=== PATIENT | male | born 1965 | race Caucasian/White ===

== ENCOUNTER 2020-04-23 08:57 | Outpatient (REF) | payer OTHER, SELFPAY ==
[2020-04-23 11:14] LABS: MANUAL DIFF FLAG NO
[2020-04-23 11:27] LABS: Basophils Absolute Auto 0.1 X10*3/uL (0.0-0.2); Eosinophils Absolute Auto 0.3 X10*3/uL (0.0-0.4); Eosinophils Percent Auto 6.8 % (0-4); Hematocrit 49.6 % (42-52); Hemoglobin 16.4 g/dl (14.0-18.0); Imm Gran Abs Auto 0.02 X10*3/uL (0.00-0.03); Imm Gran Pct Auto 0.4 % (0.0-0.4); Lymphocytes Absolute Auto 1.7 X10*3/uL (1.2-4.9); Lymphocytes Percent Auto 33.4 % (20-40); Mean Corpuscular HGB Conc 33.1 g/dl (31.0-36.0); Mean Corpuscular Volume 90.8 fL (80-98); Mean Platelet Volume 10.2 fL (9.4-12.4); Monocytes Absolute Auto 0.5 X10*3/uL (0.1-1.2); Monocytes Percent Auto 10.1 % (2-11); Neutrophils Absolute Auto 2.4 X10*3/uL (2.0-8.3); Neutrophils Percent Auto 48.3 % (45-73); Platelet Count 277 X10*3/uL (160-400); Red Blood Count 5.46 X10*6/uL (4.60-5.80); Red Cell Distribution Width 13.5 % (11.0-16.0)
[2020-04-23 12:04] LABS: Alanine Aminotransferase 74 U/L (0-40); Albumin Level 4.3 g/dL (3.5-5.0); Alkaline Phosphatase 105 U/L (39-117); Anion Gap 16 (12-20); Aspartate Amino Transferase 54 U/L (5-37); Bilirubin Total 0.7 mg/dL (0.0-1.0); Blood Urea Nitrogen 17 mg/dL (9-16); Carbon Dioxide 22 mmol/L (22-29); Chloride 105 mmol/L (96-108); Cholesterol 241 mg/dL; Estimated Glomerular Filt Rate > 60; Glucose Fasting 102 mg/dL (60-99); HDL Cholesterol 58 mg/dL; LDL Cholesterol Calculated 154 mg/dl; Potassium 4.9 mmol/l (3.3-5.1); Sodium 138 mmol/L (135-145); Total Protein 7.8 g/dL (6.5-8.0); Triglycerides 148 mg/dL
== END 2020-04-23 08:58 | disposition home or self-care (01) ==
LOC: HO.HMGCLDS 08:57
PROVIDERS: PCP Internal Medicine; Visit Provider Internal Medicine
DX: Z00.01 Encounter for general adult medical examination with abnormal findings (principal); K21.9 Gastro-esophageal reflux disease without esophagitis; E78.5 Hyperlipidemia, unspecified
CPT/HCPCS: 36415; 80053; 80061; 85025

== ENCOUNTER 2021-04-14 08:09 | Outpatient (REF) | payer OTHER, SELFPAY ==
[2021-04-14 12:35] LABS: Alanine Aminotransferase 78 U/L (0-40); Aspartate Amino Transferase 42 U/L (5-37); Cholesterol 212 mg/dL; Glucose Fasting 103 mg/dL (60-99); HDL Cholesterol 47 mg/dL; LDL Cholesterol Calculated 125 mg/dl; Triglycerides 201 mg/dL
== END 2021-04-14 08:10 | disposition home or self-care (01) ==
LOC: HO.HMGCLDS 08:09
PROVIDERS: PCP Internal Medicine; Visit Provider Internal Medicine
DX: E78.5 Hyperlipidemia, unspecified (principal); R73.01 Impaired fasting glucose
CPT/HCPCS: 36415; 80061; 82947; 84450; 84460

== ENCOUNTER 2021-06-04 09:45 | Outpatient (REF) | payer OTHER, SELFPAY ==
--- NOTE | ~2021-06-04 | XR_ITS ---
EXAMINATION: XR CHEST CLINICAL INFORMATION: Covid 19 COMPARISON: CT chest 06/12/2019. Chest x-ray 04/14/2016. TECHNIQUE: 2 views of the chest were obtained. FINDINGS: The lungs are expanded with patchy opacity seen in both lung bases and left midlung. Heart size and perivascular is normal. No gross bony abnormality seen. XR/XR chest 2V IMPRESSION: In patchy opacities in both lower lobes and left midlung suggestive of infiltrates or scarring. There is no recent chest x-ray available for comparison.
[2021-06-04 11:06] LABS: MANUAL DIFF FLAG NO
[2021-06-04 11:23] LABS: Basophils Absolute Auto 0.1 X10*3/uL (0.0-0.2); Basophils Percent Auto 1.2 % (0-2); Eosinophils Absolute Auto 0.5 X10*3/uL (0.0-0.4); Eosinophils Percent Auto 9.5 % (0-4); Hematocrit 46.5 % (42.0-52.0); Hemoglobin 15.1 g/dl (14.0-18.0); Lymphocytes Absolute Auto 1.7 X10*3/uL (1.2-4.9); Mean Corpuscular HGB Conc 32.5 g/dl (31.0-36.0); Mean Corpuscular Hemoglobin 29.5 pg (27.0-33.0); Mean Corpuscular Volume 90.8 fL (80.0-98.0); Mean Platelet Volume 9.3 fL (9.4-12.4); Monocytes Absolute Auto 0.5 X10*3/uL (0.1-1.2); Monocytes Percent Auto 10.5 % (2-11); Neutrophils Absolute Auto 2.1 x10*3/uL (2.0-8.3); Neutrophils Percent Auto 42.8 % (45-73); Platelet Count 600 X10*3/uL (160-400); Red Blood Count 5.12 X10*6/uL (4.60-5.80); Red Cell Distribution Width 12.8 % (11.0-16.0)
== END 2021-06-04 09:46 | disposition home or self-care (01) ==
LOC: HO.HMGCX 09:45
PROVIDERS: PCP Internal Medicine; Visit Provider Internal Medicine
DX: U07.1 COVID-19 (principal)
CPT/HCPCS: 36415; 71046; 85025

== ENCOUNTER 2021-06-13 10:25 | Outpatient (REF) | payer OTHER, SELFPAY ==
--- NOTE | ~2021-06-13 | XR_ITS ---
EXAMINATION: XR CHEST CLINICAL INFORMATION: Covid 19 COMPARISON: Chest x-ray on 06/04/2021 TECHNIQUE: 2 views of the chest were obtained. FINDINGS: Bilateral diffuse minimal lung zone predominant hazy opacities. No pleural effusions. No pneumothoraces. The cardiomediastinal silhouette is normal. XR/XR chest 2V IMPRESSION: Findings consistent with Covid pneumonia.
== END 2021-06-13 10:26 | disposition home or self-care (01) ==
LOC: HO.HMGCX 10:25
PROVIDERS: Visit Provider Physician Assistant Medical
DX: U07.1 COVID-19 (principal)
CPT/HCPCS: 71046

== ENCOUNTER 2021-06-13 15:21 | Emergency (ER) | payer OTHER, SELFPAY ==
--- NOTE | ~2021-06-13 | CT_ITS ---
EXAMINATION: CT ANGIOGRAM OF THE CHEST WITH AND WITHOUT CONTRAST (CT PULMONARY ANGIOGRAM FOR PE) CLINICAL INFORMATION: Reason for Exam sob s/p covid COMPARISON: None TECHNIQUE: Prior to contrast administration, noncontrast localization images were obtained. Subsequently, multidetector volumetric imaging was performed from the thoracic inlet to below the diaphragms following the administration of 80 mL Omnipaque 350 intravenous contrast. No contrast reaction reported Sagittal, coronal, and MIP oblique sagittal reformatted images were obtained on the CT workstation, uploaded to PACS, and reviewed. This CT examination was performed using dose optimization techniques as appropriate, variously including the following: *Automated exposure control *Adjustment of mA and/or kV according to patient size (this includes techniques or standardized protocols for targeted exams where dose is matched to indication/reason for exam; i.e. extremities or head) *Use of iterative reconstruction technique Total exam dose-length product 350 mGy-cm FINDINGS: QUALITY OF STUDY/CONTRAST BOLUS: Somewhat unsatisfactory bolus. There is nearly as much contrast in the aorta as the pulmonary arteries. PULMONARY ARTERIES: No convincing evidence for filling defect to suggest PE. Motion also limits this exam. THORACIC AORTA: No aneurysm or dissection. LUNG: Scattered areas of infiltrate in the lungs. These are predominantly peripheral. Bilateral lower lobes and left upper lobe greater than right upper lobe. PLEURA: No pleural effusion or pneumothorax. MEDIASTINUM: Some central adenopathy may be reactive. Attention to follow-up No evidence of septal bowing or right heart strain. CHEST WALL/AXILLA: No axillary or internal mammary lymphadenopathy. OSSEOUS STRUCTURES: No acute or suspicious osseous abnormality. UPPER ABDOMEN: Unremarkable. No reflux of contrast into the hepatic veins to suggest elevated right heart pressures. CT/CT angio chest PE protocol IMPRESSION: There is some limitation here due to late bolus and motion but no convincing evidence for filling defect to suggest a pulmonary embolism though it would be difficult to exclude a very peripheral embolism. Areas of infiltrate are noted with some central adenopathy which may be reactive. Attention to follow-up. VTE: negative
[2021-06-13 15:29] VITALS: BP 116/82; PULSE 87; RESP 18; TEMP 36.4; O2SAT 96; BMI 26.3
--- NOTE | 2021-06-13 19:54 | ECG_ITS ---
Test Reason : ?BLOOD CLOT Blood Pressure : / mmHG Vent. Rate : 079 BPM Atrial Rate : 079 BPM P-R Int : 148 ms QRS Dur : 086 ms QT Int : 370 ms P-R-T Axes : 060 020 020 degrees QTc Int : 424 ms Artifact in tracing Normal sinus rhythm Normal ECG When compared with ECG of 19-OCT-2017 04:19, No significant change was found Referred By: Generic ED Physician Electronically Signed By:KYRIE DELGADO
[2021-06-13 20:53] LABS: MANUAL DIFF FLAG NO
[2021-06-13 20:55] LABS: Basophils Absolute Auto 0.1 X10*3/uL (0.0-0.2); Basophils Percent Auto 1.1 % (0-2); Eosinophils Absolute Auto 0.5 X10*3/uL (0.0-0.4); Eosinophils Percent Auto 7.3 % (0-4); Hematocrit 45.7 % (42.0-52.0); Hemoglobin 15.2 g/dl (14.0-18.0); Imm Gran Abs Auto 0.01 X10*3/uL (0.00-0.03); Imm Gran Pct Auto 0.2 % (0.0-0.4); Lymphocytes Absolute Auto 2.3 X10*3/uL (1.2-4.9); Lymphocytes Percent Auto 35.1 % (20-40); Mean Corpuscular HGB Conc 33.3 g/dl (31.0-36.0); Mean Corpuscular Hemoglobin 30.1 pg (27.0-33.0); Mean Corpuscular Volume 90.5 fL (80.0-98.0); Mean Platelet Volume 9.3 fL (9.4-12.4); Monocytes Absolute Auto 0.7 X10*3/uL (0.1-1.2); Monocytes Percent Auto 10.4 % (2-11); Neutrophils Percent Auto 45.9 % (45-73); Platelet Count 329 X10*3/uL (160-400); Red Blood Count 5.05 X10*6/uL (4.60-5.80); Red Cell Distribution Width 13.5 % (11.0-16.0); White Blood Count 6.4 X10*3/uL (4.8-10.8)
[2021-06-13 21:02] LABS: D Dimer High Sensitivity 400 NG/ML
[2021-06-13 21:08] LABS: Anion Gap 12 (12-20); Blood Urea Nitrogen 8 mg/dL (9-16); Carbon Dioxide 25 mmol/L (22-29); Chloride 105 mmol/L (96-108); Creatinine Clr Calc Pharmacy 118.8; Estimated Glomerular Filt Rate > 60; Glucose Random 96 mg/dL (60-115); Potassium 4.2 mmol/L (3.3-5.1); Sodium 138 mmol/L (135-145)
[2021-06-13 21:12] LABS: COVID-19 Test Negative (Negative)
[2021-06-13 21:16] LABS: Troponin-I High Sensitivity < 3.5 ng/L (<3.5-35.0)
--- NOTE | 2021-06-13 22:08 | ED.GENADULT ---
HPI - General Adult General Chief complaint: General Medical Stated complaint: CT scan to rule out blood clot PCP referral Time Seen by Provider: 06/13/21 22:08 Source: patient Mode of arrival: ambulatory Limitations: no limitations History of Present Illness HPI narrative: Patient's history of COVID on 05/21 received prednisone 2 courses of antibiotics unable to get the monoclonal antibodies already received 2 doses of COVID vaccine in the past still on prednisone sent by PCP for increased shortness of breath which is not getting better saturating 96% at room air feels tight in his lungs no chest pain Related Data Home Medications Medication Instructions Recorded Confirmed flu vac [id number] 36mos up(PF) ml IM 04/23/20 04/27/21 lansoprazole 15 mg capsule,delayed 15 mg PO DAILY 12/09/20 04/27/21 release (Prevacid) Previous Rx's Medication Instructions Recorded lovastatin 20 mg tablet 20 mg PO DAILY #30 tab 12/09/20 valacyclovir 1 gram tablet 2,000 mg PO Q12H #4 tab 12/09/20 albuterol sulfate 90 mcg/actuation 2 puff INHALATION Q4-6H PRN #8.5 g 06/09/21 aerosol inhaler levofloxacin 750 mg tablet 750 mg PO DAILY 5 Days #5 tab 06/13/21 prednisone 20 mg tablet 40 mg PO DAILY 5 Days #10 tab 06/13/21 Allergies Allergy/AdvReac Type Severity Reaction Status Date / Time hydromorphone [Dilaudid] Allergy Mild throat Verified 06/13/21 15:29 closed/swelling Review of Systems Review of Systems: Yes all other systems are reviewed and are negative PMFSH Past Medical History Medical History Annual visit for general adult medical examination with abnormal findings COVID-19 virus infection Dyslipidemia (high LDL; low HDL) GERD (gastroesophageal reflux disease) Impaired fasting glucose Persistent cough Recurrent cold sores Surgical History Hx of colonoscopy No pertinent past surgical history Family History Family History Father HTN (hypertension) CVD (cardiovascular disease) Myocardial infarction Mother Diabetes mellitus Lung cancer Stroke Daughter No problems noted. Sister No problems noted. Sister No problems noted. Sister No problems noted. Social History Social History Housing: House Alcohol intake: never Patient Tobacco Use Status: Never used Tobacco e-Cigarette/Vaping Use: Never Used Second Hand Smoke Exposure: No Advance Directives: No Advance Directives Information Provided: Yes service: No Current occupational status: employed Physical Exam Vital Signs: Vital Signs: Last Vital Signs Temp 97.6 F 06/13/21 15:29 Pulse 87 06/13/21 15:29 Resp 18 06/13/21 15:29 BP 116/82 06/13/21 15:29 Pulse Ox 96 06/13/21 15:29 BMI result Body Mass Index 26.3 Appearance: Alert. Oriented X3. No acute distress. ENT: Pharynx normal. Oral Mucosa moist Neck: Normal inspection. Neck supple. CVS: Normal heart rate and rhythm. Pulses normal. Respiratory: No respiratory distress. Equal air entry bilateral, no wheezing/rales/rhonchi Abdomen: Soft and nontender. Bowel sounds are present, no mass palpable, Skin: Skin warm and dry. Normal skin color. Normal skin turgor. Extremities: No lower extremity edema. No calf tenderness Neuro: Oriented X 3. No motor deficit. Medical Decision Making MDM Narrative Medical decision making narrative: Patient is status post COVID order been weakened against COVID CTA chest showed for blood changes in bilateral lungs. No PE. Patient advised to continue prednisone and follow up with behavioral health specialist and do the incentive spirometry Lab Data Lab results reviewed: Yes I reviewed the patient's lab results. Result diagrams: 06/13/21 20:47 06/13/21 20:47 Labs: Lab Results 06/13/21 06/13/21 06/13/21 Range/Units 20:37 20:47 20:47 WBC 6.4 (4.8-10.8) X10*3/uL RBC 5.05 (4.60-5.80) X10*6/uL Hgb 15.2 (14.0-18.0) g/dl Hct 45.7 (42.0-52.0) % MCV 90.5 (80.0-98.0) fL MCH 30.1 (27.0-33.0) pg MCHC 33.3 (31.0-36.0) g/dl RDW 13.5 (11.0-16.0) % Plt Count 329 D (160-400) X10*3/uL MPV 9.3 L (9.4-12.4) fL Immature Gran % (Auto) 0.2 (0.0-0.4) % Neut % (Auto) 45.9 (45-73) % Lymph % (Auto) 35.1 (20-40) % [place] % (Auto) 10.4 (2-11) % Eos % (Auto) 7.3 H (0-4) % Baso % (Auto) 1.1 (0-2) % Lymph # (Auto) 2.3 (1.2-4.9) X10*3/uL [place] # (Auto) 0.7 (0.1-1.2) X10*3/uL Eos # (Auto) 0.5 H (0.0-0.4) X10*3/uL Baso # (Auto) 0.1 (0.0-0.2) X10*3/uL Abs Immat Gran (auto) 0.01 (0.00-0.03) X10*3/uL Absolute Neuts (auto) 3.0 (2.0-8.3) x10*3/uL Absolute Nucleated RBC 0.000 (0.0-0.012) X10*3/uL Nucleated RBC % (auto) 0.0 (0.0-0.2) /100WBC D-Dimer High Sensitivty NG/ML Sodium 138 (135-145) mmol/L Potassium 4.2 (3.3-5.1) mmol/L Chloride 105 (96-108) mmol/L Carbon Dioxide 25 (22-29) mmol/L Anion Gap 12 (12-20) BUN 8 L (9-16) mg/dL Creatinine 0.78 (0.5-1.4) mg/dL Estim Creat Clear Calc 118.8 Estimated GFR > 60 Random Glucose 96 (60-115) mg/dL Calcium 9.0 (8.4-10.2) mg/dL Troponin I High Sens (<3.5-35.0) ng/L COVID-19 ([facility]) Negative (Negative) COVID-19 Clin Com See Note 06/13/21 06/13/21 Range/Units 20:47 20:48 WBC (4.8-10.8) X10*3/uL RBC (4.60-5.80) X10*6/uL Hgb (14.0-18.0) g/dl Hct (42.0-52.0) % MCV (80.0-98.0) fL MCH (27.0-33.0) pg MCHC (31.0-36.0) g/dl RDW (11.0-16.0) % Plt Count (160-400) X10*3/uL MPV (9.4-12.4) fL Immature Gran % (Auto) (0.0-0.4) % Neut % (Auto) (45-73) % Lymph % (Auto) (20-40) % [place] % (Auto) (2-11) % Eos % (Auto) (0-4) % Baso % (Auto) (0-2) % Lymph # (Auto) (1.2-4.9) X10*3/uL [place] # (Auto) (0.1-1.2) X10*3/uL Eos # (Auto) (0.0-0.4) X10*3/uL Baso # (Auto) (0.0-0.2) X10*3/uL Abs Immat Gran (auto) (0.00-0.03) X10*3/uL Absolute Neuts (auto) (2.0-8.3) x10*3/uL Absolute Nucleated RBC (0.0-0.012) X10*3/uL Nucleated RBC % (auto) (0.0-0.2) /100WBC D-Dimer High Sensitivty 400 NG/ML Sodium (135-145) mmol/L Potassium (3.3-5.1) mmol/L Chloride (96-108) mmol/L Carbon Dioxide (22-29) mmol/L Anion Gap (12-20) BUN (9-16) mg/dL Creatinine (0.5-1.4) mg/dL Estim Creat Clear Calc Estimated GFR Random Glucose (60-115) mg/dL Calcium (8.4-10.2) mg/dL Troponin I High Sens < 3.5 (<3.5-35.0) ng/L COVID-19 ([facility]) (Negative) COVID-19 Clin Com Discharge Plan Discharge Clinical Impression: Post-COVID chronic dyspnea Patient Disposition: Home, Self-Care Instructions: COVID-19 (Coronavirus Disease 2019) (ED) Additional Instructions: Do incentive spirometry as advised Follow with PCP if any concerns Continue to use inhaler every 4-6 hours as needed continue prednisone Follow with pulmonology Prescriptions: No Action albuterol sulfate 90 mcg/actuation HFA aerosol inhaler 2 puff inhalation Q4-6H PRN (Reason: shortness of breath or wheezing) Qty: 8.5 RF: 0 Afluria Qd 2019-(3yr up)(PF) 60 mcg (15 mcg x 4)/0.5 mL syringe IM RF: 0 lansoprazole [Prevacid] 15 mg capsule,delayed release(DR/EC) 15 mg PO DAILY RF: 0 valacyclovir 1 gram tablet 2,000 mg PO Q12H Qty: 4 RF: 5 lovastatin 20 mg tablet 20 mg PO DAILY Qty: 30 RF: 5 levofloxacin 750 mg tablet 750 mg PO DAILY 5 Days Qty: 5 RF: 0 prednisone 20 mg tablet 40 mg PO DAILY 5 Days Qty: 10 RF: 0 Interventions: ED Discharge Assessment Last Done: 06/14/21 00:40 Discharge Date/Time: 06/14/21 00:42
[2021-06-13] MEDS: iohexoL 350 MG/ML 100 ML INFUS..BTL 65 ML IV (23:30)
--- NOTE | 2021-06-14 01:25 | ED.GENADULT ---
HPI - General Adult General Chief complaint: General Medical Stated complaint: CT scan to rule out blood clot PCP referral Time Seen by Provider: 06/13/21 22:08 Source: patient Mode of arrival: ambulatory Limitations: no limitations Related Data Home Medications Medication Instructions Recorded Confirmed flu vac [id number] 36mos up(PF) ml IM 04/23/20 04/27/21 lansoprazole 15 mg capsule,delayed 15 mg PO DAILY 12/09/20 04/27/21 release (Prevacid) Previous Rx's Medication Instructions Recorded lovastatin 20 mg tablet 20 mg PO DAILY #30 tab 12/09/20 valacyclovir 1 gram tablet 2,000 mg PO Q12H #4 tab 12/09/20 albuterol sulfate 90 mcg/actuation 2 puff INHALATION Q4-6H PRN #8.5 g 06/09/21 aerosol inhaler levofloxacin 750 mg tablet 750 mg PO DAILY 5 Days #5 tab 06/13/21 prednisone 20 mg tablet 40 mg PO DAILY 5 Days #10 tab 06/13/21 Allergies Allergy/AdvReac Type Severity Reaction Status Date / Time hydromorphone [Dilaudid] Allergy Mild throat Verified 06/13/21 15:29 closed/swelling PMFSH Past Medical History Medical History Annual visit for general adult medical examination with abnormal findings COVID-19 virus infection Dyslipidemia (high LDL; low HDL) GERD (gastroesophageal reflux disease) Impaired fasting glucose Persistent cough Recurrent cold sores Surgical History Hx of colonoscopy No pertinent past surgical history Family History Family History Father HTN (hypertension) CVD (cardiovascular disease) Myocardial infarction Mother Diabetes mellitus Lung cancer Stroke Daughter No problems noted. Sister No problems noted. Sister No problems noted. Sister No problems noted. Social History Social History Housing: House Alcohol intake: never Patient Tobacco Use Status: Never used Tobacco e-Cigarette/Vaping Use: Never Used Second Hand Smoke Exposure: No Advance Directives: No Advance Directives Information Provided: Yes service: No Current occupational status: employed Physical Exam Vital Signs: Vital Signs: Last Vital Signs Temp 97.6 F 06/13/21 15:29 Pulse 87 06/13/21 15:29 Resp 18 06/13/21 15:29 BP 116/82 06/13/21 15:29 Pulse Ox 96 06/13/21 15:29 BMI result Body Mass Index 26.3 Medical Decision Making Lab Data Result diagrams: 06/13/21 20:47 06/13/21 20:47 Labs: Lab Results 06/13/21 06/13/21 06/13/21 Range/Units 20:37 20:47 20:47 WBC 6.4 (4.8-10.8) X10*3/uL RBC 5.05 (4.60-5.80) X10*6/uL Hgb 15.2 (14.0-18.0) g/dl Hct 45.7 (42.0-52.0) % MCV 90.5 (80.0-98.0) fL MCH 30.1 (27.0-33.0) pg MCHC 33.3 (31.0-36.0) g/dl RDW 13.5 (11.0-16.0) % Plt Count 329 D (160-400) X10*3/uL MPV 9.3 L (9.4-12.4) fL Immature Gran % (Auto) 0.2 (0.0-0.4) % Neut % (Auto) 45.9 (45-73) % Lymph % (Auto) 35.1 (20-40) % [place] % (Auto) 10.4 (2-11) % Eos % (Auto) 7.3 H (0-4) % Baso % (Auto) 1.1 (0-2) % Lymph # (Auto) 2.3 (1.2-4.9) X10*3/uL [place] # (Auto) 0.7 (0.1-1.2) X10*3/uL Eos # (Auto) 0.5 H (0.0-0.4) X10*3/uL Baso # (Auto) 0.1 (0.0-0.2) X10*3/uL Abs Immat Gran (auto) 0.01 (0.00-0.03) X10*3/uL Absolute Neuts (auto) 3.0 (2.0-8.3) x10*3/uL Absolute Nucleated RBC 0.000 (0.0-0.012) X10*3/uL Nucleated RBC % (auto) 0.0 (0.0-0.2) /100WBC D-Dimer High Sensitivty NG/ML Sodium 138 (135-145) mmol/L Potassium 4.2 (3.3-5.1) mmol/L Chloride 105 (96-108) mmol/L Carbon Dioxide 25 (22-29) mmol/L Anion Gap 12 (12-20) BUN 8 L (9-16) mg/dL Creatinine 0.78 (0.5-1.4) mg/dL Estim Creat Clear Calc 118.8 Estimated GFR > 60 Random Glucose 96 (60-115) mg/dL Calcium 9.0 (8.4-10.2) mg/dL Troponin I High Sens (<3.5-35.0) ng/L COVID-19 ([facility]) Negative (Negative) COVID-19 Clin Com See Note 06/13/21 06/13/21 Range/Units 20:47 20:48 WBC (4.8-10.8) X10*3/uL RBC (4.60-5.80) X10*6/uL Hgb (14.0-18.0) g/dl Hct (42.0-52.0) % MCV (80.0-98.0) fL MCH (27.0-33.0) pg MCHC (31.0-36.0) g/dl RDW (11.0-16.0) % Plt Count (160-400) X10*3/uL MPV (9.4-12.4) fL Immature Gran % (Auto) (0.0-0.4) % Neut % (Auto) (45-73) % Lymph % (Auto) (20-40) % [place] % (Auto) (2-11) % Eos % (Auto) (0-4) % Baso % (Auto) (0-2) % Lymph # (Auto) (1.2-4.9) X10*3/uL [place] # (Auto) (0.1-1.2) X10*3/uL Eos # (Auto) (0.0-0.4) X10*3/uL Baso # (Auto) (0.0-0.2) X10*3/uL Abs Immat Gran (auto) (0.00-0.03) X10*3/uL Absolute Neuts (auto) (2.0-8.3) x10*3/uL Absolute Nucleated RBC (0.0-0.012) X10*3/uL Nucleated RBC % (auto) (0.0-0.2) /100WBC D-Dimer High Sensitivty 400 NG/ML Sodium (135-145) mmol/L Potassium (3.3-5.1) mmol/L Chloride (96-108) mmol/L Carbon Dioxide (22-29) mmol/L Anion Gap (12-20) BUN (9-16) mg/dL Creatinine (0.5-1.4) mg/dL Estim Creat Clear Calc Estimated GFR Random Glucose (60-115) mg/dL Calcium (8.4-10.2) mg/dL Troponin I High Sens < 3.5 (<3.5-35.0) ng/L COVID-19 ([facility]) (Negative) COVID-19 Clin Com Discharge Plan Discharge Clinical Impression: Post-COVID chronic dyspnea Patient Disposition: Home, Self-Care Instructions: COVID-19 (Coronavirus Disease 2019) (ED) Additional Instructions: Do incentive spirometry as advised Follow with PCP if any concerns Continue to use inhaler every 4-6 hours as needed continue prednisone Follow with pulmonology Prescriptions: No Action albuterol sulfate 90 mcg/actuation HFA aerosol inhaler 2 puff inhalation Q4-6H PRN (Reason: shortness of breath or wheezing) Qty: 8.5 RF: 0 Afluria Qd 2019-(3yr up)(PF) 60 mcg (15 mcg x 4)/0.5 mL syringe IM RF: 0 lansoprazole [Prevacid] 15 mg capsule,delayed release(DR/EC) 15 mg PO DAILY RF: 0 valacyclovir 1 gram tablet 2,000 mg PO Q12H Qty: 4 RF: 5 lovastatin 20 mg tablet 20 mg PO DAILY Qty: 30 RF: 5 levofloxacin 750 mg tablet 750 mg PO DAILY 5 Days Qty: 5 RF: 0 prednisone 20 mg tablet 40 mg PO DAILY 5 Days Qty: 10 RF: 0 Interventions: ED Discharge Assessment Last Done: 06/14/21 00:40 Discharge Date/Time: 06/14/21 00:42
== END 2021-06-14 00:42 | disposition home or self-care (01) ==
PROVIDERS: Emergency Provider Internal Medicine; PCP Internal Medicine
DX: R06.00 Dyspnea, unspecified (principal); U09.9 Post COVID-19 condition, unspecified; Z20.822 Contact with and (suspected) exposure to COVID-19
CPT/HCPCS: 36415; 71275; 80048; 84484; 85025; 85379; 87635; 93005; 99284; Q9967

== ENCOUNTER → 2021-06-25 09:43 | Outpatient (BNVA) | payer OTHER, SELFPAY | PROVIDERS: PCP Internal Medicine; Visit Provider Internal Medicine Pulmonary Disease ==

== ENCOUNTER 2021-07-23 08:53 | Outpatient (REF) | payer OTHER, SELFPAY ==
--- NOTE | 2021-07-23 11:00 | PFT_ITS ---
INDICATION: Dyspnea. SPIROMETRY: The FEV1 to FVC is 83% with an FEV1 of 3.72 L, which is 92% predicted and FVC of 4.46 L, which is 84% predicted. No significant response to bronchodilators noted. Maximum voluntary ventilation 98% predicted. LUNG VOLUMES: Total lung capacity 94% predicted. DIFFUSION CAPACITY: DLCO 80% predicted. COMPARISONS: None. INTERPRETATION: No obstructive nor restrictive ventilatory defects identified. No significant response to bronchodilators noted. Normal maximum voluntary ventilation. Lung volumes are within normal limits except for decrease in the expiratory reserve volume likely secondary to slightly elevated BMI. Diffusion capacity is mildly decreased. Clinical correlation warranted. Jay Swift MD MR/MODL / [id number]
== END 2021-07-23 08:54 | disposition home or self-care (01) ==
LOC: HO.RESP 08:53
PROVIDERS: PCP Internal Medicine; Visit Provider Internal Medicine Pulmonary Disease
DX: R06.00 Dyspnea, unspecified (principal); U09.9 Post COVID-19 condition, unspecified
CPT/HCPCS: 94060; 94727; 94729

== ENCOUNTER 2021-07-31 08:32 | Outpatient (REF) | payer OTHER, SELFPAY ==
--- NOTE | ~2021-07-31 | CT_ITS ---
EXAMINATION: CT CHEST WITHOUT CONTRAST CLINICAL INFORMATION: Follow-up infiltrates. History of COVID infection. COMPARISON: Previous chest CTA chest x-ray May 2021. TECHNIQUE: Multidetector volumetric CT imaging of the chest was done. Axial MIP volume rendering provided. Sagittal and coronal reformatted images were obtained. This CT examination was performed using dose optimization techniques as appropriate, variously including the following: *Automated exposure control *Adjustment of mA and/or kV according to patient size (this includes techniques or standardized protocols for targeted exams where dose is matched to indication/reason for exam; i.e. extremities or head) *Use of iterative reconstruction technique DLP: 177 mGy-cm FINDINGS: LUNGS: There is interval improvement in the peripheral infiltrates compared to May 2021 exam. There is residual faint ground-glass attenuation seen in these areas, greatest in the bilateral lower lobes. There is residual linear scarring or subsegmental atelectasis seen at the lung bases as well, left greater than right. No new area of involvement is seen. No evidence of emphysema or bronchiectasis is seen. No endobronchial or endotracheal lesion is seen. MEDIASTINUM: There are small mediastinal lymph nodes that are stable. No enlarged lymph nodes are seen. The heart does not appear enlarged. There is no pericardial effusion. The thoracic aorta is normal in caliber. PLEURA: There is no pleural effusion. No pleural mass or thickening. AXILLA: No lymphadenopathy. UPPER ABDOMEN: Unremarkable. OSSEOUS STRUCTURES: Unremarkable. CT/CT chest wo con IMPRESSION: Improved peripheral infiltrates from May 2021. Residual ground-glass attenuation seen in these areas and linear scarring or subsegmental atelectasis at the lung bases. Fleischner guidelines were followed.
== END 2021-07-31 08:33 | disposition home or self-care (01) ==
LOC: HO.CT 08:32
PROVIDERS: Visit Provider Internal Medicine Pulmonary Disease
DX: R93.89 Abnormal findings on diagnostic imaging of other specified body structures (principal)
CPT/HCPCS: 71250

== ENCOUNTER → 2021-08-04 09:32 | Outpatient (BNVA) | payer OTHER, SELFPAY | PROVIDERS: PCP Internal Medicine; Visit Provider Internal Medicine Pulmonary Disease ==

== ENCOUNTER 2021-10-24 08:19 | Outpatient (REF) | payer OTHER, SELFPAY ==
[2021-10-24 11:23] LABS: Estimated Average Glucose 114 mg/dL; Hemoglobin A1c % 5.6 %
[2021-10-24 11:41] LABS: Alanine Aminotransferase 26 U/L (0-40); Albumin Level 4.2 g/dL (3.5-5.0); Alkaline Phosphatase 94 U/L (39-117); Anion Gap 13 (12-20); Aspartate Amino Transferase 28 U/L (5-37); Bilirubin Total 0.9 mg/dL (0.0-1.0); Blood Urea Nitrogen 11 mg/dL (9-16); Calcium 9.2 mg/dL (8.4-10.2); Carbon Dioxide 24 mmol/L (22-29); Chloride 106 mmol/L (96-108); Cholesterol 188 mg/dL; Estimated Glomerular Filt Rate > 60; Glucose Fasting 110 mg/dL (60-99); HDL Cholesterol 52 mg/dL; LDL Cholesterol Calculated 124 mg/dl; Potassium 4.2 mmol/L (3.3-5.1); Sodium 139 mmol/L (135-145); Triglycerides 64 mg/dL
== END 2021-10-24 08:20 | disposition home or self-care (01) ==
LOC: HO.HMGCLDS 08:19
PROVIDERS: PCP Internal Medicine; Visit Provider Internal Medicine
DX: E78.5 Hyperlipidemia, unspecified (principal); K21.9 Gastro-esophageal reflux disease without esophagitis; R73.01 Impaired fasting glucose
CPT/HCPCS: 36415; 80053; 80061; 83036

== ENCOUNTER 2022-09-15 09:07 | Outpatient (REF) | payer OTHER, SELFPAY ==
[2022-09-15 11:47] LABS: Estimated Average Glucose 111 mg/dL; Hemoglobin A1c % 5.5 %
[2022-09-15 12:06] LABS: Alanine Aminotransferase 26 U/L (0-40); Anion Gap 10 (12-20); Aspartate Amino Transferase 25 U/L (5-37); Blood Urea Nitrogen 13 mg/dL (9-16); Carbon Dioxide 26 mmol/L (22-29); Chloride 106 mmol/L (96-108); Cholesterol 219 mg/dL; Estimated Glomerular Filt Rate > 60; Glucose Fasting 100 mg/dL (60-99); HDL Cholesterol 47 mg/dL; LDL Cholesterol Calculated 146 mg/dl; Potassium 4.7 mmol/L (3.3-5.1); Sodium 137 mmol/L (135-145); Triglycerides 133 mg/dL
[2022-09-15 12:23] LABS: Vitamin D 25-OH Total 25.5 ng/mL (>30)
== END 2022-09-15 09:08 | disposition home or self-care (01) ==
LOC: HO.HMGCLDS 09:07
PROVIDERS: PCP Internal Medicine; Visit Provider Internal Medicine
DX: Z00.01 Encounter for general adult medical examination with abnormal findings (principal); K21.9 Gastro-esophageal reflux disease without esophagitis; R73.01 Impaired fasting glucose; E78.5 Hyperlipidemia, unspecified
CPT/HCPCS: 36415; 80048; 80061; 82306; 83036; 84450; 84460

== ENCOUNTER 2022-10-18 17:07 | Outpatient (REF) | payer OTHER, SELFPAY ==
[2022-10-18 18:02] LABS: Influenza A PCR NEGATIVE (Negative); Influenza B PCR NEGATIVE (Negative); Resp Syncy Virus RNA Qual PCR NEGATIVE (Negative); SARS COV2 PCR INHOUSE NEGATIVE (Negative)
== END 2022-10-18 17:08 | disposition home or self-care (01) ==
LOC: HO.LNP 17:07
PROVIDERS: Visit Provider Nurse Practitioner Family
DX: Z20.822 Contact with and (suspected) exposure to COVID-19 (principal); R09.89 Other specified symptoms and signs involving the circulatory and respiratory systems
CPT/HCPCS: 0241U

== ENCOUNTER 2023-04-19 09:30 | Outpatient (REF) | payer OTHER, SELFPAY ==
[2023-04-19 11:59] LABS: Cholesterol 168 mg/dL (<200); HDL Cholesterol 51 mg/dL (>40); LDL Cholesterol Calculated 103 mg/dL (<100); Triglycerides 74 mg/dL (<150); Vitamin D 25-OH Total 34.8 ng/mL (>30)
== END 2023-04-19 09:31 | disposition home or self-care (01) ==
LOC: HO.HMGCLDS 09:30
PROVIDERS: PCP Internal Medicine; Visit Provider Internal Medicine
DX: E78.5 Hyperlipidemia, unspecified (principal); E55.9 Vitamin D deficiency, unspecified
CPT/HCPCS: 36415; 80061; 82306

== ENCOUNTER 2023-05-11 11:48 | Outpatient (AMB) | payer OTHER, SELFPAY ==
[2023-05-11 12:01] VITALS: BP 120/78; PULSE 77; O2SAT 97
--- NOTE | 2023-05-11 12:01 | MHC.PC.OV ---
Vital Signs 05/11/23 12:01 Height 6 ft Weight 221 lb 8 oz BMI 30.0 BP 120/78 Blood Pressure Location Rt brachial Position Sitting Pulse 77 Pulse Source Pulse Oximeter Pulse Oximetry (%) 97 Oxygen Delivery Method Room Air Intake Visit Reasons: annual PE Intake Note: Pt is here for his Annual PE Allergies hydromorphone [Dilaudid] Allergy (Mild, Verified 05/11/23 12:48) throat closed/swelling Medication List - Last Reconciled 05/11/23 by Hanh Rodríguez MD lansoprazole 15 mg PO DAILY lovastatin 40 mg PO DAILY valacyclovir 2,000 mg (2 x 1 gram) PO Q12H Tobacco use date assessed: 05/11/23 Dental Screening Dental Screen Date: 05/11/23 Did you have a dental visit in the last 12 months?: Yes Did you have a dental problem in the last 6 months where you did not have access to dental care?: No Was dental information given to patient?: Patient has dentist HPI annual PE HPI Details 57-year-old male, here today for his physical exam. Has dyslipidemia currently stable controlled on lovastatin 40 mg taken daily. He also takes lansoprazole as needed for heartburn symptoms. Up-to-date with his screening colonoscopy [place] [address] Mulligan with removal of hyperplastic polyp, procedure to be recheck again in 2027. He has had his flu shot, given today, but has not yet had his COVID booster, up-to-date with his Tdap . He has been feeling well with no complaints at present time. [facility] Medical History (Updated 05/11/23 @ 12:50 by Hanh Rodríguez MD) Vitamin D deficiency History of COVID-19 COVID-19 virus infection Impaired fasting glucose Annual visit for general adult medical examination with abnormal findings GERD (gastroesophageal reflux disease) Dyslipidemia (high LDL; low HDL) Recurrent cold sores Surgical History Hx of colonoscopy No pertinent past surgical history Family History Father HTN (hypertension) CVD (cardiovascular disease) Myocardial infarction Mother Diabetes mellitus Lung cancer Stroke Daughter No problems noted. Sister No problems noted. Sister No problems noted. Sister No problems noted. Social History Housing: House Alcohol intake: never Patient Tobacco Use Status: Never used Tobacco e-Cigarette/Vaping Use: Never Used Second Hand Smoke Exposure: No service: No Current occupational status: employed Cognitive needs: No Hearing needs: No Vision needs: Yes Questionnaire PHQ-9 Over the last 2 weeks, how often have you been bothered by any of the following problems? 1. Little interest or pleasure in doing things: not at all 2. Feeling down, depressed, or hopeless: not at all 3. Trouble falling or staying asleep, or sleeping too much: not at all 4. Feeling tired or having little energy: not at all 5. Poor appetite or overeating: not at all 6. Feeling bad about yourself - or that you are a failure or have let yourself or your family down: not at all 7. Trouble concentrating on things, such as reading the newspaper or watching television: not at all 8. Moving or speaking so slowly that other people could have noticed. Or the opposite - being so fidgety or restless that you have been moving around a lot more than usual: not at all 9. Thoughts that you would be better off or of hurting yourself in some way: not at all Total score: 0 Depression Screening Interpretation: Negative Depression Screening Done: Yes 95185 - PHQ-9 Billing: Yes Source: Developed by Drs. Jamshid Sue, Zhanna Ferrer, James Toledo and colleagues, with an educational agapito from [employer]. Thrive Questionnaire Date Thrive assessed: 05/11/23 I am a: Patient What is your living situation today?: I have a steady place to live Within the past 12 months, did the food you bought not last and you didn't have the money to get more?: Never true Within the past 12 months, did you worry whether your food would run out before you got money to buy more?: Never true Do you have trouble paying for medicines?: No Do you have trouble getting transportation to medical appointments?: No Do you have trouble paying your heating and electricity bill?: No Do you have trouble taking care of your child, family member or friend?: No Do you have trouble with day-to-day activities such as bathing, preparing meals, shopping, managing finances, etc.?: No Are you currently unemployed and looking for a job?: No Are you interested in more education?: No AUDIT C Alcohol Use Questionnaire (AUDIT-C) 1. How often do you have a drink containing alcohol?: Monthly or less 2. How many drinks containing alcohol do you have on a typical day when you are drinking?: 1 or 2 3. How often do you have six or more drinks on one occasion?: Never Total Score: 1 ROBEL-7 AMB Questionnaire ROBEL-7 Date ROBEL - 7 assessed: 06/02/22 Feeling nervous, anxious, or on edge: 1 = Several days Not being able to stop or control worryin = Not at all Worrying too much about different things: 1 = Several days Trouble relaxin = Several days Being so restless that it is hard to sit still: 0 = Not at all Becoming easily annoyed or irritable: 0 = Not at all Feeling afraid as if something awful might happen: 0 = Not at all Total ROBEL-7 score (0-4 normal; 5-9 mild; 10-14 moderate; 15-21 severe): 3 Source: Developed by Drs. Jamshid Sue, Zhanna Ferrer, James Toledo and colleagues, with an educational agapito from [employer]. ROBEL-7 Assessment Billing ROBEL-7 Assessment Tool: ROBEL-7 Assessment 52976 Review of Systems Const Denies body aches, Denies fatigue, Denies fever(s), Denies headache(s) and Denies weakness Eyes Denies change in vision ENT Denies dizziness, Denies headache(s), Denies nasal congestion, Denies nasal discharge and Denies sore throat Card Denies chest pain, Denies lightheadedness, Denies palpitations and Denies dyspnea Resp Denies chest congestion, Denies cough, Denies dyspnea and Denies wheezing GI Denies abdominal pain, Denies change in bowel habits and Denies heartburn Denies hematuria, Denies difficulty urinating, Denies dysuria, Denies urinary frequency and Denies urinary urgency Musc Reports no additional complaints Skin/Breast Denies breast pain, Denies breast mass, Denies lesions and Denies rash Neuro Denies dizziness, Denies headache(s) and Denies weakness Endo Denies fatigue, Denies polydipsia, Denies polyuria and Denies palpitations Richie/Lymph Denies easy bruising Aller/Immun Denies seasonal rhinorrhea and Denies wheezing Physical exam (Primary Care) Vital Signs: Last Vital Signs Pulse 77 05/11/23 12:01 BP 120/78 05/11/23 12:01 Pulse Ox 97 05/11/23 12:01 Oxygen Delivery Method Room Air 05/11/23 12:01 BMI result Body Mass Index 30.0 Tobacco/Smoking Status: Tobacco use Status Tobacco use date assessed 05/11/23 05/11/23 12:08 Patient Tobacco Use Status Never used Tobacco 05/11/23 12:01 e-Cigarette/Vaping Use Never Used 05/11/23 12:01 PHQ-9: PHQ-9 Score PHQ-9: Total score 0 05/11/23 12:56 Depression Screening Interpretation: Negative Thrive Assessment: Date of Thrive Assessment Date Thrive assessed 05/11/23 05/11/23 12:56 Const General: comfortable, no acute distress and alert Orientation/consciousness: patient oriented x3 Limitations: no limitations HENMT Mouth: moist mucous membranes Eyes General: appearance normal, both eyes and all related structures Neck Neck: Yes full ROM, Yes no lymphadenopathy and Yes supple Resp Effort & Inspection: normal respiratory effort and able to speak in complete sentences Auscultation: clear to auscultation bilaterally Cardio Rate: regular rate Rhythm: regular rhythm Heart sounds: S1 normal heart sound present and S2 normal heart sound present GI Palpation (GI): Soft to palpation, nontender, no guarding and no masses Auscultation: normal bowel sounds General: Yes no CVA tenderness Male General Exam: Yes normal external exam Back/Spine/Pelvis Back: no CVA tenderness Skin General skin exam: no rashes or lesions noted Neuro General: patient oriented x3, gait normal, tone normal, moves all extremities, Normal light touch and pain sensation and no focal motor deficits Extrem General: Yes full ROM, Yes no joint enlargement, Yes no clubbing, cyanosis or edema and Yes no calf tenderness Psych Appearance: grossly normal and well kempt Mental Status: mental status grossly normal Speech and movement: Normal speech and movement present Affect: normal affect Attitude: cooperative Thought process: Normal thought process present Office Procedures Flu Questionnaire Does the patient have a severe egg allergy?: No Does the patient have severe life threatening allergies?: No Does the patient have a fever or illness today?: No Has the patient ever had Guillain-Lansing Syndrome?: No Has the patient ever had any past reaction to a flu shot?: No Immunizations flu vacc [id number] 6mos up(PF) 60 mcg(15 mcgx4)/0.5 mL IM syringe Performing Provider: Hanh Rodríguez MD Performing Location: [facility] Administered by: Regina Morrissey CMA on 05/11/23 12:52 Dose Route Admin Location Dispensed Lot Number Expiration Date NDC Tool Procurement Coordinator 0.5 mL IM Left Deltoid 0.5 mL [id number] 11/27/23 [id number] [employer] VIS Given Date VIS Provided VIS Publication Date 05/11/23 Single Vaccine 21 Eligibility Eligibility Date Funding Source Not VFC Eligible 05/11/23 Private Results Reviewed Results Reviewed: ENTERED: 04/19/[address]: ORDERED: Lipid Panel, Vitamin D 25-OH Test Result Flag Reference Site Triglyceride 74 <150 mg/dL Desirable Triglyceride: less than 150 mg/dL Borderline High Triglyceride 150-199 mg/dL High Triglyceride: 200-499 mg/dL Very High Triglyceride: greater than or equal to 5OO mg/dL Cholesterol 168 <200 mg/dL Desirable Cholesterol: less than 200 mg/dL Borderline High Cholesterol: 200-239 mg/dL High Cholesterol: greater than 239 mg/dL LDL Calculated 103 H <100 mg/dL Desirable LDL: less than 100 mg/dL Near Optimal/Above Optimal LDL: 110-129 mg/dL Borderline High LDL: 130-159 mg/dL High LDL: 160-189 mg/dL Very High LDL: greater than or equal to 190 mg/dL HDL 51 >40 mg/dL Desirable HDL: greater than 40 mg/dL Note: This HDL assay may give artificially low results in patients with liver disease. Vit D 25-OH Tot 34.8 >30 ng/mL Health Based Reference Values* < 20 ng/mL Deficient 20-30 ng/mL Insufficient > 30 ng/mL Sufficient Name: Marlon Meek Age/Sex: 57/M : 1965 Unit#: [id number] Attend Dr: Hanh Rodríguez MD Re09/15/22 Status: DEP REF Location: [facility] Disch: SPEC : [id number] MICHAEL: 09/15/22 STATUS: COMP REQ : [id number] RECD: 09/15/22-[address]: Hanh Rodríguez MD COMP: 09/15/22-3 ENTERED: 09/15/22 [facility] DR: ORDERED: Met Prof Fast, AST, ALT, Lipid Panel, Vitamin D 25-OH Test Result Flag Reference Site Sodium 137 135-145 mmol/L Potassium 4.7 3.3-5.1 mmol/L CL 106 96-108 mmol/L CO2 26 22-29 mmol/L Gap 10 L 12-20 BUN 13 9-16 mg/dL Creat 0.99 0.5-1.4 mg/dL EGFR > 60 NOTE: For -[place] individuals, multiply the result by 1.210. Chronic Kidney Disease: Estimated GFR < 60 mL/min/1.73m2 Severe Kidney Disease: Estimated GFR < 15 mL/min/1.73m2 FBS 100 H 60-99 mg/dL A fasting glucose from 100-125 mg/dl is considered impaired (pre-diabetes). CA 9.0 8.4-10.2 mg/dL AST (GOT) 25 5-37 U/L ALT (GPT) 26 0-40 U/L Triglyceride 133 mg/dL Desirable Triglyceride: less than 150 mg/dL Borderline High Triglyceride 150-199 mg/dL High Triglyceride: 200-499 mg/dL Very High Triglyceride: greater than or equal to 5OO mg/dL Chol 219 mg/dL Desirable Cholesterol: less than 200 mg/dL Borderline High Cholesterol: 200-239 mg/dL High Cholesterol: greater than 239 mg/dL LDL Calculated 146 mg/dl Desirable LDL: less than 100 mg/dL Near Optimal/Above Optimal LDL: 110-129 mg/dL Borderline High LDL: 130-159 mg/dL High LDL: 160-189 mg/dL Very High LDL: greater than or equal to 190 mg/dL HDL 47 mg/dL Desirable HDL: greater than 40 mg/dL Note: This HDL assay may give artificially low results in patients with liver disease. Vit D 25-OH Tot 25.5 >30 ng/mL Health Based Reference Values* < 20 ng/mL Deficient 20-30 ng/mL Insufficient > 30 ng/mL Sufficient Assessment and Plan Assessment & Plan (1) Annual visit for general adult medical examination with abnormal findings: Code(s): Z00.01 - Encounter for general adult medical examination with abnormal findings Plan: Recent fasting labs reviewed with patient. Recommended dental visit every 6 months and regular eye exams, at least every 2 years. Take adequate calcium in diet and vitamin-D 3 at 2000 IU per cap once a day, in addition to weight-bearing exercises to help maintain good muscle tone and weight control. Instructed to do self-testicular exam check for any mass. Flu vaccine given today, did not want to get COVID vaccination, up-to-date with his Tdap. He is also up-to-date with screening colonoscopy due again in 2027 (2) Dyslipidemia (high LDL; low HDL): Code(s): E78.5 - Hyperlipidemia, unspecified Plan: Reviewed recent fasting lipid profile with patient with levels within normal limits . Continue with lovastatin 40 mg daily , in addition to adherence to low-cholesterol diet and regular exercise, at least 30 minutes 3 to 4 times a week. Advised patient to make healthy food choices, eat more fruits, vegetables, whole grains, wild caught fish and low-fat dairy. Limit amount of meat and fried or fatty food products, as well as processed foods and fast foods. Follow-up scheduled with repeat fasting lipid panel in 5 months. (3) Recurrent cold sores: Code(s): B00.1 - Herpesviral vesicular dermatitis Plan: Takes valacyclovir as needed at initial sign of cold sore (4) Impaired fasting glucose: Code(s): R73.01 - Impaired fasting glucose Plan: Your fasting blood sugars were elevated above 100 mg/dL. Impaired glucose metabolism O2 at risk for developing diabetes mellitus type 2, as well as heart attack and stroke later on. Lifestyle changes at just weight loss, healthy eating habits, and regular exercise are important, and can prevent the progression to diabetes (5) Needs flu shot: Code(s): Z23 - Encounter for immunization Plan: Flu vaccine given today Orders: Orders Influenza [id number] Immunization 05/11/23 Z23 - Encounter for immunization Coding Level of Care Code Est Pt Prev Care 40-64y(06773) Diagnoses Annual visit for general adult medical examination with abnormal findings Z00. Dyslipidemia (high LDL; low HDL) E78.5 Recurrent cold sores B00.1 Impaired fasting glucose R73.01 Needs flu shot Z23 Additional Codes RBOEL-7 Assessment Billing - ROBEL-7 Assessment Tool: ROBEL-7 Assessment [id number] ([id number])
== END 2023-05-11 13:30 | disposition home or self-care (01) ==
LOC: HO.HMGC 11:49
PROVIDERS: PCP Internal Medicine; Visit Provider Internal Medicine
DX: Z00.00 Encounter for general adult medical examination without abnormal findings (principal); E78.5 Hyperlipidemia, unspecified; B00.1 Herpesviral vesicular dermatitis; Z23 Encounter for immunization; R73.01 Impaired fasting glucose
CPT/HCPCS: 90471; 90686; 99396

== ENCOUNTER 2023-06-28 12:24 | Outpatient (AMB) | payer OTHER, SELFPAY ==
--- NOTE | 2023-06-28 12:38 | A.OFFPC_ITS ---
Vital Signs 06/28/23 12:40 Height 6 ft Weight 201 lb BMI 27.3 BP 108/80 Blood Pressure Location Rt brachial Position Sitting Pulse 76 Pulse Source Pulse Oximeter Pulse Oximetry (%) 97 Oxygen Delivery Method Room Air Intake Visit Reasons: Lower right Side Back Pain Intake Note: Pt is here today c/o Rt lower back pain into Rt groin and discomfort testicular area Allergies hydromorphone [Dilaudid] Allergy (Mild, Verified 06/28/23 13:24) throat closed/swelling Medication List - Last Reconciled 06/28/23 by Hanh Rodríguez MD lansoprazole 15 mg PO DAILY lovastatin 40 mg PO DAILY valacyclovir 2,000 mg (2 x 1 gram) PO Q12H Tobacco use date assessed: 06/28/23 Dental Screening Dental Screen Date: 06/28/23 Did you have a dental visit in the last 12 months?: Yes Did you have a dental problem in the last 6 months where you did not have access to dental care?: Yes Was dental information given to patient?: Patient has dentist HPI Lower right Side Back Pain HPI Details 57-year-old male here today complaining acute aching pain on right upper quadrant and epigastric area sometimes radiating to the right mid back and right groin. This has been present now for the last several days, with no history of any trauma. Denies any bloating, no nausea, vomiting, alteration in bowel habits, or urinary symptoms. He takes lansoprazole at night for heartburn symptoms. Has strong family history for gallstones. [facility] Medical History Vitamin D deficiency History of COVID-19 COVID-19 virus infection Impaired fasting glucose Annual visit for general adult medical examination with abnormal findings GERD (gastroesophageal reflux disease) Dyslipidemia (high LDL; low HDL) Recurrent cold sores Surgical History Hx of colonoscopy No pertinent past surgical history Family History Father HTN (hypertension) CVD (cardiovascular disease) Myocardial infarction Mother Diabetes mellitus Lung cancer Stroke Daughter No problems noted. Sister No problems noted. Sister No problems noted. Sister No problems noted. Social History Housing: House Alcohol intake: never Patient Tobacco Use Status: Never used Tobacco e-Cigarette/Vaping Use: Never Used Second Hand Smoke Exposure: No service: No Current occupational status: employed Cognitive needs: No Hearing needs: No Vision needs: Yes Questionnaire PHQ-9 Over the last 2 weeks, how often have you been bothered by any of the following problems? Depression Screening Interpretation: Negative Depression Screening Done: Yes Source: Developed by Drs. Jamshid Sue, James Zuluaga and colleagues, with an educational agapito from [employer]. Thrive Questionnaire Date Thrive assessed: 05/11/23 ROBEL-7 AMB Questionnaire ROBEL-7 Date ROBEL - 7 assessed: 06/02/22 Source: Developed by Drs. Jamshid Sue, Zhanna Ferrer, James Toledo and colleagues, with an educational agapito from [employer]. Review of Systems Const All systems reviewed & are unremarkable except as noted in HPI and below Physical exam (Primary Care) Vital Signs: Last Vital Signs Pulse 76 06/28/23 12:40 BP 108/80 06/28/23 12:40 Pulse Ox 97 06/28/23 12:40 Oxygen Delivery Method Room Air 06/28/23 12:40 BMI result Body Mass Index 27.3 Tobacco/Smoking Status: Tobacco use Status Tobacco use date assessed 06/28/23 06/28/23 12:40 Patient Tobacco Use Status Never used Tobacco 06/28/23 12:40 e-Cigarette/Vaping Use Never Used 06/28/23 12:40 Depression Screening Interpretation: Negative Thrive Assessment: Date of Thrive Assessment Date Thrive assessed 05/11/23 06/28/23 12:40 Const General: comfortable, no acute distress and alert Orientation/consciousness: patient oriented x3 HENMT Mouth: moist mucous membranes Neck Neck: Yes full ROM, Yes no lymphadenopathy and Yes supple Resp Effort & Inspection: normal respiratory effort and able to speak in complete sentences Auscultation: clear to auscultation bilaterally Cardio Rate: regular rate Rhythm: regular rhythm Heart sounds: S1 normal heart sound present and S2 normal heart sound present GI Palpation (GI): Soft to palpation, nontender, no guarding and no masses Auscultation: normal bowel sounds General: Yes no CVA tenderness Male General Exam: Yes normal external exam Back/Spine/Pelvis Back: no CVA tenderness Skin General skin exam: no rashes or lesions noted Neuro General: patient oriented x3, gait normal, tone normal, moves all extremities, Normal light touch and pain sensation and no focal motor deficits Extrem General: Yes full ROM, Yes no joint enlargement, Yes no clubbing, cyanosis or edema and Yes no calf tenderness Results AMB Urinalysis, Automated UA Leukoctes 0 Chandni/uL Last Edit by Nadeen Malagon CMA on 06/28/23 13:11 UA Nitrite Negative Last Edit by Nadeen Malagon CMA on 06/28/23 13:11 UA Urobilinogen 0.2 mg/dL Last Edit by Nadeen Malagon CMA on 06/28/23 13:11 UA Protein 0 mg/dL Last Edit by Nadeen Malagon CMA on 06/28/23 13:11 UA pH 6.0 Last Edit by Nadeen Malagon CMA on 06/28/23 13:11 UA Blood 0 Fercho/uL Last Edit by Nadeen Malagon CMA on 06/28/23 13:11 UA Specific [place] 1.025 Last Edit by Nadeen Malagon CMA on 06/28/23 13:11 UA Ketone Positive Last Edit by Nadeen Malagon CMA on 06/28/23 13:11 UA Bilirubin 0 mg/dL Last Edit by Nadeen Malagon CMA on 06/28/23 13:11 UA Glucose 0 mg/dL Last Edit by Nadeen Malagon CMA on 06/28/23 13:11 Results Reviewed Results Reviewed: Laboratory Last Values Urine pH (Auto) 6.0 06/28/23 13:08 Specific [place] (Auto) 1.025 06/28/23 13:08 Urine Protein (Auto) 0 mg/dL 06/28/23 13:08 Glucose (UA)(Auto) 0 mg/dL 06/28/23 13:08 Urine Ketones (Auto) Positive 06/28/23 13:08 Urine Blood (Auto) 0 Fercho/uL 06/28/23 13:08 Urine Nitrite (Auto) Negative 06/28/23 13:08 Urine Bilirubin (Auto) 0 mg/dL 06/28/23 13:08 Urine Urobilinogen (Auto) 0.2 mg/dL 06/28/23 13:08 Leukocyte Esterase (Auto) 0 Chandni/uL 06/28/23 13:08 Assessment and Plan Assessment & Plan (1) Right upper quadrant pain: Code(s): R10.11 - Right upper quadrant pain Plan: UA negative for infection, Ultrasound of abdomen ordered to rule out gallstone (2) GERD (gastroesophageal reflux disease): Code(s): K21.9 - Gastro-esophageal reflux disease without esophagitis Plan: Switch lansoprazole to a.m. dosing, an hour before eating. Advised to eat 3 meals a day do not skip me, discussed with patient avoidance of triggers for heartburn Orders: Orders US abdomen complete 06/28/23 R10.11 - Right upper quadrant pain AMB Urinalysis Automated 06/28/23 Z13.9 - Encounter for screening, unspecified Coding Level of Care Code Est Pt Level 3 (72911) Diagnoses Right upper quadrant pain R10.11 GERD (gastroesophageal reflux disease) K21.9
[2023-06-28 12:40] VITALS: BP 108/80; PULSE 76; O2SAT 97; BMI 27.3
== END 2023-06-28 16:23 | disposition home or self-care (01) ==
PROVIDERS: PCP Internal Medicine; Visit Provider Internal Medicine
DX: R10.11 Right upper quadrant pain (principal)
CPT/HCPCS: 81003; 99213

== ENCOUNTER 2023-07-07 09:46 | Outpatient (REF) | payer OTHER, SELFPAY ==
--- NOTE | ~2023-07-07 | US_ITS ---
EXAMINATION: US ABDOMEN COMPLETE CLINICAL INFORMATION: Right upper quadrant pain. COMPARISON: Ultrasound abdomen 07/03/2018. CT abdomen and pelvis 10/19/2017. TECHNIQUE: Real-time imaging of the abdominal viscera. FINDINGS: PANCREAS: Normal. ABDOMINAL AORTA: The proximal, mid, and distal segments are normal in caliber. INFERIOR VENA CAVA: Visualized portions are normal. LIVER: The liver is normal in size. The liver contour is normal. Echotexture is slightly increased. No focal hepatic lesion. There is no intrahepatic biliary duct dilatation seen. GALLBLADDER: The gallbladder is physiologically distended without evidence of stones, sludge, polyps, wall thickening or pericholecystic fluid. COMMON BILE DUCT: Normal in caliber measuring 0.3 cm in diameter. RIGHT KIDNEY: Normal. No hydronephrosis. No renal calculi or focal parenchymal lesions. The kidney measures 12.3 cm in maximum dimension. LEFT KIDNEY: Normal. No hydronephrosis. No renal calculi or focal parenchymal lesions. The kidney measures 11.4 cm in maximum dimension. SPLEEN: Normal. The spleen measures 11.3 cm in maximum dimension. FREE FLUID: None. US/US abdomen complete IMPRESSION: Slightly echogenic liver. Differential would include fatty infiltration and hepatocellular disease.
== END 2023-07-07 09:47 | disposition home or self-care (01) ==
LOC: HO.HMGCX 09:46
PROVIDERS: PCP Internal Medicine; Visit Provider Internal Medicine
DX: R10.11 Right upper quadrant pain (principal)
CPT/HCPCS: 76700

== ENCOUNTER 2023-09-30 07:52 | Outpatient (REF) | payer OTHER, SELFPAY ==
[2023-09-30 10:56] LABS: Alanine Aminotransferase 42 U/L (0-40); Aspartate Amino Transferase 35 U/L (5-37); Cholesterol 181 mg/dL (<200); Glucose Fasting 110 mg/dL (60-99); HDL Cholesterol 49 mg/dL (>40); LDL Cholesterol Calculated 113 mg/dL (<100); Triglycerides 96 mg/dL (<150)
== END 2023-09-30 07:53 | disposition home or self-care (01) ==
LOC: HO.HMGCLDS 07:52
PROVIDERS: PCP Internal Medicine; Visit Provider Internal Medicine
DX: R73.01 Impaired fasting glucose (principal); E78.5 Hyperlipidemia, unspecified
CPT/HCPCS: 36415; 80061; 82947; 84450; 84460

== ENCOUNTER 2023-11-02 11:31 | Outpatient (AMB) | payer OTHER, SELFPAY ==
--- NOTE | 2023-11-02 11:35 | A.OFFPC_ITS ---
Vital Signs 11/02/23 11:37 Height 6 ft Weight 200 lb BMI 27.1 BP 110/62 Blood Pressure Location Rt brachial Position Sitting Pulse 64 Pulse Source Pulse Oximeter Pulse Oximetry (%) 94 Oxygen Delivery Method Room Air Intake Visit Reasons: Rescheduled from 10/03/23 Intake Note: Pt is here today to f/u labs results Allergies hydromorphone [Dilaudid] Allergy (Mild, Verified 11/02/23 11:51) throat closed/swelling Medication List - Last Reconciled 11/02/23 by Hanh Rodríguez MD lansoprazole 15 mg PO DAILY lovastatin 40 mg PO DAILY valacyclovir 2,000 mg (2 x 1 gram) PO Q12H Tobacco use date assessed: 11/02/23 Dental Screening Dental Screen Date: 11/02/23 Did you have a dental visit in the last 12 months?: Yes Did you have a dental problem in the last 6 months where you did not have access to dental care?: No Was dental information given to patient?: Patient has dentist HPI Rescheduled from 10/03/23 HPI Details 58-year-old male with hyperlipidemia, cu rrently on lovastatin 40 mg daily, here today for his follow-up. He has been compliant with taking his medications, admits to not getting much exercise lately. He has been feeling well with no complaints at present time. [facility] Medical History Vitamin D deficiency History of COVID-19 COVID-19 virus infection Impaired fasting glucose Annual visit for general adult medical examination with abnormal findings GERD (gastroesophageal reflux disease) Dyslipidemia (high LDL; low HDL) Recurrent cold sores Surgical History Hx of colonoscopy No pertinent past surgical history Family History Father HTN (hypertension) CVD (cardiovascular disease) Myocardial infarction Mother Diabetes mellitus Lung cancer Stroke Daughter No problems noted. Sister No problems noted. Sister No problems noted. Sister No problems noted. Social History Housing: House Alcohol intake: never Patient Tobacco Use Status: Never used Tobacco e-Cigarette/Vaping Use: Never Used Second Hand Smoke Exposure: No service: No Current occupational status: employed Cognitive needs: No Hearing needs: No Vision needs: Yes Questionnaire PHQ-9 Over the last 2 weeks, how often have you been bothered by any of the following problems? 1. Little interest or pleasure in doing things: not at all 2. Feeling down, depressed, or hopeless: not at all 3. Trouble falling or staying asleep, or sleeping too much: not at all 4. Feeling tired or having little energy: not at all 5. Poor appetite or overeating: not at all 6. Feeling bad about yourself - or that you are a failure or have let yourself or your family down: not at all 7. Trouble concentrating on things, such as reading the newspaper or watching television: not at all 8. Moving or speaking so slowly that other people could have noticed. Or the opposite - being so fidgety or restless that you have been moving around a lot more than usual: not at all 9. Thoughts that you would be better off or of hurting yourself in some wa y: not at all Total score: 0 Depression Screening Interpretation: Negative Depression Screening Done: Yes 82332 - PHQ-9 Billing: Yes Source: Developed by Drs. Jamshid Sue, Zhanna Ferrer, James Toledo and colleagues, with an educational agapito from [employer]. Thrive Questionnaire Date Thrive assessed: 11/02/23 I am a: Patient What is your living situation today?: I have a steady place to live Within the past 12 months, did the food you bought not last and you didn't have the money to get more?: Never true Within the past 12 months, did you worry whether your food would run out before you got money to buy more?: Never true Do you have trouble paying for medicines?: No Do you have trouble getting transportation to medical appointments?: No Do you have trouble paying your heating and electricity bill?: No Do you have trouble taking care of your child, family member or friend?: No Do you have trouble with day-to-day activities such as bathing, preparing meals, shopping, managing finances, etc.?: No Are you currently unemployed and looking for a job?: No Are you interested in more education?: No THRIVE Score: 0 AUDIT C Alcohol Use Questionnaire (AUDIT-C) 1. How often do you have a drink containing alcohol?: Never Total Score: 0 ROBEL-7 AMB Questionnaire ROBEL-7 Date ROBEL - 7 assessed: 11/02/23 Feeling nervous, anxious, or on edge: 0 = Not at all Not being able to stop or control worryin = Not at all Worrying too much about different things: 0 = Not at all Trouble relaxin = Not at all Being so restless that it is hard to sit still: 0 = Not at all Becoming easily annoyed or irritable: 0 = Not at all Feeling afraid as if something awful might happen: 0 = Not at all Total ROBEL-7 score (0-4 normal; 5-9 mild; 10-14 moderate; 15-21 severe): 0 Source: Developed by Drs. Jamshid Sue, Zhanna Ferrer, James Toledo and colleagues, with an educational agapito from [employer]. ROBEL-7 Assessment Billing ROBEL-7 Assessment Tool: ROBEL-7 Assessment 04370 Review of Systems Const Denies body aches, Denies fatigue, Denies headache(s) and Denies weakness Eyes Denies change in vision ENT Denies dizziness, Denies headache(s) and Denies nasal congestion Card Denies chest pain, Denies lightheadedness, Denies palpitations and Denies dyspnea Resp Denies chest congestion, Denies cough, Denies dyspnea and Denies wheezing GI Denies abdominal pain, Denies change in bowel habits and Denies heartburn Denies hematuria, Denies difficulty urinating, Denies dysuria, Denies urinary frequency and Denies urinary urgency Musc Reports no additional complaints Neuro Denies dizziness, Denies headache(s) and Denies weakness Endo Denies fatigue, Denies polydipsia, Denies polyuria and Denies palpitations Aller/Immun Denies seasonal rhinorrhea and Denies wheezing Physical exam (Primary Care) Vital Signs: Last Vital Signs Pulse 64 11/02/23 11:37 BP 110/62 11/02/23 11:37 Pulse Ox 94 11/02/23 11:37 Oxygen Delivery Method Room Air 11/02/23 11:37 BMI result Body Mass Index 27.1 Tobacco/Smoking Status: Tobacco use Status Tobacco use date assessed 11/02/23 11/02/23 11:42 Patient Tobacco Use Status Never used Tobacco 11/02/23 11:36 e-Cigarette/Vaping Use Never Used 11/02/23 11:36 PHQ-9: PHQ-9 Score PHQ-9: Total score 0 11/02/23 12:05 Depression Screening Interpretation: Negative Thrive Assessment: Date of Thrive Assessment Date Thrive assessed 11/02/23 11/02/23 11:48 Const General: comfortable, no acute distress and alert Orientation/consciousness: patient oriented x3 HENMT Mouth: moist mucous membranes Neck Neck: Yes full ROM, Yes no lymphadenopathy and Yes supple Resp Effort & Inspection: normal respiratory effort and able to speak in complete sentences Auscultation: clear to auscultation bilaterally Cardio Rate: regular rate Rhythm: regular rhythm Heart sounds: S1 normal heart sound present and S2 normal heart sound present GI Palpation (GI): Soft to palpation, nontender, no guarding and no masses Auscultation: normal bowel sounds Male General Exam: Yes normal external exam Neuro General: patient oriented x3, gait normal, tone normal, moves all extremities, Normal light touch and pain sensation and no focal motor deficits Extrem General: Yes full ROM, Yes no joint enlargement, Yes no clubbing, cyanosis or edema and Yes no calf tenderness Results AMB Hemoglobin A1c AMB Hemoglobin A1c 5.6 % Last Edit by Nadeen Malagon CMA on 11/02/23 11:55 Results Reviewed Results Reviewed: Laboratory Last Values Hgb A1c (Clinic) 5.6 % (4.0-6.0) 11/02/23 11:48 Laboratory Tests 09/15/22 09/30/23 09:13 08:06 Fasting Glucose 110 H Hemoglobin A1c % 5.5 AST 35 ALT 42 H Triglycerides 96 Cholesterol 181 LDL Cholesterol, Calc 113 H HDL Cholesterol 49 Assessment and Plan Assessment & Plan (1) Impaired fasting glucose: Code(s): R73.01 - Impaired fasting glucose Plan: Previous fasting glucose levels in the past were elevated above 100 mg/dL, in the prediabetic range. Hemoglobin A1c however is normal at 5.6%. . Impaired glucose metabolism increases the risk for developing diabetes mellitus type 2, as well as heart attack and stroke later on. Lifestyle changes at just weight loss, healthy eating habits, and regular exercise are important, and can prevent the progression to diabetes (2) Dyslipidemia (high LDL; low HDL): Code(s): E78.5 - Hyperlipidemia, unspecified Plan: Reviewed recent fasting lipid profile with patient with levels within normal limit . Continue lovastatin 40 mg once a day at bedtime , in addition to adherence to low-cholesterol diet and regular exercise, at least 30 minutes 3 to 4 times a week. Advised patient to make healthy food choices, eat more fruits, vegetables, whole grains, wild caught fish and low-fat dairy. Limit amount of meat and fried or fatty food products, as well as processed foods and fast foods. Follow-up scheduled with repeat fasting lipid panel in 6 months. Orders: Orders AMB Hemoglobin A1c 11/02/23 R73.01 - Impaired fasting glucose Coding Level of Care Code Est Pt Level 4 (44377) Complex EM visit Add On G2211 Diagnoses Impaired fasting glucose R73.01 Dyslipidemia (high LDL; low HDL) E78.5 Additional Codes ROBEL-7 Assessment Billing - ROBEL-7 Assessment Tool: ROBEL-7 Assessment 89194 ([id number])
[2023-11-02 11:37] VITALS: BP 110/62; PULSE 64; O2SAT 94; BMI 27.1
== END 2023-11-02 12:51 | disposition home or self-care (01) ==
PROVIDERS: PCP Internal Medicine; Visit Provider Internal Medicine
DX: R73.01 Impaired fasting glucose (principal)
CPT/HCPCS: 83036; 99214; G2211

== ENCOUNTER 2024-06-20 10:59 | Outpatient (AMB) | payer OTHER, SELFPAY ==
[2024-06-20 11:03] VITALS: BP 112/70; PULSE 66; O2SAT 97; BMI 27.1
--- NOTE | 2024-06-20 11:03 | A.OFFPC_ITS ---
Vital Signs 06/20/24 11:03 Height 6 ft Weight 200 lb BMI 27.1 BP 112/70 Blood Pressure Location Lt brachial Position Sitting Pulse 66 Pulse Source Pulse Oximeter Pulse Oximetry (%) 97 Oxygen Delivery Method Room Air Intake Visit Reasons: Annual PE Intake Note: pt is here for PE Clinical Account Manager Required: No Allergies hydromorphone [Dilaudid] Allergy (Mild, Verified 06/20/24 12:25) throat closed/swelling Medication List - Last Reconciled 06/20/24 by Hanh Rodríguez MD lansoprazole 15 mg PO DAILY lovastatin 40 mg PO DAILY valacyclovir 2,000 mg (2 x 1 gram) PO Q12H Tobacco use date assessed: 06/20/24 Dental Screening Dental Screen Date: 06/20/24 Did you have a dental visit in the last 12 months?: Yes Did you have a dental problem in the last 6 months where you did not have access to dental care?: No Was dental information given to patient?: Patient has dentist HPI Annual PE HPI Details 58-year-old Male, here today for physica l exam. He has hyperlipidemia currently stable controlled lovastatin 40 mg daily. Has heartburn, takes lansoprazole as needed which has been helping. He is up-to-date with his screening colonoscopy done in 2017, with normal results, due again in 2027. Complains of decreased hearing in both ears [facility] Medical History Impacted cerumen of both ears Vitamin D deficiency History of COVID-19 COVID-19 virus infection Impaired fasting glucose Annual visit for general adult medical examination with abnormal findings GERD (gastroesophageal reflux disease) Dyslipidemia (high LDL; low HDL) Recurrent cold sores Surgical History Hx of colonoscopy No pertinent past surgical history Family History Father HTN (hypertension) CVD (cardiovascular disease) Myocardial infarction Mother Diabetes mellitus Lung cancer Stroke Daughter No problems noted. Sister No problems noted. Sister No problems noted. Sister No problems noted. Social History Housing: House Alcohol intake: never Patient Tobacco Use Status: Never used Tobacco e-Cigarette/Vaping Use: Never Used Second Hand Smoke Exposure: No service: No Current occupational status: employed Cognitive needs: No Hearing needs: No Vision needs: Yes Questionnaire PHQ-9 Over the last 2 weeks, how often have you been bothered by any of the following problems? 1. Little interest or pleasure in doing things: not at all 2. Feeling down, depressed, or hopeless: not at all 3. Trouble falling or staying asleep, or sleeping too much: not at all 4. Feeling tired or having little energy: not at all 5. Poor appetite or overeating: not at all 6. Feeling bad about yourself - or that you are a failure or have let yourself or your family down: not at all 7. Trouble concentrating on things, such as reading the newspaper or watching television: not at all 8. Moving or speaking so slowly that other people could have noticed. Or the opposite - being so fidgety or restless that you have been moving around a lot more than usual: not at all 9. Thoughts that you would be better off or of hurting yourself in some way: not at all Total score: 0 Depression Screening Interpretation: Negative Depression Screening Done: Yes 67580 - PHQ-9 Billing: Yes Source: Developed by Drs. Jamshid Sue, Zhanna Ferrer, James Toledo and colleagues, with an educational agapito from [employer]. Thrive Questionnaire Date Thrive assessed: 06/20/24 I am a: Patient What is your living situation today?: I have a steady place to live Within the past 12 months, did the food you bought not last and you didn't have the money to get more?: I choose not to answer this question Within the past 12 months, did you worry whether your food would run out before you got money to buy more?: I choose not to answer this question Do you have trouble paying for medicines?: I choose not to answer this question Do you have trouble getting transportation to medical appointments?: No Do you have trouble paying your heating and electricity bill?: I choose not to answer this question Do you have trouble taking care of your child, family member or friend?: No Do you have trouble with day-to-day activities such as bathing, preparing meals, shopping, managing finances, etc.?: No Are you currently unemployed and looking for a job?: No Are you interested in more education?: No Please select the resources that you would like help with: None Currently or been in a relationship where the following occur: No concerns reported THRIVE Score: 0 AUDIT C Alcohol Use Questionnaire (AUDIT-C) 1. How often do you have a drink containing alcohol?: Monthly or less 2. How many drinks containing alcohol do you have on a typical day when you are drinking?: 1 or 2 3. How often do you have six or more drinks on one occasion?: Never Total Score: 1 Score Reviewed/Action Taken: Yes ROBEL-7 AMB Questionnaire ROBEL-7 Date ROBEL - 7 assessed: 06/20/24 Feeling nervous, anxious, or on edge: 0 = Not at all Not being able to stop or control worryin = Not at all Worrying too much about different things: 0 = Not at all Trouble relaxin = Not at all Being so restless that it is hard to sit still: 0 = Not at all Becoming easily annoyed or irritable: 0 = Not at all Feeling afraid as if something awful might happen: 0 = Not at all Total ROBEL-7 score (0-4 normal; 5-9 mild; 10-14 moderate; 15-21 severe): 0 Source: Developed by Drs. Jamshid Sue, Zhanna Ferrer, James Toledo and colleagues, with an educational agapito from [employer]. ROBEL-7 Assessment Billing ROBEL-7 Assessment Tool: ROBEL-7 Assessment 59304 Review of Systems Const Denies body aches, Denies fatigue, Denies headache(s) and Denies weakness Eyes Details: sees Dr Richards Reports requires corrective lenses ENT Reports as per HPI, Denies dizziness and Denies headache(s) Card Denies chest pain, Denies lightheadedness, Denies palpitations and Denies dyspnea Resp Denies chest congestion, Denies cough, Denies dyspnea and Denies wheezing GI Denies abdominal pain, Denies change in bowel habits and Denies heartburn Denies hematuria, Denies difficulty urinating, Denies dysuria, Denies urinary frequency and Denies urinary urgency Musc Reports no additional complaints Skin/Breast Denies breast pain, Denies lesions and Denies rash Neuro Denies dizziness, Denies headache(s) and Denies weakness Psych Reports no additional complaints Endo Denies fatigue, Denies polydipsia, Denies polyuria and Denies palpitations Richie/Lymph Reports no additional complaints Aller/Immun Denies seasonal rhinorrhea and Denies wheezing Physical exam (Primary Care) Vital Signs: Last Vital Signs Pulse 66 06/20/24 11:03 BP 112/70 06/20/24 11:03 Pulse Ox 97 06/20/24 11:03 Oxygen Delivery Method Room Air 06/20/24 11:03 BMI result Body Mass Index 27.1 Tobacco/Smoking Status: Tobacco use Status Tobacco use date assessed 06/20/24 06/20/24 11:07 Patient Tobacco Use Status Never used Tobacco 06/20/24 11:07 e-Cigarette/Vaping Use Never Used 06/20/24 11:07 PHQ-9: PHQ-9 Score PHQ-9: Total score 0 06/20/24 11:53 Depression Screening Interpretation: Negative Thrive Assessment: Date of Thrive Assessment Date Thrive assessed 06/20/24 06/20/24 11:07 Currently or been in a relationship where the following occur: No concerns reported Const General: comfortable, no acute distress and alert Orientation/consciousness: patient oriented x3 HENMT Other: Impacted dry cerumen noted bilaterally once cerumen removed, noticed a translucent foreign body in right ear canal Ears: external ears normal, TM's normal bilaterally and no periauricular adenopathy Mouth: moist mucous membranes Eyes General: appearance normal, both eyes and all related structures Neck Neck: Yes full ROM, Yes no lymphadenopathy and Yes supple Chest Chest palpation & inspection: normal inspection of the chest Resp Effort & Inspection: normal respiratory effort and able to speak in complete sentences Auscultation: clear to auscultation bilaterally Cardio Rate: regular rate Rhythm: regular rhythm Heart sounds: S1 normal heart sound present and S2 normal heart sound present GI Palpation (GI): Soft to palpation, nontender, no guarding and no masses Auscultation: normal bowel sounds General: Yes no CVA tenderness Male General Exam: Yes normal external exam Back/Spine/Pelvis Back: no CVA tenderness and No back tenderness Skin General skin exam: no rashes or lesions noted Neuro General: patient oriented x3, gait normal, tone normal, moves all extremities, Normal light touch and pain sensation and no focal motor deficits Extrem General: Yes full ROM, Yes no joint enlargement, Yes no clubbing, cyanosis or edema and Yes no calf tenderness Psych Appearance: grossly normal and well kempt Mental Status: mental status grossly normal Speech and movement: Normal speech and movement present Affect: normal affect Coding Level of Care Code Est Pt Prev Care 40-64y(71349) Diagnoses Annual visit for general adult medical examination with abnormal findings Z00.01 Dyslipidemia (high LDL; low HDL) E78.5 Foreign body in ear T16.9XXA Impaired fasting glucose R73.01 GERD (gastroesophageal reflux disease) K21.9 Impacted cerumen of both ears H61.23 Additional Codes ROBEL-7 Assessment Billing - ROBEL-7 Assessment Tool: ROBEL-7 Assessment 52339 ([id number]) PHQ-9 - 72917 - PHQ-9 Billing: Yes ([id number]) Assessment & Plan Assessment & Plan (1) Annual visit for general adult medical examination with abnormal findings: Code(s): Z00.01 - Encounter for general adult medical examination with abnormal findings Category: Medical Plan: Fasting labs ordered. Up-to-date with his eye exam and dental prophylaxis up-to-date with his vaccinations, flu vaccine given today reminded to get his shingles vaccination , but does not want to get further COVID vaccines. Up-to-date with his colon cancer screening, due again in 2027 (2) Dyslipidemia (high LDL; low HDL): Code(s): E78.5 - Hyperlipidemia, unspecified Category: Medical Plan: Continue with lovastatin 40 mg daily, fasting labs ordered to check lipids and liver enzymes reinforced importance of following a low-cholesterol diet and continue regular exercise (3) Foreign body in ear: Comment: right ear canal Code(s): T16.9XXA - Foreign body in ear, unspecified ear, initial encounter Category: Medical Plan: Noted translucent foreign body in right ear canal, referred to ENT for further management (4) Impaired fasting glucose: Code(s): R73.01 - Impaired fasting glucose Category: Medical Plan: Your previous fasting blood sugars were elevated above 100 mg/dL. Fasting glucose levels ordered today. Impaired glucose metabolism increases the risk for developing diabetes mellitus type 2, as well as heart attack and stroke later on. Lifestyle changes that promotes weight loss, healthy eating habits, and regular exercise are important, and can prevent the progression to diabetes (5) GERD (gastroesophageal reflux disease): Code(s): K21.9 - Gastro-esophageal reflux disease without esophagitis Category: Medical Plan: Takes lansoprazole only as needed (6) Impacted cerumen of both ears: Code(s): H61.23 - Impacted cerumen, bilateral Category: Medical Plan: Cerumen removed through use of lighted ear curette and ear irrigation patient tolerated procedure well Orders: Orders Alanine Aminotransferase Today E78.5 - Hyperlipidemia, unspecified, K21.9 - Gastro-esophageal reflux disease without esophagitis, R73.01 - Impaired fasting glucose, Z00.01 - Encounter for general adult medical examination with abnormal findings Lipid Panel Today E78.5 - Hyperlipidemia, unspecified, K21.9 - Gastro- esophageal reflux disease without esophagitis, R73.01 - Impaired fasting glucose, Z00.01 - Encounter for general adult medical examination with abnormal findings Influenza [id number] Immunization Today Z23 - Encounter for immunization Basic Metabolic Panel Fasting Today E78.5 - Hyperlipidemia, unspecified, K21.9 - Gastro-esophageal reflux disease without esophagitis, R73.01 - Impaired fasting glucose, Z00.01 - Encounter for general adult medical examination with abnormal findings Aspartate Amino Transferase Today E78.5 - Hyperlipidemia, unspecified, K21.9 - Gastro-esophageal reflux disease without esophagitis, R73.01 - Impaired fasting glucose, Z00.01 - Encounter for general adult medical examination with abnormal findings Referrals Ear/Nose/Throat Referral T16.9XXA - Foreign body in ear, unspecified ear, initial encounter Medications: New Fluarix Triv [id number] (PF) (flu vacc [id number] 6mos up(PF)) 0.5 mL IM ONCE 0.5 mL 0RF NS Z23 - Encounter for immunization
== END 2024-06-20 12:41 | disposition home or self-care (01) ==
PROVIDERS: PCP Internal Medicine; Visit Provider Internal Medicine
DX: Z00.01 Encounter for general adult medical examination with abnormal findings (principal); E78.5 Hyperlipidemia, unspecified; T16.9XXA Foreign body in ear, unspecified ear, initial encounter; R73.01 Impaired fasting glucose; K21.9 Gastro-esophageal reflux disease without esophagitis; H61.23 Impacted cerumen, bilateral

== ENCOUNTER → 2024-06-20 10:59 | Outpatient (BNVA) | payer OTHER, SELFPAY | PROVIDERS: PCP Internal Medicine; Visit Provider Internal Medicine | DX: Z00.01 Encounter for general adult medical examination with abnormal findings (principal); H61.23 Impacted cerumen, bilateral; E78.5 Hyperlipidemia, unspecified; T16.1XXA Foreign body in right ear, initial encounter; R73.01 Impaired fasting glucose; K21.9 Gastro-esophageal reflux disease without esophagitis; W44.9XXA Unspecified foreign body entering into or through a natural orifice, initial encounter; Y93.9 Activity, unspecified; Y92.9 Unspecified place or not applicable; Y99.9 Unspecified external cause status | CPT/HCPCS: 69210; 96127 ==

== ENCOUNTER 2024-07-17 09:34 | Outpatient (AMB) | payer OTHER, SELFPAY ==
[2024-07-17 10:14] VITALS: BP 110/80; PULSE 74; TEMP 36.7; O2SAT 98
--- NOTE | 2024-07-17 10:14 | AM.OFFWIN_ITS ---
Intake Vital Signs 3 07/17/24 10:14 Weight 208 lb BP 110/80 Blood Pressure Location Rt brachial Position Sitting Pulse 74 Pulse Source Pulse Oximeter Temp 98.0 F Temp Source Oral Pulse Oximetry (%) 98 Oxygen Delivery Method Room Air Intake Visit Reasons: EP Pain in rt lower abdomen Intake Note: Patient here for right lower abdominal pain that has been present for a couple of days. 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 - Right lower quadrant pressure noted, p ersistent for 3-4 days, associated with certain postures like sitting or lying on the right side. - Occasional past diagnostic imaging bernardino wed fatty liver and distended gallbladder, both deemed non-pathological at the time. - Noteworthy is the history of winter-re lated weight gain, which may have some association with current symptoms. - Increased urination frequency is noted more at night, not previously experienced. - Occupationally specific factors (gun s ight usage) possibly contributing to the muscular strain were considered. Plan Right lower abdominal discomfort and increased urinary frequency were considered. Instructions were provided to obtain a urine analysis to rule out infection or abnormalities. Suspected musculoskeletal strain due to occupational physical demands, since abdominal exam is benign. symptomatic management shall include the use of acetaminophen. Continuous monitoring of symptom progression was advised. No indications for immediate intervention were evident. Coordination with the primary care provider was discussed for ongoing management and evaluation, ensuring comprehensive care. Patient Instructions - Obtain the urine test as directed. - Monitor any changes or worsening in ab dominal discomfort. - Use acetaminophen for pain relief as n eeded. - Maintain awareness of body positioning during daily activities to reduce discomfort. - Follow up with your primary care docto r as previously scheduled or if symptoms significantly worsen. Review of Systems - Gastrointestinal: Reports right lower abdominal discomfort, denies nausea or vomiting. - Genitourinary: Reports increased frequ ency of urination, especially nocturnally, denies dysuria. - Musculoskeletal: Denies back pain curr ently; reports symptoms consistent with possible musculoskeletal strain affecting abdominal area. Constitutional: No fever no chills Respiratory: no Cough, no shortness a breath Cardiovascular: no palpitations, no chest pains [facility] Medical History Impacted cerumen of both ears Vitamin D deficiency History of COVID-19 COVID-19 virus infection Impaired fasting glucose Annual visit for general adult medical examination with abnormal findings GERD (gastroesophageal reflux disease) Dyslipidemia (high LDL; low HDL) Recurrent cold sores Surgical History Hx of colonoscopy No pertinent past surgical history Family History Father HTN (hypertension) CVD (cardiovascular disease) Myocardial infarction Mother Diabetes mellitus Lung cancer Stroke Daughter No problems noted. Sister No problems noted. Sister No problems noted. Sister No problems noted. Social History Housing: House Alcohol intake: never Patient Tobacco Use Status: Never used Tobacco e-Cigarette/Vaping Use: Never Used Second Hand Smoke Exposure: No service: No Current occupational status: employed Cognitive needs: No Hearing needs: No Vision needs: Yes Physical Exam Vital Signs: Last Vital Signs Temp 98.0 F 07/17/24 10:14 Pulse 74 07/17/24 10:14 BP 110/80 07/17/24 10:14 Pulse Ox 98 07/17/24 10:14 Oxygen Delivery Method Room Air 07/17/24 10:14 Const General: no acute distress Orientation/consciousness: patient oriented x3 Eyes General: appearance normal, both eyes and all related structures Resp Effort & Inspection: normal respiratory effort and able to speak in complete sentences GI Other: Abdominal exam is benign Abdomen image: 2 1. 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 - Right lower quadrant pressure noted, persistent for 3-4 days, associated with certain postures like sitting or lying on the right side. - Occasional past diagnostic imaging showed fatty liver and distended gallbladder, both deemed non-pathological at the time. - Noteworthy is the history of winter-related weight gain, which may have some association with current symptoms. - Increased urination frequency is noted more at night, not previously experienced. - Occupationally specific factors (gun sight usage) possibly contributing to the muscular strain were considered. Plan Right lower abdominal discomfort and increased urinary frequency were considered. Instructions were provided to obtain a urine analysis to rule out infection or abnormalities. Suspected musculoskeletal strain due to occupational physical demands, since abdominal exam is benign. symptomatic management shall include the use of acetaminophen. Continuous monitoring of symptom progression was advised. No indications for immediate intervention were evident. Coordination with the primary care provider was discussed for ongoing management and evaluation, ensuring comprehensive care. Patient Instructions - Obtain the urine test as directed. - Monitor any changes or worsening in abdominal discomfort. - Use acetaminophen for pain relief as needed. - Maintain awareness of body positioning during daily activities to reduce discomfort. - Follow up with your primary care doctor as previously scheduled or if symptoms significantly worsen. Orders: Orders 2 UA CC w/rflx Micro + Cult Today R35.0 - Frequency of micturition Coding Level of Care Code Est Pt Level 4 (86124) Diagnoses Frequency of micturition R35.0 Abdominal discomfort in right flank R10.9
== END 2024-07-17 10:41 | disposition home or self-care (01) ==
PROVIDERS: PCP Internal Medicine; Visit Provider Internal Medicine
DX: R35.0 Frequency of micturition (principal); R10.9 Unspecified abdominal pain

== ENCOUNTER 2024-07-17 09:34 | Outpatient (REF) | payer OTHER, SELFPAY ==
[2024-07-17 13:07] LABS: Appearance Urine Clear; Color Urine Yellow; Glucose Urine UA Negative (Negative); Leukocyte Esterase Urine Negative (Negative); Nitrite Urine Negative (Negative); PH 5.5 (5.0-9.0); Urine Blood Negative (Negative); Urine Ketones Negative (Negative); Urine Protein Negative (Neg-Trace)
== END 2024-07-17 09:35 | disposition home or self-care (01) ==
LOC: HO.HMGCLDS 09:34
PROVIDERS: PCP Internal Medicine; Visit Provider Internal Medicine
DX: R10.31 Right lower quadrant pain (principal); R35.0 Frequency of micturition
CPT/HCPCS: 81003

== ENCOUNTER 2024-10-23 09:08 | Outpatient (REF) | payer OTHER, SELFPAY ==
[2024-10-23 10:46] LABS: Alanine Aminotransferase 45 U/L (0-40); Anion Gap 13 (12-20); Aspartate Amino Transferase 39 U/L (5-37); Blood Urea Nitrogen 13 mg/dL (9-16); Calcium 8.8 mg/dL (8.4-10.2); Carbon Dioxide 24 mmol/L (22-29); Chloride 105 mmol/L (96-108); Cholesterol 166 mg/dL (<200); Estimated Glomerular Filt Rate > 60; Glucose Fasting 111 mg/dL (60-99); HDL Cholesterol 50 mg/dL (>40); LDL Cholesterol Calculated 96 mg/dL (<100); Potassium 4.1 mmol/L (3.3-5.1); Sodium 138 mmol/L (135-145); Triglycerides 100 mg/dL (<150)
== END 2024-10-23 09:09 | disposition home or self-care (01) ==
LOC: HO.HMGCLDS 09:08
PROVIDERS: PCP Internal Medicine; Visit Provider Internal Medicine
DX: Z00.01 Encounter for general adult medical examination with abnormal findings (principal); R73.01 Impaired fasting glucose; K21.9 Gastro-esophageal reflux disease without esophagitis; E78.5 Hyperlipidemia, unspecified
CPT/HCPCS: 36415; 80048; 80061; 84450; 84460

== ENCOUNTER 2024-10-29 09:08 | Outpatient (AMB) | payer OTHER, SELFPAY ==
--- NOTE | 2024-10-29 09:32 | A.OFFPC_ITS ---
Vital Signs 10/29/24 09:34 Height 6 ft Weight 206 lb 2 oz BMI 28.0 BP 98/78 Blood Pressure Location Lt brachial Position Sitting Respiration 16 Pulse 79 Pulse Source Pulse Oximeter Temp 98.3 F Temp Source Oral Pulse Oximetry (%) 96 Oxygen Delivery Method Room Air Intake Visit Reasons: pain R side Intake Note: Marlon is here today to f/u pain on his right side flank Allergies hydromorphone [Dilaudid] Allergy (Mild, Verified 10/29/24 09:50) throat closed/swelling Medication List - Last Reconciled 10/29/24 by Hanh Rodríguez MD lansoprazole 15 mg PO DAILY lorazepam 0.5 mg PO DAILY PRN lovastatin 40 mg PO DAILY valacyclovir 2,000 mg (2 x 1 gram) PO Q12H Tobacco use date assessed: 10/29/24 Dental Screening Dental Screen Date: 10/29/24 Did you have a dental visit in the last 12 months?: Yes Did you have a dental problem in the last 6 months where you did not have access to dental care?: No Was dental information given to patient?: Patient has dentist HPI pain R side HPI Details - The patient is a 59-year-old male pres enting today to discuss presence of an incidental finding of a nodule in right middle lobe of the lung, seen on a CT of the abdomen and pelvis 2 months ago of the ER, where he was diagnosed with possible colitis which improved with antibiotics. -patient states that he was previously b eing seen by Dr. Pattie Negron for constant monitoring of lung nodule, patient could not remember which side it wa s. He denies any cough for chest pain, no shortness of breath, lightheadedness - Hepatitis B immunity status is being r eevaluated following recent exposure, necessitating potential booster vaccination copy of lab report requested. [facility] Medical History (Updated 10/29/24 @ 10:03 by Hanh Rodríguez MD) Pulmonary nodule less than 1 cm in diameter with moderate to high risk for malignant neoplasm Impacted cerumen of both ears Vitamin D deficiency History of COVID-19 COVID-19 virus infection Impaired fasting glucose Annual visit for general adult medical examination with abnormal findings GERD (gastroesophageal reflux disease) Dyslipidemia (high LDL; low HDL) Recurrent cold sores Surgical History Hx of colonoscopy No pertinent past surgical history Family History Father HTN (hypertension) CVD (cardiovascular disease) Myocardial infarction Mother Diabetes mellitus Lung cancer Stroke Daughter No problems noted. Sister No problems noted. Sister No problems noted. Sister No problems noted. Social History Housing: House Alcohol intake: never Patient Tobacco Use Status: Never used Tobacco e-Cigarette/Vaping Use: Never Used Second Hand Smoke Exposure: No service: No Current occupational status: employed Cognitive needs: No Hearing needs: No Vision needs: Yes Questionnaire Thrive Questionnaire Date Thrive assessed: 06/14/24 I am a: Patient What is your living situation today?: I have a steady place to live Within the past 12 months, did the food you bought not last and you didn't have the money to get more?: I choose not to answer this question Within the past 12 months, did you worry whether your food would run out before you got money to buy more?: I choose not to answer this question Do you have trouble paying for medicines?: I choose not to answer this question Do you have trouble getting transportation to medical appointments?: No Do you have trouble paying your heating and electricity bill?: I choose not to answer this question Do you have trouble taking care of your child, family member or friend?: No Do you have trouble with day-to-day activities such as bathing, preparing meals, shopping, managing finances, etc.?: No Are you currently unemployed and looking for a job?: No Are you interested in more education?: No Please select the resources that you would like help with: None Currently or been in a relationship where the following occur: No concerns reported THRIVE Score: 0 ROBEL-7 AMB Questionnaire ROBEL-7 Date ROBEL - 7 assessed: 06/20/24 Source: Developed by Drs. Jamshid Sue, Zhanna Ferrer, James Toledo and colleagues, with an educational agapito from [employer] Review of Systems Const All systems reviewed & are unremarkable except as noted in HPI and below Physical exam (Primary Care) Vital Signs: Last Vital Signs Temp 98.3 F 10/29/24 09:34 Pulse 79 10/29/24 09:34 Resp 16 10/29/24 09:34 BP 98/78 10/29/24 09:34 Pulse Ox 96 10/29/24 09:34 Oxygen Delivery Method Room Air 10/29/24 09:34 BMI result Body Mass Index 28.0 Tobacco/Smoking Status: Tobacco use Status Tobacco use date assessed 10/29/24 10/29/24 09:40 Patient Tobacco Use Status Never used Tobacco 10/29/24 09:40 e-Cigarette/Vaping Use Never Used 10/29/24 09:40 Thrive Assessment: Date of Thrive Assessment Date Thrive assessed 06/14/24 10/29/24 09:40 Currently or been in a relationship where the following occur: No concerns reported Const General: no acute distress and alert Orientation/consciousness: patient oriented x3 HENMT Ears: external ears normal, TM's normal bilaterally and no periauricular adenopathy Mouth: moist mucous membranes Eyes General: appearance normal, both eyes and all related structures Neck Neck: Yes full ROM, Yes no lymphadenopathy and Yes supple Chest Chest palpation & inspection: normal inspection of the chest Resp Effort & Inspection: normal respiratory effort and able to speak in complete sentences Auscultation: clear to auscultation bilaterally Cardio Rate: regular rate Rhythm: regular rhythm Heart sounds: S1 normal heart sound present and S2 normal heart sound present GI Palpation (GI): Soft to palpation, nontender, no guarding and no masses Auscultation: normal bowel sounds Back/Spine/Pelvis Back: No back tenderness Neuro General: patient oriented x3, gait normal, tone normal, moves all extremities, Normal light touch and pain sensation and no focal motor deficits Extrem General: Yes full ROM, Yes no joint enlargement, Yes no clubbing, cyanosis or edema and Yes no calf tenderness Coding Level of Care Code Est Pt Level 3 (54311) Diagnoses Pulmonary nodule less than 1 cm in diameter with moderate to high risk for malignant neoplasm R91.1; Z91.89 Assessment & Plan Assessment & Plan (1) Pulmonary nodule less than 1 cm in diameter with moderate to high risk for malignant neoplasm: Code(s): R91.1 - Solitary pulmonary nodule; Z91.89 - Other specified personal risk factors, not elsewhere classified Category: Medical Plan: Reviewed recent CAT scan of abdomen pelvis done well he was seen at the ER 2 months ago. Patient currently without any respiratory complaints. Unable to find old CT scan of the chest which showed the nodule that patient mentioned. Patient requested a referral back to see Dr. Herbert for further evaluation management Orders: Referrals Thoracic/General Surgery Referral R91.1 - Solitary pulmonary nodule, Z91.89 - Other specified personal risk factors, not elsewhere classified
[2024-10-29 09:34] VITALS: BP 98/78; PULSE 79; RESP 16; TEMP 36.8; O2SAT 96; BMI 28.0
--- OUTSIDE RECORDS SUMMARY | 2024-10-29 09:41 | XMS_ITS | Patient Health Record ---
[facility] Organization [facility] Address [address] [place] [address] Care Team Providers Care Control Operator Name Role Phone Anne WHALEY, Hanh Lee Primary Care Provider Un available Azra, Jeremy Unavailable [phone] Allergies Allergen (clinical drug ingredient) Drug/Non Drug Allergy documented on EMR Reaction Allergy Type Onset Date Status hydromorphone Dilaudid Unknown Drug Allergy Act dion Reason For Referral No Information Medications Medication SIG (Take, Route, Frequency, Duration) Notes Start Date End Date Status Omeprazole 20 MG Orally Not -Taking Ciclopirox Olamine 0.77 % 1 application to affected area Externally to feet Twice a day for 30 days Not-Taking Lovastatin 20 MG Orally Act dion Social History Tobacco Use: Social History Observation Description Date Details (start date - stop date) Never Smoker NA - NA Tobacco Use/Smoking Question Answer Notes Are you a: nonsmoker Additional Findings: Tobacco Non-User Current no n-smoker Alcohol Screen Question Answer Notes Did you have a drink contain ing alcohol in the past year? Yes How often did you have a dri nk containing alcohol in the past year? Monthly or less (1 point) Points 1 Interpretation Negative Tobacco use other than smoking: Question Answer Notes Are you an other tobacco user? No Plan Of Treatment No Information Insurance Providers Payer Name Payer Address Payer Phone Subscriber Number Group Number Insured Name Patient Relationship to Insured Coverage Start Date Coverage End Date [facility] [address] [facility] [address] [phone] [id number] Gaviota Marlon Self - patient is the insured Medical (General) History Medical History History ICD Code CAD (Cholesterol) Reflux ( GERD) Warts Surgical History Surgery Date(Month/Year) hernia 1976
== END 2024-10-29 10:49 | disposition home or self-care (01) ==
LOC: HO.HMCC 09:08
PROVIDERS: PCP Internal Medicine; Visit Provider Internal Medicine
DX: R91.1 Solitary pulmonary nodule (principal); Z91.89 Other specified personal risk factors, not elsewhere classified

== ENCOUNTER → 2024-10-29 09:08 | Outpatient (BNVA) | payer OTHER, SELFPAY | PROVIDERS: PCP Internal Medicine; Visit Provider Internal Medicine ==

== ENCOUNTER 2025-01-03 08:47 | Outpatient (REF) | payer OTHER, SELFPAY ==
--- OUTSIDE RECORDS SUMMARY | 2025-01-03 09:07 | XMS_ITS | Clinical Summary ---
Author Organization [facility] [address] [facility] Address [address] [place] [address] Phone Care Team Providers Care Purchasing Officer Name Role Phone Hanh Rodríguez MD Primary Care Provider Allergies Active Allergy Reactions Criticality Noted Date Comments Hydromorphone 12/06/2024 Medications lovastatin (MEVACOR) 40 mg tablet Take 1 tablet (40 mg total) by mouth 1 (one) time each day. 10/09/2024 Active omeprazole (PRILOSEC) 20 mg tablet,delayed release (DR/EC) Take 1 tablet (20 mg total) by mouth daily. Active LORazepam (Ativan) 0.5 mg tablet Take 1 tablet (0.5 mg total) by mouth 1 (one) time for 1 dose. Max Daily Amount: 0.5 mg 1 tablet 12/06/2024 Active Active Problems Problem Noted Date Diagnosed Date Pulmonary nodule 12/06/2024 Encounters Date Type Department Care Team Description 12/06/2024 2:30 PM EDT Consult Thoracic Surgery - [address] [place] [address] Pattie Herbert MD Pulmonary nodule (Primary Dx) from Last 3 Months Surgical History Surgery Date Site/Laterality Comments OTHER SURGICAL HISTORY Hernia repair Medical History Medical History Date Comments Hyperlipidemia Family History Medical History Relation Name Comments Cancer Father Hypertension Father Cancer Mother Diabetes type I Mother Relation Name Status Comments Father Mother Social History Tobacco Use Types Packs/Day Years Used Date Smoking Tobacco: Never Assessed Passive Smoke Exposure: Never Smokeless Tobacco: Never Tobacco Cessation:Counseling Given: Not Answered Sex and Gender Information Value Date Recorded Sex Assigned at Not on file Legal Sex Male 11:12 AM EDT Gender Identity Not on file Sexual Orientation Not on file Obstetrics History Last Filed Vital Signs Vital Sign Reading Time Taken Comments Blood Pressure 124/80 12/06/2024 2:58 PM EDT Pulse 74 12/06/2024 2:58 PM EDT Temperature 36.7 C (98.1 F) 12/06/2024 2:58 PM EDT Respiratory Rate 18 12/06/2024 2:58 PM EDT Oxygen Saturation 97% 12/06/2024 2:58 PM EDT Inhaled Oxygen Concentration - - Weight 92 kg (202 lb 14.4 oz) 12/06/2024 2:58 PM EDT Height 182.9 cm (6') 12/06/2024 2:58 PM EDT Body Mass Index 27.52 12/06/2024 2:58 PM EDT Plan of Treatment Upcoming Encounters Date Type Department Care Team (Late st Contact Info) Description 01/11/2025 11:00 AM EDT Appointment [facility] CT Scan [address] [place] [id number] 01/18/2025 11:45 AM EDT Office Visit Thoracic Surgery - [place] [address] [facility] [address] [place] [phone] Pattie Herbert MD [address] [address] Health Maintenance Due Date Last Done Comments Hepatitis B Vaccines (1 of 3 - 19+ 3-dose series) 1985 Pneumococcal Vaccine: 50+ Ye ars (1 of 1 - PCV) 2016 Zoster Vaccines (1 of 2) 2016 COVID-19 Vaccine (1 - 2023-2 5 season) 2024 Depression Screening 05/30/2024 Cholesterol Screening (Lipid Panel) 11/21/2024 Colorectal Cancer Screening: Colonoscopy 11/21/2024 HIV Screening 11/21/2024 Hepatitis C Screening 11/21/2024 Social Influencers of Health Screening 11/21/2024 Influenza Vaccine (#1) 2025 DTaP,Tdap,and Td Vaccines (2 - Td or Tdap) 04/02/2030 04/02/2020 HIB Vaccines Aged Out No longer eligi ble based on patient's age to complete this topic HPV Vaccines Aged Out No longer eligi ble based on patient's age to complete this topic Hepatitis A Vaccines Aged Out No long er eligible based on patient's age to complete this topic IPV Vaccines Aged Out No longer eligi ble based on patient's age to complete this topic MMR Vaccines Aged Out No longer eligi ble based on patient's age to complete this topic Meningococcal ACWY Vaccine Aged Out N o longer eligible based on patient's age to complete this topic Meningococcal B Vaccine Aged Out No l onger eligible based on patient's age to complete this topic RSV Immunization Patients Un triston 20 months Aged Out No longer eligible b ased on patient's age to complete this topic Varicella Vaccines Aged Out No longer eligible based on patient's age to complete this topic [place] [address] [facility] [place] [employer] Care Teams Purchasing Officer Relationship Specialty Start Date End Date Hanh Rodríguez MD [address] [place] [address] PCP - General Internal Medicine 11/20/24
--- OUTSIDE RECORDS SUMMARY | 2025-01-03 09:07 | XMS_ITS | Patient Health Record ---
Author Organization [facility] Address [address] [facility] [place] [address] Care Team Providers Care Glove Turner Name Role Phone Anne WHALEY, Hanh Lee Primary Care Provider Un available Azra, Jeremy Unavailable [phone] Allergies Allergen (clinical drug ingredient) Drug/Non Drug Allergy documented on EMR Reaction Allergy Type Onset Date Status hydromorphone Dilaudid Unknown Drug Allergy Act dion Reason For Referral No Information Medications Medication SIG (Take, Route, Frequency, Duration) Notes Start Date End Date Status Omeprazole 20 MG Orally Not -Taking Ciclopirox Olamine 0.77 % 1 application to affected area Externally to feet Twice a day; Duration: 30 days Not-Taking Lovastatin 20 MG Orally [...] Insured Coverage Start Date Coverage End Date [facility] [address] [place] [address] [phone] [id number] Marlon Meek Self - patient is the insured Medical (General) History Medical History History ICD Code CAD (Cholesterol) Reflux ( GERD) Warts Surgical History Surgery Date(Month/Year) hernia 1976
--- OUTSIDE RECORDS SUMMARY | 2025-01-03 09:07 | XMS_ITS | Clinical Summary ---
Author Organization [facility] Address [address] [place] [phone] Phone Care Team Providers Care Model Dresser Name Role Phone Hanh Rodríguez MD Primary Care Provider Allergies Active Allergy Reactions Criticality Noted Date Comments Hydromorphone Shortness Of Breath High 04/10/2020 Medications omeprazole (PRILOSEC) 20 mg TbEC Take 20 mg by mouth daily before breakfast. Active lovastatin (MEVACOR) 20 MG tablet Take 20 mg by mouth nightly at bedtime. Active amoxicillin-cla vulanate (AUGMENTIN) 250-125 mg per tablet Take 1 tablet by mouth 3 (three) times a day. Active triamcinolone acetonide 0.1 % ointment Apply topically 2 (two) times a day. Active Social History Tobacco Use Types Packs/Day Years Used Date Smoking Tobacco: Never Smokeless Tobacco: Never Alcohol Use Standard Drinks/Week Comments Yes 1 (1 standard drink = 0.6 oz pure alcohol) a couple of half glasses with food Education Answer Date Recorded Are you interested in more education? Not on kimberly e 09/24/2022 Are you concerned about learning? Not on file 09/24/2022 No 09/24/2022 No 09/24/2022 Digital Access Answer Date Recorded No 10/23/2022 No 10/23/2022 Reliable internet access at home? Not on file 10/23/2022 Device with a working camera? Not on file Intimate Partner Violence Answer Date R ecorded Are you denied basic needs s uch as food, clothing, or medical care? No 08/09/2024 In the past 12 months have y ou been in a relationship with a person who hurts, threatens, or tries to control you? No 08/09/2024 Are you denied basic needs s uch as food, clothing, or medical care? No 08/09/2024 In the past 12 months have y ou been in a relationship with a person who hurts, threatens, or tries to control you? No 08/09/2024 Sex and Gender Information Value Date Recorded Sex Assigned at Male 08/09/2024 5:23 PM EDT Legal Sex Male 1:39 PM EST Gender Identity Male 08/09/2024 5:23 PM EDT Sexual Orientation Not on file Last Filed Vital Signs Vital Sign Reading Time Taken Comments Blood Pressure 121/77 08/09/2024 11:26 PM EDT Pulse 68 08/09/2024 11:26 PM EDT Temperature 36.3 C (97.3 F) 08/09/2024 11:26 PM EDT Respiratory Rate 16 08/09/2024 11:26 PM EDT Oxygen Saturation 97% 08/09/2024 11:26 PM EDT Inhaled Oxygen Concentration - - Weight 94.9 kg (209 lb 4.8 oz) 08/09/2024 5:21 P M EDT Height 182.9 cm (6') 08/09/2024 5:21 PM EDT Body Mass Index 28.39 08/09/2024 5:21 PM EDT Plan of Treatment Health Maintenance Due Date Last Done Comments LIPID PANEL 1966 DEPRESSION SCREENING 1978 HEPATITIS C SCREENING 1984 HIV ONE-TIME SCREENING (18-6 5 YEARS) 1984 COLOGUARD 08/25/2011 COLONOSCOPY 08/25/2011 COLORECTAL CANCER SCREENING 08/25/2011 FIT TEST 08/25/2011 FOBT 08/25/2011 SIGMOIDOSCOPY 08/25/2011 VIRTUAL COLONOSCOPY 08/25/2011 PNEUMOCOCCAL VACCINES (50+ years) (1 of 1 - PCV) 2016 ZOSTER VACCINES (1 of 2) 2016 COVID-19 VACCINE (2023-2 5 season) 2024 07/07/2020, 06/10/2020 SCREENING FOR DIABETES 08/10/2027 08/09/2024 Adult Td,Tdap Booster 04/02/2030 04/02/2020 , 11/08/2016, 10/26/2012 SMOKING STATUS SCREENING (On ce After 26 Yrs) Completed 04/29/2020 HEPATITIS A VACCINES Aged Out No long er eligible based on patient's age to complete this topic HIB VACCINES Aged Out No longer eligi ble based on patient's age to complete this topic MENINGOCOCCAL VACCINES (ACWY) Aged Out No longer eligible based on patient's age to complete this topic MENINGOCOCCAL VACCINES (B) Aged Out N o longer eligible based on patient's age to complete this topic Medical Devices Not on file Insurance [facility] Member Subscriber Plan / Payer (Ef fective 2018-Present) Name:Marlon Meek Relation to Subscriber:Self Name:Marlon Meek Payer ID:Not on file Type:HMO Address: [place] [id number] [facility] [place] [address] [facility] Care Teams Model Dresser Relationship Specialty Start Date End Date Hanh Rodríguez MD [address] [place] [address] PCP - General Internal Medicine 04/10/20 Additional Source Comments The information contained in this document represents components of the legal health record. It is not the complete legal health record.[facility]
--- OUTSIDE RECORDS SUMMARY | 2025-01-03 09:08 | XMS_ITS | Patient Health Record ---
Author Organization [facility] Address [address] [place] [address] Care Team Providers Care Patient Care Nursing Assistant Name Role Phone Anne WHALEY, Hanh Primary Care Provider Jamshid Yan [phone] Allergies Allergen (clinical drug ingredient) Drug/Non Drug Allergy documented on EMR Reaction Allergy Type Onset Date Status hydromorphone Dilaudid Unknown Drug Allergy Act dion Reason For Referral No Information Medications Medication SIG (Take, Route, Frequency, Duration) Notes Start Date End Date Status Omeprazole 20 MG 1 capsule Orally Onc e a day for 30 day(s) Started 04/2018 Active Lovastatin 20 MG 1 tablet with a meal Orally Once a day Active Problems Problem Type SNOMED Code ICD Code Onset Dates Problem Status W/U Status Risk Notes Problem 03341522 Epigastric abdom inal pain (R10.13) Active confirmed Problem 627981983 Encounter for screening for malignant neoplasm of colon (Z12.11) Active confirmed Problem 093655575 Nausea (R11.0) Active confirmed Problem [id number] Gastroesophageal reflux disease, esophagitis presence not specified (K21.9) Active confirmed Plan Of Treatment Future Test Test Name Order Date COLONOSCOPY 08/18/2017 Insurance Providers Payer Name Payer Address Payer Phone Subscriber Number Group Number Insured Name Patient Relationship to Insured Coverage Start Date Coverage End Date [facility] [address] [facility] [phone] [id number] ERIKA JOYCE Self - patient is the insured Medical (General) History Medical History History ICD Code Denies VA,DM,CVA,Lung disease,renal dise ase Herniated discs in neck and lower back Hyperlipidemia GERD Screening colonoscopy in 09/2017--hyperpl astic polyp only Surgical History Surgery Date(Month/Year) Hernia repair-right inguinal 1978
[2025-01-03 10:29] LABS: Hemoglobin A1C 155.2490 umol/L; Total Hemoglobin (HGBA1C) 4019.0999 umol/L
[2025-01-03 10:48] LABS: Alanine Aminotransferase 35 U/L (0-40); Aspartate Amino Transferase 45 U/L (5-37); Cholesterol 165 mg/dL (<200); HDL Cholesterol 43 mg/dL (>40); Triglycerides 92 mg/dL (<150)
== END 2025-01-03 08:48 | disposition home or self-care (01) ==
LOC: HO.HMGCLDS 08:47
PROVIDERS: PCP Internal Medicine; Visit Provider Internal Medicine
DX: R73.01 Impaired fasting glucose (principal); E78.5 Hyperlipidemia, unspecified
CPT/HCPCS: 36415; 80061; 83036; 84450; 84460

== ENCOUNTER 2025-01-07 13:02 | Outpatient (AMB) | payer OTHER, SELFPAY ==
--- OUTSIDE RECORDS SUMMARY | 2025-01-07 13:11 | XMS_ITS | Patient Health Record ---
Author Organization [facility] Address [address] [facility] [place] [address] Care Team Providers Care Band Head Saw Operator Name Role Phone Anne WHALEY, Hanh Lee Primary Care Provider Un available Azra, Jeremy Unavailable [phone] Allergies Allergen (clinical drug ingredient) Drug/Non Drug [...] Insured Coverage Start Date Coverage End Date [facility] [address] [place] [address] [phone] [id number] Marlon Meek Self - patient is the insured Medical (General) History Medical History History ICD Code CAD (Cholesterol) Reflux ( GERD) Warts Surgical History Surgery Date(Month/Year) hernia 1976
--- OUTSIDE RECORDS SUMMARY | 2025-01-07 13:11 | XMS_ITS | Clinical Summary ---
Author Organization [facility] [address] [facility] Address [address] [place] [address] Phone Care Team Providers Care Pharmaceutical Detailer Name Role Phone Hanh Rodríguez MD Primary Care Provider [phone] Allergies Active Allergy Reactions Criticality Noted Date [...] 2:30 PM EDT Consult Thoracic Surgery - [address] [place] [address] Pattie Herbert MD Pulmonary nodule [...] Value Date Recorded Sex Assigned at Male 01/04/2025 10:35 PM EDT Legal Sex Male 11:12 AM EDT Gender [...] Info) Description 01/11/2025 11:[address] Scan [address] [place] [id number] 01/18/2025 11:45 AM EDT Office Visit Thoracic Surgery - [place] [address] [facility] [address] [place] [phone] Pattie Herbert MD [address] [address] Health Maintenance Due Date Last Done Comments Hepatitis B Vaccines (1 of 3 - 19+ 3-dose series) 1985 Pneumococcal Vaccine: 50+ Ye ars (1 of 1 - PCV) 2016 Zoster Vaccines (1 of 2) 2016 COVID-19 Vaccine ( - 2023-2 5 season) 2024 Depression Screening [...] patient's age to complete this topic Insurance [facility] [employer] Care Teams Pharmaceutical Detailer Relationship Specialty Start Date End Date Hanh Rodríguez MD [address] [place] [address] PCP - General Internal Medicine 11/20/24
--- OUTSIDE RECORDS SUMMARY | 2025-01-07 13:11 | XMS_ITS | Clinical Summary ---
Author Organization [facility] Address [address] [place] [address] Phone Care Team Providers Care Electric Motor Mechanic Name Role Phone Hanh Rodríguez MD Primary [...] you interested in more education? Not on kimebrly e 09/24/2022 Are you concerned about learning? [...] topic Medical Devices Not on file [facility] Member Subscriber Plan / Payer (Ef fective 2018-Present) Name:Marlon Meek Relation to Subscriber:Self Name:Marlon Meek Payer ID:Not on file Type:HMO Address: [place] [id number] [facility] [place] [id number] [facility] Care Teams Electric Motor Mechanic Relationship Specialty Start Date End Date Hanh Rodríguez MD [address] [place] [address] PCP - General Internal Medicine 04/10/20 Additional Source Comments The information contained in this document represents components of the legal health record. It is not the complete legal health record.[facility]
[2025-01-07 13:13] VITALS: BP 120/84; PULSE 71; RESP 16; TEMP 36.5; O2SAT 97; BMI 27.4
--- NOTE | 2025-01-07 13:13 | MHC.PC.OV ---
Vital Signs 01/07/25 13:13 Height 6 ft Weight 202 lb BMI 27.4 BP 120/84 Blood Pressure Location Rt brachial Position Sitting Respiration 16 Pulse 71 Pulse Source Pulse Oximeter Temp 97.7 F Temp Source Oral Pulse Oximetry (%) 97 Oxygen Delivery Method Room Air Intake Visit Reasons: 6mo. f/u Intake Note: Pt is here today for his 6mo. f/u Allergies hydromorphone (Dilaudid) Allergy (Mild, Verified 01/07/25 13:32) throat closed/swelling Medication List - Last Reconciled 01/07/25 by Hanh Rodríguez MD lansoprazole 15 mg PO DAILY lorazepam 0.5 mg PO DAILY PRN lovastatin 40 mg PO DAILY valacyclovir 2,000 mg (2 x 1 gram) PO Q12H Tobacco use date assessed: 01/07/25 Dental Screening Dental Screen Date: 01/07/25 Did you have a dental visit in the last 12 months?: Yes Did you have a dental problem in the last 6 months where you did not have access to dental care?: Yes Was dental information given to patient?: Patient has dentist HPI 6mo. f/u HPI Details - The patient is a 59-year-old male presenting where his six-month follow-up -he has a nodule identified in 2021, which is being monitored for changes. Scheduled by Pulmonary for CT of chest - Liver enzyme monitoring: Liver enzymes were slightly elevated but not significantly, requiring ongoing observation. - Cholesterol management: The patient's cholesterol levels have increased slightly, with LDL cholesterol slightly above 100 mg/dL - Colonoscopy follow-up: A colonoscopy in 2017 revealed a benign polyp, with a recommendation for a repeat in 2027. - Preventative care: Will treat with his vaccination except for the shingles vaccine, recommended to get it -recently seen at the ER last night, accidentally cut his left ring finger on broken glass and received stitches at the ER at [facility]. [facility] Medical History (Updated 01/07/25 @ 13:53 by Hanh Rodríguez MD) Pulmonary nodule less than 1 cm in diameter with moderate to high risk for malignant neoplasm Impacted cerumen of both ears Vitamin D deficiency History of COVID-19 COVID-19 virus infection Impaired fasting glucose Annual visit for general adult medical examination with abnormal findings GERD (gastroesophageal reflux disease) Dyslipidemia (high LDL; low HDL) Recurrent cold sores Surgical History (Updated 01/07/25 @ 13:53 by Hanh Rodríguez MD) History of repair of laceration Hx of colonoscopy No pertinent past surgical history Family History Father HTN (hypertension) CVD (cardiovascular disease) Myocardial infarction Mother Diabetes mellitus Lung cancer Stroke Daughter No problems noted. Sister No problems noted. Sister No problems noted. Sister No problems noted. Social History Housing: House Alcohol intake: never Patient Tobacco Use Status: Never used Tobacco e-Cigarette/Vaping Use: Never Used Second Hand Smoke Exposure: No service: No Current occupational status: employed Cognitive needs: No Hearing needs: No Vision needs: Yes Questionnaire Thrive Questionnaire Date Thrive assessed: 06/14/24 I am a: Patient What is your living situation today?: I have a steady place to live Within the past 12 months, did the food you bought not last and you didn't have the money to get more?: I choose not to answer this question Within the past 12 months, did you worry whether your food would run out before you got money to buy more?: I choose not to answer this question Do you have trouble paying for medicines?: I choose not to answer this question Do you have trouble getting transportation to medical appointments?: No Do you have trouble paying your heating and electricity bill?: I choose not to answer this question Do you have trouble taking care of your child, family member or friend?: No Do you have trouble with day-to-day activities such as bathing, preparing meals, shopping, managing finances, etc.?: No Are you currently unemployed and looking for a job?: No Are you interested in more education?: No Please select the resources that you would like help with: None Currently or been in a relationship where the following occur: No concerns reported THRIVE Score: 0 ROBEL-7 AMB Questionnaire ROBEL-7 Date ROBEL - 7 assessed: 06/20/24 Source: Developed by Drs. Jamshid Sue, Zhanna Ferrer, James Toledo and colleagues, with an educational agapito from [employer]. Review of Systems Const Denies body aches, Denies fatigue and Denies weakness Eyes Details: sees Dr Richards Reports requires corrective lenses ENT Reports no additional complaints Card Denies chest pain, Denies lightheadedness, Denies palpitations and Denies dyspnea Resp Denies chest congestion, Denies cough, Denies dyspnea and Denies wheezing GI Denies abdominal pain, Denies change in bowel habits and Denies heartburn Denies hematuria, Denies difficulty urinating, Denies dysuria, Denies urinary frequency and Denies urinary urgency Musc Reports no additional complaints Skin/Breast Reports as per HPI and Denies rash Neuro Denies weakness Psych Reports no additional complaints Endo Denies fatigue, Denies polydipsia, Denies polyuria and Denies palpitations Richie/Lymph Reports no additional complaints Aller/Immun Denies seasonal rhinorrhea and Denies wheezing Physical exam (Primary Care) Vital Signs: Last Vital Signs Temp 97.7 F 01/07/25 13:13 Pulse 71 01/07/25 13:13 Resp 16 01/07/25 13:13 BP 120/84 01/07/25 13:13 Pulse Ox 97 01/07/25 13:13 Oxygen Delivery Method Room Air 01/07/25 13:13 BMI result Body Mass Index 27.4 Tobacco/Smoking Status: Tobacco use Status Tobacco use date assessed 01/07/25 01/07/25 13:21 Patient Tobacco Use Status Never used Tobacco 01/07/25 13:21 e-Cigarette/Vaping Use Never Used 01/07/25 13:21 Thrive Assessment: Date of Thrive Assessment Date Thrive assessed 06/14/24 01/07/25 13:21 Currently or been in a relationship where the following occur: No concerns reported Const General: no acute distress and alert Orientation/consciousness: patient oriented x3 HENMT Ears: external ears normal, TM's normal bilaterally and no periauricular adenopathy Mouth: moist mucous membranes Eyes General: appearance normal, both eyes and all related structures Neck Neck: Yes full ROM, Yes no lymphadenopathy and Yes supple Chest Chest palpation & inspection: normal inspection of the chest Resp Effort & Inspection: normal respiratory effort and able to speak in complete sentences Auscultation: clear to auscultation bilaterally Cardio Rate: regular rate Rhythm: regular rhythm Heart sounds: S1 normal heart sound present and S2 normal heart sound present GI Palpation (GI): Soft to palpation, nontender, no guarding and no masses Auscultation: normal bowel sounds General: Yes no CVA tenderness Back/Spine/Pelvis Back: no CVA tenderness and No back tenderness Skin Other: Wound with intact stitches noted on lateral aspect of left index finger, with no dehiscence, no active drainage, no surrounding erythema or swelling noted Neuro General: patient oriented x3, gait normal, tone normal, moves all extremities, Normal light touch and pain sensation and no focal motor deficits Extrem General: Yes full ROM, Yes no joint enlargement, Yes no clubbing, cyanosis or edema and Yes no calf tenderness Results Reviewed Results Reviewed: Laboratory Tests 09/15/22 01/03/25 09:13 08:55 Estimat Average Glucose 111 117 Hemoglobin A1c % 5.7 Name: Marlon Meek Age/Sex: 59/M : 1965 Unit#: [id number] Attend Dr: Hanh Rodríguez MD Re01/03/25 Status: DEP REF Location: [facility] Disch: SPEC : [id number] MICHAEL: 01/03/25 STATUS: COMP REQ : [id number] RECD: 01/03/25-[address]: Hanh Rodríguez MD COMP: 01/03/25 ENTERED: 01/03/25-[address] [facility] [address]: ORDERED: AST, ALT, Lipid Panel Test Result Flag Reference AST (GOT) 45 H 5-37 U/L ALT (GPT) 35 0-40 U/L Triglyceride 92 <150 mg/dL Desirable Triglyceride: less than 150 mg/dL Borderline High Triglyceride 150-199 mg/dL High Triglyceride: 200-499 mg/dL Very High Triglyceride: greater than or equal to 5OO mg/dL Cholesterol 165 <200 mg/dL Desirable Cholesterol: less than 200 mg/dL Borderline High Cholesterol: 200-239 mg/dL High Cholesterol: greater than 239 mg/dL LDL Calculated 104 H <100 mg/dL Desirable LDL: less than 100 mg/dL Near Optimal/Above Optimal LDL: 110-129 mg/dL Borderline High LDL: 130-159 mg/dL High LDL: 160-189 mg/dL Very High LDL: greater than or equal to 190 mg/dL HDL 43 >40 mg/dL Desirable HDL: greater than 40 mg/dL Note: This HDL assay may give artificially low results in patients with liver disease. Coding Level of Care Code Est Pt Level 4 (28795) Diagnoses Dyslipidemia (high LDL; low HDL) E78.5 Impaired fasting glucose R73.01 GERD (gastroesophageal reflux disease) K21.9 Assessment & Plan Assessment & Plan (1) Dyslipidemia (high LDL; low HDL): Code(s): E78.5 - Hyperlipidemia, unspecified Category: Medical Plan: Reviewed recent fasting lab results with patient. Continue with lovastatin 40 mg at bedtime in addition to adherence to healthy eating habits and regular exercise. (2) Impaired fasting glucose: Code(s): R73.01 - Impaired fasting glucose Category: Medical Plan: Your previous fasting blood sugars were elevated above 100 mg/dL. Impaired glucose metabolism increases the risk for developing diabetes mellitus type 2, as well as heart attack and stroke later on. Lifestyle changes that promotes weight loss, healthy eating habits, and regular exercise are important, and can prevent the progression to diabetes (3) GERD (gastroesophageal reflux disease): Code(s): K21.9 - Gastro-esophageal reflux disease without esophagitis Category: Medical Plan: Takes lansoprazole 50 mg daily which has been helping control heartburn symptoms.
== END 2025-01-07 14:06 | disposition home or self-care (01) ==
LOC: HO.HMCC 13:03
PROVIDERS: PCP Internal Medicine; Visit Provider Internal Medicine
DX: E78.5 Hyperlipidemia, unspecified (principal); R73.01 Impaired fasting glucose; K21.9 Gastro-esophageal reflux disease without esophagitis

== ENCOUNTER 2025-01-18 10:34 | Outpatient (AMB) | payer OTHER, SELFPAY ==
--- OUTSIDE RECORDS SUMMARY | 2025-01-18 09:45 | XMS_ITS | Encounter Summary ---
Author Organization [facility] Address [address] [place] [address] Care Team Providers Care Reconciliation Analyst Name Role Phone Hanh Rodríguez MD Primary Care Provider Reason for Visit * Reason Comments Follow-up Chest CT Encounter Details Date Type Department Care Team (Late st Contact Info) Description 01/18/2025 9:45 AM EDT Office Visit Thoracic Surgery - [place] [address] [facility] [address] [place] [address] Pattie Herbert MD [address] [facility] [address] [facility] [address] [place] [address] Pulmonary nodule (Primary Dx) Social History Tobacco Use Types Packs/Day Years Used Date Smoking Tobacco: Never Passive Smoke Exposure: Never Smokeless Tobacco: Never Tobacco Cessation:Counseling Given: Not Answered Sex and Gender Information Value Date Recorded Sex Assigned at Male 01/04/2025 10:35 PM EDT Legal Sex Male 11:12 AM EDT Gender Identity Not on file Sexual Orientation Not on file documented as of this encounter Last Filed Vital Signs Vital Sign Reading Time Taken Comments Blood Pressure 103/77 01/18/2025 9:46 AM EDT Pulse 76 01/18/2025 9:46 AM EDT Temperature 36.8 C (98.2 F) 01/18/2025 9:46 AM EDT Respiratory Rate 18 01/18/2025 9:46 AM EDT Oxygen Saturation 97% 01/18/2025 9:46 AM EDT Inhaled Oxygen Concentration - - Weight 90.5 kg (199 lb 8 oz) 01/18/2025 9:46 AM EDT Height 182.9 cm (6') 01/18/2025 9:46 AM EDT Body Mass Index 27.06 01/18/2025 9:46 AM EDT documented in this encounter Plan of Treatment Not on file documented as of this encounter Visit Diagnoses Diagnosis Pulmonary nodule- Primary Other diseases of lung, not elsewhere classified documented in this encounter Care Teams Reconciliation Analyst Relationship Specialty Start Date End Date Hanh Rodríguez MD [address] [place] [address] PCP - General Internal Medicine 11/20/24 documented as of this encounter
[2025-01-18 10:37] VITALS: BP 104/80; PULSE 89; TEMP 36.6; O2SAT 96; BMI 27.1
--- NOTE | 2025-01-18 10:37 | AM.OFFWIN_ITS ---
Intake Vital Signs 01/18/25 10:37 Height 6 ft Weight 200 lb BMI 27.1 BP 104/80 Blood Pressure Location Lt brachial Position Sitting Pulse 89 Pulse Source Pulse Oximeter Temp 97.9 F Temp Source Oral Pulse Oximetry (%) 96 Oxygen Delivery Method Room Air Intake Visit Reasons: EP-rt arm pain Intake Note: pt presents with right elbow to wrist for 4 days Patient Tobacco Use Status: Never used Tobacco Allergies hydromorphone (Dilaudid) Allergy (Mild, Verified 01/18/25 10:44) throat closed/swelling Do you need a note to return to daycare/school/sports/work: Yes HPI EP-rt arm pain HPI Details This is a 59-year-old male patient who presents to the walk-in clinic today with right wrist pain. No prior injury or trauma. He states that this has been intermittently flaring up over the last several months. Typically, he experiences a sharp pain and locking sensation on his right lateral wrist -ulnar side. He concurrently has right elbow pain during these instances, in addition to some tingling in his right middle finger. Historically, these episodes have lasted only several minutes, before resolving and ?releasing the locking sensation in his wrist. This episode however has lasted several days. He is wearing a CTS brace for this which is somewhat helpful. 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 He has tried applying ice and a Tens machine. He has not had this evaluated previosuly. PCP is Dr. Rodríguez. [facility] Medical History Pulmonary nodule less than 1 cm in diameter with moderate to high risk for malignant neoplasm Impacted cerumen of both ears Vitamin D deficiency History of COVID-19 COVID-19 virus infection Impaired fasting glucose Annual visit for general adult medical examination with abnormal findings GERD (gastroesophageal reflux disease) Dyslipidemia (high LDL; low HDL) Recurrent cold sores Surgical History History of repair of laceration Hx of colonoscopy No pertinent past surgical history Family History Father HTN (hypertension) CVD (cardiovascular disease) Myocardial infarction Mother Diabetes mellitus Lung cancer Stroke Daughter No problems noted. Sister No problems noted. Sister No problems noted. Sister No problems noted. Social History Housing: House Alcohol intake: never Patient Tobacco Use Status: Never used Tobacco e-Cigarette/Vaping Use: Never Used Second Hand Smoke Exposure: No service: No Current occupational status: employed Cognitive needs: No Hearing needs: No Vision needs: Yes Review of Systems Const All systems reviewed & are unremarkable except as noted in HPI and below Physical Exam Vital Signs: Last Vital Signs Temp 97.9 F 01/18/25 10:37 Pulse 89 01/18/25 10:37 BP 104/80 01/18/25 10:37 Pulse Ox 96 01/18/25 10:37 Oxygen Delivery Method Room Air 01/18/25 10:37 BMI result Body Mass Index 27.1 Const General: cooperative, healthy appearing and no acute distress Limitations: no limitations Resp Effort & Inspection: normal respiratory effort Skin General skin exam: no rashes or lesions noted Extrem Right upper extremity: wrist Details: normal to inspection, tenderness Location: of the distal ulna and abnormal ROM Details: pain with active ROM during Details: with flexion, with ABduction and with ADduction Psych Appearance: grossly normal Mental Status: mental status grossly normal Speech and movement: Normal speech and movement present Assessment & Plan Assessment & Plan (1) Right wrist pain: Code(s): M25.531 - Pain in right wrist Plan: Wrist XR in the office shows intra-articular ossified body in the ulnar side of the radiocarpal compartment. Discussed this with patient. He can continue to use wrist brace if he finds benefit in this. We also discussed orthopedics referral, which he would like. I have placed referral to [facility] ortho. I have prescribed him a short course of meloxicam to see if this will provide him any relief. We reviewed indications, use, possible side effects of this. He can utilize topical creams/products and Tylenol additionally if needed. Work note provided. I encouraged him to follow up with his PCP Dr. Rodríguez in the meantime if he feels he needs to remain out of work for any longer duration. Patient and present at visit both verbalized understanding and agree to plan discussed today. Orders: Referrals Orthopedics Referral M25.531 - Pain in right wrist Medications: New meloxicam 15 mg PO DAILY 7 tabs 0RF 7 days M25.531 - Pain in right wrist Coding Level of Care Code Est Pt Level 4 (26701) Diagnoses Right wrist pain M25.531
--- OUTSIDE RECORDS SUMMARY | 2025-01-18 10:38 | XMS_ITS | Patient Health Record ---
Author Organization [facility] Address [address] [place] [address] Care Team Providers Care Language Interpreter Name Role Phone Anne WHALEY, Hanh Primary Care Provider Jamshid Yan [phone] Allergies Allergen (clinical drug ingredient) Drug/Non Drug [...] Problem Status W/U Status Risk Notes Problem 08315784 Epigastric abdom inal pain (R10.13) Active confirmed Problem [id number] Encounter for screening for malignant neoplasm of colon (Z12.11) Active confirmed Problem [id number] Nausea (R11.0) Active confirmed Problem [id number] Gastroesophageal reflux disease, esophagitis presence not specified (K21.9) Active confirmed Plan Of Treatment Future Test Test Name Order Date COLONOSCOPY 08/18/2017 Insurance Providers Payer Name Payer Address Payer Phone Subscriber Number Group Number Insured Name Patient Relationship to Insured Coverage Start Date Coverage End Date [facility] [address] [facility] [phone] [id number] ERIKA JOYCE Self - patient is the insured Medical (General) History Medical History History ICD Code Denies [place],DM,CVA,Lung disease,renal dise ase Herniated discs in neck and lower back Hyperlipidemia GERD Screening colonoscopy in 09/2017--hyperpl astic polyp only Surgical History Surgery Date(Month/Year) Hernia repair-right inguinal 1978
--- OUTSIDE RECORDS SUMMARY | 2025-01-18 10:38 | XMS_ITS | Clinical Summary ---
Author Organization [facility] Address [address] [place] [address] Phone Care Team Providers Care Bridge Mechanic Name Role Phone Hanh Rodríguez MD [...] topic Medical Devices Not on file Insurance [facility] Member Subscriber Plan / Payer (Ef fective 2018-Present) Name:Marlon Meek Relation to Subscriber:Self Name:Marlon Meek Payer ID:Not on file Type:HMO Address: [place] [id number] [facility] [place] [address] [facility] Care Teams Bridge Mechanic Relationship Specialty Start Date End Date Hanh Rodríguez MD [address] [place] [address] PCP - General Internal Medicine 04/10/20 Additional Source Comments The information contained in this document represents components of the legal health record. It is not the complete legal health record.[facility]
--- OUTSIDE RECORDS SUMMARY | 2025-01-18 10:38 | XMS_ITS | Patient Health Record ---
Author Organization [facility] Address [address] [place] [address] Care Team Providers Care Farm Management Supervisor Name Role Phone Anne WHALEY, Hanh Lee Primary Care Provider Un available Azra, Jeremy Unavailable [phone] Allergies Allergen (clinical drug ingredient) Drug/Non Drug [...] Insured Coverage Start Date Coverage End Date [facility] [address] [place] [address] [id number] Marlon Meek Self - patient is the insured Medical (General) History Medical History History ICD Code CAD (Cholesterol) Reflux ( GERD) Warts Surgical History Surgery Date(Month/Year) hernia 1976
== END 2025-01-18 11:43 | disposition home or self-care (01) ==
PROVIDERS: PCP Internal Medicine; Visit Provider Nurse Practitioner Family
DX: M25.531 Pain in right wrist (principal)

== ENCOUNTER 2025-01-18 10:34 | Outpatient (REF) | payer OTHER, SELFPAY ==
--- NOTE | ~2025-01-18 | XR_ITS ---
EXAMINATION: XR WRIST, RIGHT CLINICAL INFORMATION: M25.531 - Pain in right wrist COMPARISON: None available. TECHNIQUE: PA, lateral, and oblique views of the right wrist. FINDINGS: Elliptical chronic ossified body is demonstrated in the ulnar side of the radiocarpal compartment. There is neutral ulnar variance. There is no joint diastases. No acute fractures demonstrated. There is faint chondrocalcinosis in the articular cartilage along the lunotriquetral joint XR/XR wrist RT min 3V IMPRESSION: Possible intra-articular ossified body in the ulnar side of the radiocarpal compartment. Chondrocalcinosis. Electronically signed by: Edouard Coe MD 01/18/2025 11:31 AM EDT
== END 2025-01-18 10:35 | disposition home or self-care (01) ==
LOC: HO.HMGCX 10:34
PROVIDERS: PCP Internal Medicine; Visit Provider Nurse Practitioner Family
DX: M25.531 Pain in right wrist (principal)
CPT/HCPCS: 73110

== ENCOUNTER → 2025-01-18 11:13 | Outpatient (BNV) | payer OTHER, SELFPAY | PROVIDERS: PCP Internal Medicine; Visit Provider Radiology Diagnostic Radiology | DX: M11.231 Other chondrocalcinosis, right wrist (principal) | CPT/HCPCS: 73110 ==

== ENCOUNTER 2025-01-30 10:37 | Outpatient (AMB) | payer OTHER, SELFPAY ==
--- NOTE | 2025-01-30 11:20 | A.OFFVIS_ITS ---
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 State he doesn't recall any specific injury but he recall this started and has been on going for the last 2- 3 months, pain starts randomly and feels like his wrist is going to lock up. States he has been out of work for the last 3-4 weeks. Currently states his pain has not improved, states its worse with certain movement or applying pressure while doing a push-up. He wears a wrist brace that helps him relief pain. States he also has elbow pain. Denies numbness, tingling or locking of any finger. Xrays done 01/18/25 at [facility]. Hx of left index finger laceration where he was sutured. States he is doing well. XR/XR wrist RT min 3V IMPRESSION: Possible intra-articular ossified body in the ulnar side of the radiocarpal compartment. Chondrocalcinosis. 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 He complains of several months intermittent pain in his right dorsal ulnar wrist & elbow. He says his wrist feels like it locks for a few minutes. He says usually his wrist frees itself from locking and his pain resolves. His pain is worse when doing activities such as push-ups He says his pain has been present for several months, but worsened on ~01/12/25 and has been more constant. 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 [facility] Medical History Pulmonary nodule less than 1 cm in diameter with moderate to high risk for malignant neoplasm Impacted cerumen of both ears Vitamin D deficiency History of COVID-19 COVID-19 virus infection Impaired fasting glucose Annual visit for general adult medical examination with abnormal findings GERD (gastroesophageal reflux disease) Dyslipidemia (high LDL; low HDL) Recurrent cold sores Surgical History History of repair of laceration Hx of colonoscopy No pertinent past surgical history Family History Father HTN (hypertension) CVD (cardiovascular disease) Myocardial infarction Mother Diabetes mellitus Lung cancer Stroke Daughter No problems noted. Sister No problems noted. Sister No problems noted. Sister No problems noted. 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 Cognitive needs: No Hearing needs: No Vision needs: Yes Review of Systems Const All systems reviewed & are unremarkable except as noted in HPI and below Physical Exam Vital Signs: BMI result Body Mass Index 27.1 Const General: cooperative, healthy appearing and no acute distress Orientation/consciousness: patient oriented x3 HEENT Head: Yes normocephalic and Yes atraumatic Eyes EOM: EOMs intact bilaterally Resp Effort & Inspection: normal respiratory effort and able to speak in complete sentences Cardio Jugular venous distension: no JVD Skin General skin exam: turgor normal Rashes: no rashes Neuro General: patient oriented x3 Extrem Other: Evaluation of Right Upper Extremity: The patient is alert, oriented, and in no acute distress Neuro: Median, Ulnar, Radial nerves motor and sensory intact Vascular: Cap refill brisk ROM: He can make a tight fist with good strength & no pain No locking or catching No pain with wrist pronation When moving into supination, he feels a clicking sensation in the dorsal aspect of the DRUJ I may be able to palpate the loose body in the dorsal aspect of the DRUJ. I can also feel the clicking sensation. DRUJ stable on exam Skin: No lacerations or abrasions. General: No Ecchymosis. No Erythema or evidence of infection. Radiographs: 3 views of the right wrist from 01/18/25 were reviewed by me today in clinic. They show no acute fractures or dislocations. There is a loose body coming off the dorsal ulnar corner of the radius, measuring ~7mm*5mm on the PA view Psych Appearance: grossly normal Affect: normal affect Attitude: cooperative Assessment & Plan Assessment & Plan (1) Right wrist pain: Code(s): M25.531 - Pain in right wrist Category: Medical Plan Assessment & Plan: 1. Right dorsal ulnar wrist pain, more so dorsal to the DRUJ Loose body seen on radiographs Etiology unclear, onset several months ago I educated him about this condition I ordered an MRI to better visualize his wrist I discussed activity modification, he should limit or avoid any heavy lifting or impact activities, or placing his wrist under load while in hyperextension, such as with Push-ups He will work on gentle ROM exercises at home He will continue to wear his velcro wrist splint with daily activities I wrote that he can return to work on light duty with a 10 lb weight limit, and that he is not able to use his weapon. 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 He will follow up when completed for review, 30 minute appointment Scribed for Lilliam Sosa MD by Pete Du, certified medical technician assistant, on 01/30/25 at 11:40 AM, EST. Orders: Orders hand RT wo con Today M25.531 - Pain in right wrist Coding Level of Care Code New Pt Level 4 (28818) Diagnoses Right wrist pain M25.531
[2025-01-30 11:21] VITALS: BMI 27.1
--- OUTSIDE RECORDS SUMMARY | 2025-01-30 12:23 | XMS_ITS | Clinical Summary ---
Author Organization [facility] [address] Address [address] [place] [address] Phone Care Team Providers Care Carbon Furnace Operator Name Role Phone Hanh Rodríguez MD Primary Care Provider [phone] Allergies Active Allergy Reactions Criticality Noted Date [...] Active Problems Problem Noted Date Diagnosed Date Mediastinal mass 01/18/2025 Pulmonary nodule 12/06/2024 Encounters Date Type Department Care Team Description 01/18/2025 9:45 AM EDT Office Visit Thoracic Surgery - [place] [address] [facility] [address] [place] [phone] Pattie Herbert MD Pulmonary nodule (Primary Dx); Mediastinal mass 01/11/2025 10:32 AM EDT - 01/11/2025 11:59 PM EDT Hospital Encounter [facility] CT Scan [address] [place] [phone] Pulmonary nodule Discharge Disposition: Home or Self Care 12/06/2024 2:30 PM EDT Consult Thoracic Surgery - [address] [place] [address] Pattie Herbert MD Pulmonary nodule [...] Mass Index 27.06 01/18/2025 9:46 AM EDT Plan of Treatment Health Maintenance Due Date Last Done Comments Hepatitis B Vaccines (1 of 3 - 19+ 3-dose series) 1985 Pneumococcal Vaccine: 50+ Ye ars (1 of 1 - PCV) 2016 Zoster Vaccines (1 of 2) 2016 Depression Screening 05/30/2024 Cholesterol Screening (Lipid Panel) 11/21/2024 Colorectal Cancer Screening: Colonoscopy 11/21/2024 HIV Screening 11/21/2024 Hepatitis C Screening 11/21/2024 Social Influencers of Health Screening 11/21/2024 COVID-19 Vaccine (1 - 2023-2 5 season) 2025 Influenza Vaccine (#1) 2025 DTaP,Tdap,and Td Vaccines [...] on patient's age to complete this topic Procedures Procedure Name Priority Date/Time Associated Diagnosis Comments CT CHEST WO CONTRAST Routine 01/11/2025 11:05 AM EDT Pulmonary nodule from Last 3 Months Results * CT Chest wo Contrast (01/11/2025 11:05 AM EDT) Anatomical Region Laterality Modality Body Computed Tomogra phy 01/14/2025 3:10 PM EDT Impressions 01/14/2025 3:24 PM EDT Impression: 1. Stable right middle lobe nodule being followed. This nodule has been stable for greater than 3 years, consistent with a benign process. 2. No developing thoracic lymphadenopathy. Telerad NEDA ([id number]) -------- FINAL REPORT -------- Dictated By: Shelly Perea Dictated Date: 01/14/2025 15:10 ET Assigned Physician: Shelly Perea Reviewed and Electronically Signed By: Shelly Perea Signed Date: 01/14/2025 15:24 ET Workstation ID: [id number] Transcribed By: Self Edit Transcribed Date: 01/14/2025 15:10 ET Narrative 01/14/2025 3:24 PM EDT History: Lung nodule, 6 to 8 mm. Comparison: CT abdomen/pelvis 08/09/24 ([place], [place]), CT chest 07/31/21 ([place], [place]) Technique: Helical volumetric imaging of the thorax was performed, using low- dose technique, without IV contrast. DLP: 166.46 mGy/cm [employer] VCT Iterative reconstruction technique Findings: The small solid, noncalcified nodule being followed in the right middle lobe, 2 mm in diameter by my measurement, (image 172 series 4), is unchanged dating back to the [address] [facility] thoracic CT, consistent with a benign process. The trachea and central bronchial tree remain patent. No suspicious developing pulmonary nodule is seen. No pleural or pericardial effusions are seen. The heart remains normal in size. The unopacified great vessels are unremarkable. A stable 2.1 x 1.0 cm triangular area of soft tissue in the anterior mediastinum is unchanged since 2021, possibly thymus. No developing thoracic lymphadenopathy is seen. The thyroid gland is normal in size and without focal nodule. A small portion of the upper abdomen included on the lowest images through the thorax is without significant abnormality. No significant abnormality of the regional skeleton is seen. Procedure Note Shelly Perea MD - 01/14/2025 History: Lung nodule, 6 to 8 mm. Comparison: CT abdomen/pelvis 08/09/24 ([place], [place]), CT chest 07/31/21 ([place], [place]) Technique: Helical volumetric imaging of the thorax was performed, usinglow-dose technique, without IV contrast. DLP: 166.46 mGy/cm [employer] VCT Iterative reconstruction technique Findings: The small solid, noncalcified nodule being followed in the right middlelobe, 2 mm in diameter by my measurement, (image 172 series 4), isunchanged dating back to the 2021 [facility] thoracic CT, consistentwith a benign process. The trachea and central bronchial tree remain patent. No suspiciousdeveloping pulmonary nodule is seen. No pleural or pericardial effusions are seen. The heart remains normal in size. The unopacified great vessels areunremarkable. A stable 2.1 x 1.0 cm triangular area of soft tissue in theanterior mediastinum is unchanged since 2021, possibly thymus. Nodeveloping thoracic lymphadenopathy is seen. The thyroid gland is normal in size and without focal nodule. A small portion of the upper abdomen included on the lowest images throughthe thorax is without significant abnormality. No significant abnormality of the regional skeleton is seen. IMPRESSION: Impression: 1. Stable right middle lobe nodule being followed. This nodule has beenstable for greater than 3 years, consistent with a benign process. 2. No developing thoracic lymphadenopathy. Telerad [place] ([id number]) -------- FINAL REPORT -------- Dictated By: Shelly Perea Dictated Date: 01/14/2025 15:10 ET Assigned Physician: Shelly Perea Reviewed and Electronically Signed By: Shelly Perea Signed Date: 01/14/2025 15:24 ET Workstation ID: [id number] Transcribed By: Self Edit Transcribed Date: 01/14/2025 15:10 ET Pattie Herbert MD IMG CT PROCEDURES Final Result from Last [address] [facility] [employer] Care Teams Carbon Furnace Operator Relationship Specialty Start Date End Date Hanh Rodríguez MD [address] [place] [address] PCP - General Internal Medicine 11/20/24
--- OUTSIDE RECORDS SUMMARY | 2025-01-30 12:23 | XMS_ITS | Encounter Summary ---
Author Organization [facility] Address [address] [place] [address] Phone Care Team Providers Care Interior Wall Assembler Name Role Phone Hanh Rodríguez MD Primary Care Provider Encounter Details Date Type Department Care Team (Late st Contact Info) Description 08/09/2024 Procedure Pass [facility] Ct Scan - [address] [address] Social History Tobacco Use Types Packs/Day Years [...] PM EDT Sexual Orientation Not on file documented as of this encounter Functional Status * Calculated C-SSRS Risk Score (Lifetime/Recent) Answer Date of Assessment Author No Risk Indicated 08/09/2024 5:21 PM EDT Nafisa Villanueva RN * [place] Suicide Severity Rating Scale (Screener/Recent Self-Report) Question Answer Date of Assessment Author 1. Wish to be (Past 1 Month) No 08/09/2024 5:21 PM EDT Nafisa Villanueva RN 2. Non-Specific Active Suici dariela Thoughts (Past 1 Month) No 08/09/2024 5:21 PM EDT Nafisa Villanueva RN 6. Suicidal Behavior (Lifetime) No 5:21 PM EDT Nafisa Villanueva RN documented as of this encounter Plan of Treatment Not on file documented as of this encounter Visit Diagnoses Not on filedocumented in this encounter Care Teams Interior Wall Assembler Relationship Specialty Start Date End Date Hanh Rodríguez MD [address] [place] [address] PCP - General Internal Medicine 04/10/20 documented as of this encounter Additional Source Comments The information contained in this document represents components of the legal health record. It is not the complete legal health record.[facility]
--- OUTSIDE RECORDS SUMMARY | 2025-01-30 12:23 | XMS_ITS | Clinical Summary ---
Author Organization [facility] Address [address] [place] [address] Phone Care Team Providers Care Research Physicist Name Role Phone Hanh Rodríguez MD Primary [...] topic Medical Devices Not on file Insurance [facility] Member Subscriber Plan / Payer (Ef fective 2018-Present) Name:Marlon Meek Relation to Subscriber:Self Name:Marlon Meek Payer ID:Not on file Type:HMO Address: [place] [id number] [facility] [place] [place] [address] [facility] Care Teams Research Physicist Relationship Specialty Start Date End Date Hanh Rodríguez MD [address] [place] [address] PCP - General Internal Medicine 04/10/20 Additional Source Comments The information contained in this document represents components of the legal health record. It is not the complete legal health record.[facility]
--- OUTSIDE RECORDS SUMMARY | 2025-01-30 12:23 | XMS_ITS | Encounter Summary ---
Author Organization [facility] Address [address] [place] [address] Phone Care Team Providers Care Clinical Trials Nurse Name Role Phone Hanh Rodríguez MD Primary Care Provider Encounter Details Date Type Department Care Team (Late st Contact Info) Description 07/02/2020 Ancillary Orders [facility],Outside Imaging [address] [place] [address] System, Provider Not In, [facility] [address] [address] Social History Tobacco Use Types Packs/Day Years Used Date Smoking Tobacco: Never Smokeless Tobacco: Never Alcohol Use Standard Drinks/Week Comments Yes 1 (1 standard drink = 0.6 oz pure alcohol) a couple of half glasses with food Sex and Gender Information Value Date Recorded Sex Assigned at Male 08/09/2024 5:23 PM EDT Legal Sex Male 1:39 PM EST Gender Identity Male 08/09/2024 5:23 PM EDT Sexual Orientation Not on file documented as of this encounter Plan of Treatment Not on file documented as of this encounter Results * XR Upper Extremity Outside (No Interpretation) (04/10/2020 12:00 AM EST) Narrative SYSTEMGENERATED, DOCUMENTATION - 07/02/2020 1:33 PM EST This study is for PACS storage only and not for interpretation. us Provider Not In System PhD IMG OUTSIDE IMAGING W /OUT INTERPRETATION Final Result documented in this encounter Visit Diagnoses Not on filedocumented in this encounter Care Teams Clinical Trials Nurse Relationship Specialty Start Date End Date Hanh Rodríguez MD [facility] [place] [address] PCP - General Internal Medicine 04/10/20 documented as of this encounter Additional Source Comments The information contained in this document represents components of the legal health record. It is not the complete legal health record.[facility]
== END 2025-01-30 12:05 | disposition home or self-care (01) ==
LOC: HO.HOS 10:38
PROVIDERS: PCP Internal Medicine; Visit Provider Orthopaedic Surgery
DX: M25.531 Pain in right wrist (principal)
CPT/HCPCS: 99203

== ENCOUNTER → 2025-02-06 19:44 | Outpatient (BNV) | payer OTHER, SELFPAY | PROVIDERS: PCP Internal Medicine; Visit Provider Radiology Diagnostic Radiology | DX: M25.431 Effusion, right wrist (principal) | CPT/HCPCS: 73221 ==

== ENCOUNTER 2025-02-06 19:45 | Outpatient (REF) | payer OTHER, SELFPAY ==
--- NOTE | ~2025-02-06 | MR_ITS ---
CLINICAL HISTORY: M25.531 - Pain in right wrist --- Additional Notes or Special Instructions: Right dorsal ulnar wrist pain, possibly involving the DRUJ, with a loose MR of the right wrist without contrast. No prior MR. Findings: There is a small distal radial ulnar joint effusion. In the anterior aspect of the joint there is a loose body measuring 6 x 8 x 4 mm. Dorsal to the joint there is a 6 mm ossicle. There is irregularity of the adjacent portion of the distal radius with mild intraosseous cystic change. This is likely the result of prior trauma. The triangular fibrocartilage is intact. There is ill-defined edema of the ulnomeniscal homologue. There is minimal irregularity of the pisiform suspicious for old trauma as well. The scapholunate interval is normal. No evidence of a scapholunate ligament tear. There is a small amount of fluid in the radiocarpal joint. There is mild extensor carpi ulnaris tendinopathy with a possible short-segment longitudinal split. No other significant tendinopathy or tenosynovitis. The carpal tunnel and median nerve are unremarkable. There is mild ill-defined soft tissue edema dorsal to the carpus. There is a mild amount of ill-defined edema involving the distal pronator quadratus. Impression: Small distal radioulnar joint effusion with an 8 mm loose body in the joint. Suspect old trauma of the ulnar aspect of the distal radius as described above. Ill-defined edema of the ulnomeniscal homologue. Suspect old trauma of the pisiform. Small amount of fluid in the radiocarpal joint with mild ill-defined soft tissue edema dorsal to the carpus. Mild extensor carpi ulnaris tendinopathy with a possible short-segment longitudinal split. Mild edema of the pronator quadratus muscle. This document has been electronically signed by: Yves Shaffer MD on 02/07/2025 17:13:58
--- OUTSIDE RECORDS SUMMARY | 2025-02-06 19:53 | XMS_ITS | Encounter Summary ---
Author Organization [facility] Address [address] [place] [address] Phone Care Team Providers Care Access Services Representative Name Role Phone Hanh Rodríguez MD Primary Care Provider Encounter Details Date Type Department Care Team (Late st Contact Info) Description 08/09/2024 Procedure [facility], Ct Scan - [address] [address] Social History Tobacco Use Types Packs/Day Years [...] 5:21 PM EDT Nafisa Villanueva RN * Sophia Suicide Severity Rating Scale (Screener/Recent Self-Report) Question [...] on filedocumented in this encounter Care Teams Access Services Representative Relationship Specialty Start Date End Date Hanh Rodríguez MD [address] [place] [address] PCP - General Internal Medicine 04/10/20 documented as of this encounter Additional Source Comments The information contained in this document represents components of the legal health record. It is not the complete legal health record.[facility]
--- OUTSIDE RECORDS SUMMARY | 2025-02-06 19:53 | XMS_ITS | Encounter Summary ---
Author Organization [facility] Address [address] [place] [address] Phone Care Team Providers Care Pool Table Operator Name Role Phone Hanh Rodríguez MD Primary Care Provider Encounter Details Date Type Department Care Team (Late st Contact Info) Description 07/02/2020 Ancillary Orders [facility],Outside Imaging [address] [place] [address] System, Provider Not In, [facility] [address] [address] Social History Tobacco Use Types Packs/Day Years [...] on filedocumented in this encounter Care Teams Pool Table Operator Relationship Specialty Start Date End Date Hanh Rodríguez MD [facility] [address] PCP - General Internal Medicine 04/10/20 documented as of this encounter Additional Source Comments The information contained in this document represents components of the legal health record. It is not the complete legal health record.[facility]
--- OUTSIDE RECORDS SUMMARY | 2025-02-06 19:53 | XMS_ITS | Clinical Summary ---
Author Organization [facility] Address [address] [place] [address] Phone Care Team Providers Care Miner Name Role Phone Hanh Rodríguez MD Primary Care Provider [phone] Allergies Active Allergy Reactions Criticality Noted Date [...] AM EDT Office Visit Thoracic Surgery - [place] [address] [facility] [address] [place] [phone] Pattie Herbert MD Pulmonary nodule (Primary Dx); Mediastinal mass 01/11/2025 10:32 AM EDT - 01/11/2025 11:59 PM EDT Hospital Encounter [facility] CT Scan [address] [place] [phone] Pulmonary nodule Discharge Disposition: Home or Self Care 12/06/2024 2:30 PM EDT Consult Thoracic Surgery - [address] [place] [address] Pattie Herbert MD Pulmonary nodule [...] 2. No developing thoracic lymphadenopathy. Telerad NEDA ([id number]) -------- FINAL REPORT -------- Dictated By: Shelly Perea Dictated Date: 01/14/2025 15:10 ET Assigned Physician: Shelly Perea Reviewed and Electronically Signed By: Shelly Perea Signed Date: 01/14/2025 15:24 ET Workstation ID: [id number] Transcribed By: Self Edit Transcribed Date: 01/14/2025 15:10 ET Narrative 01/14/2025 3:24 PM EDT History: Lung nodule, 6 to 8 mm. Comparison: CT abdomen/pelvis 08/09/24 ([place], [place]), CT chest 07/31/21 ([place], [place]) Technique: Helical volumetric imaging of the thorax was performed, using low- dose technique, without IV contrast. DLP: 166.46 mGy/cm GE Winchannelpeed VCT Iterative reconstruction technique Findings: The small solid, noncalcified nodule being followed in the right middle lobe, 2 mm in diameter by my measurement, (image 172 series 4), is unchanged dating back to the [address] [facility] [address], consistent with a benign [...] to 8 mm. Comparison: CT abdomen/pelvis 08/09/24 ([place], [place]), CT chest 07/31/21 ([place], [place]) Technique: Helical volumetric imaging of the thorax was performed, usinglow-dose technique, without IV contrast. DLP: 166.46 mGy/cm GE Winchannelpeed VCT Iterative reconstruction technique Findings: The small solid, noncalcified nodule being followed in the right middlelobe, 2 mm in diameter by my measurement, (image 172 series 4), isunchanged dating back to the [address] [facility] [address], consistentwith a benign process. [...] 2. No developing thoracic [place] ([id number]) -------- FINAL REPORT -------- Dictated By: Shelly Perea Dictated Date: 01/14/2025 15:10 ET Assigned Physician: Shelly Perea Reviewed and Electronically Signed By: Shelly Perea Signed Date: 01/14/2025 15:24 ET Workstation ID: [id number] Transcribed By: Self Edit Transcribed Date: 01/14/2025 15:10 ET Pattie Herbert MD IMG CT PROCEDURES Final Result from Last 3 Months Insurance [facility] [employer] Care Teams Miner Relationship Specialty Start Date End Date Hanh Rodríguez MD [address] [address] PCP - General Internal Medicine 11/20/24
--- OUTSIDE RECORDS SUMMARY | 2025-02-06 19:53 | XMS_ITS | Clinical Summary ---
Author Organization [facility] Address [address] [place] [address] Phone Care Team Providers Care Glove Maker Name Role Phone Hanh Rodríguez MD Primary [...] HEPATITIS C SCREENING 1984 HIV ONE-TIME SCREENING (18-65 YEARS) 1984 COLOGUARD 08/25/2011 COLONOSCOPY 08/25/2011 COLORECTAL CANCER SCREENING 08/25/2011 FIT TEST 08/25/2011 FOBT 08/25/2011 SIGMOIDOSCOPY 08/25/2011 VIRTUAL COLONOSCOPY 08/25/2011 PNEUMOCOCCAL VACCINES (50+ years) (1 of 1 - PCV) 2016 ZOSTER VACCINES (1 of 2) 2016 INFLUENZA VACCINE (#1) 2024 0, 04/09/2018, 02/09/2018, Additional history exists COVID-19 VACCINE (3 - 2024-26 season) 2025 07/07/2020, 06/10/2020 SCREENING FOR DIABETES 08/10/2027 08/09/2024 Adult Td,Tdap Booster 04/02/2030 04/02/2020 , 11/08/2016, 10/26/2012 SMOKING STATUS SCREENING (Once After 26 Yrs) Completed 04/29/2020 HEPATITIS A [...] topic Medical Devices Not on file Insurance [facility] Care Teams Glove Maker Relationship Specialty Start Date End Date Hanh Rodríguez MD [address] [facility] [place] [address] PCP - General Internal Medicine 04/10/20 Additional Source Comments The information contained in this document represents components of the legal health record. It is not the complete legal health record.[facility]
--- OUTSIDE RECORDS SUMMARY | 2025-02-06 19:53 | XMS_ITS | Patient Health Record ---
Author Organization [facility] Address [address] [facility] [place] [address] Care Team Providers Care Contract Serviceman Name Role Phone Anne WHALEY, Hanh Lee Primary Care Provider Un available Azra, Jeremy Unavailable [phone] Allergies Allergen (clinical drug ingredient) Drug/Non Drug [...] Insured Coverage Start Date Coverage End Date [facility] [address] [place] [id number] Marlon Meek Self - patient is the insured Medical (General) History Medical History History ICD Code CAD (Cholesterol) Reflux ( GERD) Warts Surgical History Surgery Date(Month/Year) hernia 1976
--- OUTSIDE RECORDS SUMMARY | 2025-02-06 19:54 | XMS_ITS | Patient Health Record ---
Author Organization [facility] Address [address] [place] [address] Care Team Providers Care Concreting Supervisor Name Role Phone Anne WHALEY, Hanh Primary Care Provider Jamshid Yan [phone] Allergies Allergen (clinical drug ingredient) Drug/Non Drug [...] Problem Status W/U Status Risk Notes Problem [id number] Epigastric abdom inal pain (R10.13) Active confirmed Problem [id number] Encounter for screening for malignant neoplasm of colon (Z12.11) Active confirmed Problem [id number] Nausea (R11.0) Active confirmed Problem [id number] Gastroesophageal reflux disease, esophagitis presence not specified (K21.9) Active confirmed Plan Of Treatment Future Test Test Name Order Date COLONOSCOPY 08/18/2017 Insurance Providers Payer Name Payer Address Payer Phone Subscriber Number Group Number Insured Name Patient Relationship to Insured Coverage Start Date Coverage End Date [facility] [address] [place] [phone] [id number] ERIKA JOYCE Self - patient is the insured Medical (General) History Medical History History ICD Code Denies SC,DM,CVA,Lung disease,renal dise ase Herniated discs in neck and lower back Hyperlipidemia GERD Screening colonoscopy in 09/2017--hyperpl astic polyp only Surgical History Surgery Date(Month/Year) Hernia repair-right inguinal 1978
== END 2025-02-06 19:46 | disposition home or self-care (01) ==
LOC: HO.MRI 19:45
PROVIDERS: PCP Internal Medicine; Visit Provider Orthopaedic Surgery
DX: M25.531 Pain in right wrist (principal)
CPT/HCPCS: 73221

== ENCOUNTER 2025-02-12 14:02 | Outpatient (REF) | payer OTHER, SELFPAY ==
--- NOTE | ~2025-02-12 | XR_ITS ---
EXAMINATION: XR WRIST, RIGHT CLINICAL INFORMATION: M25.531 - Pain in right wrist COMPARISON: 01/18/2025. MRI of the right wrist 02/06/2025. TECHNIQUE: 2 lateral and oblique lateral views of the right wrist were obtained. FINDINGS: No definite acute fracture or dislocation. Normal alignment of the carpal bones allowing for only lateral and oblique lateral projection. There is a 7 mm corticated osseous body dorsal to the medial aspect of the lunate, previously seen and unchanged. This may be sequela of old trauma. There is an additional 8 mm corticated loose body in the full or aspect of the wrist, just anterior to the DRUJ. There is no soft tissue abnormality identified. XR/XR wrist RT 2V IMPRESSION: 1. No acute bony or soft tissue abnormality on these limited lateral projections. 2. Dorsal and volar corticated loose bodies as described. Electronically signed by: Nasim Bell MD 02/12/2025 03:43 PM EDT
== END 2025-02-12 14:03 | disposition home or self-care (01) ==
LOC: HO.HOSX 14:02
PROVIDERS: PCP Internal Medicine; Visit Provider Orthopaedic Surgery
DX: M25.531 Pain in right wrist (principal)
CPT/HCPCS: 73100

== ENCOUNTER 2025-02-12 14:02 | Outpatient (AMB) | payer OTHER, SELFPAY ==
--- NOTE | 2025-02-12 14:24 | MHC.OFFVIS ---
Vital Signs 02/12/25 14:56 Height 6 ft Weight 200 lb BMI 27.1 Handedness Right Intake Visit Reasons: OV- MRI review Wrist Intake Note: Marlon is a 59 year old right hand dominant man who presents today for an MRI review of his right wrist. Patient states he feels his right wrist has not been locking up as much as it first was. 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 He complains of several months intermittent pain in his right dorsal ulnar wrist & elbow. He says his wrist feels like it locks for a few minutes. He says usually his wrist frees itself from locking and his pain resolves. His pain is worse when doing activities such as push-ups He says his pain has been present for several months, but worsened on ~01/12/25 and has been more constant. 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 [facility] Medical History Pulmonary nodule less than 1 cm in diameter with moderate to high risk for malignant neoplasm Impacted cerumen of both ears Vitamin D deficiency History of COVID-19 COVID-19 virus infection Impaired fasting glucose Annual visit for general adult medical examination with abnormal findings GERD (gastroesophageal reflux disease) Dyslipidemia (high LDL; low HDL) Recurrent cold sores Surgical History History of repair of laceration Hx of colonoscopy No pertinent past surgical history Family History Father HTN (hypertension) CVD (cardiovascular disease) Myocardial infarction Mother Diabetes mellitus Lung cancer Stroke Daughter No problems noted. Sister No problems noted. Sister No problems noted. Sister No problems noted. 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: rt hand Cognitive needs: No Hearing needs: No Vision needs: Yes Physical Exam Vital Signs: BMI result Body Mass Index 27.1 Extrem Other: Evaluation of Right Upper Extremity: The patient is alert, oriented, and in no acute distress Neuro: Median, Ulnar, Radial nerves motor and sensory intact Vascular: Cap refill brisk ROM: He can make a tight fist with good strength & no pain No locking or catching No pain with wrist pronation When moving into supination, he feels a clicking sensation in the dorsal aspect of the DRUJ I may be able to palpate the loose body in the dorsal aspect of the DRUJ in slight pronation. DRUJ stable on exam Right wrist MRI: Impression: Small distal radioulnar joint effusion with an 8 mm loose body in the joint. Suspect old trauma of the ulnar aspect of the distal radius as described above. Ill-defined edema of the ulnomeniscal homologue. Suspect old trauma of the pisiform. Small amount of fluid in the radiocarpal joint with mild ill-defined soft tissue edema dorsal to the carpus. Mild extensor carpi ulnaris tendinopathy with a possible short-segment longitudinal split. Mild edema of the pronator quadratus muscle. This document has been electronically signed by: Yves Shaffer MD on 02/07/2025 17:13:58 Radiographs: 3 views of the right wrist from 01/18/25 were reviewed by me today in clinic. Some additional views were taken where the patient pointed to his area of pain. They show no acute fractures or dislocations. There is a loose body coming off the dorsal ulnar corner of the radius, measuring ~7mm*5mm on the PA view. There aso appears to be a small loose body on the volar aspect of the wrist. Assessment & Plan Assessment & Plan (1) Right wrist pain: Code(s): M25.531 - Pain in right wrist Category: Medical Plan Assessment & Plan: 1. Right wrist loose body ~8mm in diameter, in the distal radioulnar joint 1. Right dorsal ulnar wrist pain, more so dorsal to the DRUJ Onset several months ago I educated him about this condition I discussed operative and non-operative treatment options I recommend we wait & see if this improves at this time, and he is in agreement I suspect that a loose body in the DRUJ moved and caused painful locking of his DRUJ over the last few weeks. The question is whether this then resolves itself again or not. We clearly see a loose body in the volar aspect of the DRUJ on MRI. There also appears to be another possible bony loose body in the dorsal aspect of the DRUJ, though this may be attached to something and not be loose. He is more tender dorsally, possibly over a dorsal loose body, versus bony osteophyte, versus dorsal aspect of the distal ulna. We will see him back in 4-5 weeks to see how he is doing. 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 he was given a note to return on light duty, with a 10lb weight limit with his RUE for the next 4 weeks. he will follow up in 4 weeks to see how he is doing. if there is no improvement in his symptoms we may consider surgical intervention Scribed for Lilliam Sosa MD by Pete Du, medical claims assistant, on 02/12/25 at 2:55 PM, EST. Orders: Orders XR wrist RT 2V Today M25.531 - Pain in right wrist Coding Level of Care Code Est Pt Level 4 ([address]7900) Diagnoses Right wrist pain M25.531
[2025-02-12 14:56] VITALS: BMI 27.1
--- OUTSIDE RECORDS SUMMARY | 2025-02-12 17:50 | XMS_ITS | Clinical Summary ---
Author Organization [facility] Address [address] [place] [address] Phone Care Team Providers Care Product Development Ecologist Name Role Phone Hanh Rodríguez MD Primary [...] topic Medical Devices Not on file Insurance [facility] Care Teams Product Development Ecologist Relationship Specialty Start Date End Date Hanh Rodríugez MD [address] [place] [address] PCP - General Internal Medicine 04/10/20 Additional Source Comments The information contained in this document represents components of the legal health record. It is not the complete legal health record.[facility]
--- OUTSIDE RECORDS SUMMARY | 2025-02-12 17:50 | XMS_ITS | Patient Health Record ---
Author Organization [facility] Address [address] [facility] [place] [address] Care Team Providers Care Ophthalmic Pathologist Name Role Phone Anne WHALEY, Hanh Lee Primary Care Provider Un available Azra, Jeremy Unavailable [phone] Allergies Allergen (clinical drug ingredient) Drug/Non Drug [...] Insured Coverage Start Date Coverage End Date [facility] [address] [place] [id number] [phone] [id number] Marlon Meek Self - patient is the insured Medical (General) History Medical History History ICD Code CAD (Cholesterol) Reflux ( GERD) Warts Surgical History Surgery Date(Month/Year) hernia 1976
--- OUTSIDE RECORDS SUMMARY | 2025-02-12 17:51 | XMS_ITS | Clinical Summary ---
Author Organization [facility] [address] [facility] Address [address] [place] [address] Phone Care Team Providers Care Hot Plate Plywood Press Laborer Name Role Phone Hanh Rodríguez MD Primary Care Provider +[phone] Allergies Active Allergy Reactions Criticality Noted Date [...] AM EDT Office Visit Thoracic Surgery - [place] [address] [facility] [address] [place] [phone] Pattie Herbert MD Pulmonary nodule (Primary Dx); Mediastinal mass 01/11/2025 10:32 AM EDT - 01/11/2025 11:59 PM EDT Hospital Encounter [facility] CT Scan [address] [place] [phone] Pulmonary nodule Discharge Disposition: Home or Self Care 12/06/2024 2:30 PM EDT Consult Thoracic Surgery - [address] [place] [address] Pattie Herbert MD Pulmonary nodule [...] 2. No developing thoracic lymphadenopathy. Telerad NEDA ([id number]) -------- FINAL REPORT -------- Dictated By: Shelly Perea Dictated Date: 01/14/2025 15:10 ET Assigned Physician: Shelly Perea Reviewed and Electronically Signed By: Shelly Perea Signed Date: 01/14/2025 15:24 ET Workstation ID: [id number] Transcribed By: Self Edit Transcribed Date: 01/14/2025 15:10 ET Narrative 01/14/2025 3:24 PM EDT History: Lung nodule, 6 to 8 mm. Comparison: CT abdomen/pelvis 08/09/24 ([place], [place]), CT chest 07/31/21 ([place], [place]) Technique: Helical volumetric imaging of the thorax was performed, using low- dose technique, without IV contrast. DLP: 166.46 mGy/cm GE Mater[employer] Medicalpeed VCT Iterative reconstruction technique Findings: The small solid, noncalcified nodule being followed in the right middle lobe, 2 mm in diameter by my measurement, (image 172 series 4), is unchanged dating back to the 2021 [facility] thoracic CT, consistent with a benign [...] to 8 mm. Comparison: CT abdomen/pelvis 08/09/24 ([place], [place]), CT chest 07/31/21 ([place], [place]) Technique: Helical volumetric imaging of the thorax was performed, usinglow-dose technique, without IV contrast. DLP: 166.46 mGy/cm GE Materna Medicalpeed VCT Iterative reconstruction technique Findings: The small solid, noncalcified nodule being followed in the right middlelobe, 2 mm in diameter by my measurement, (image 172 series 4), isunchanged dating back to the 2021 [facility] thoracic CT, consistentwith a benign process. [...] 2. No developing thoracic [place]aden[place]. [place] ([id number]) -------- FINAL REPORT -------- Dictated By: Shelly Perea Dictated Date: 01/14/2025 15:10 ET Assigned Physician: Shelly Perea Reviewed and Electronically Signed By: Shelly Perea Signed Date: 01/14/2025 15:24 ET Workstation ID: [id number] Transcribed By: Self Edit Transcribed Date: 01/14/2025 15:10 ET Pattie Herbert MD IMG CT PROCEDURES Final Result from Last 3 Months Insurance [facility] [employer] Care Teams Hot Plate Plywood Press Laborer Relationship Specialty Start Date End Date Hanh Rodríguez MD [address] [place] [address] PCP - General Internal Medicine 11/20/24
--- OUTSIDE RECORDS SUMMARY | 2025-02-12 17:51 | XMS_ITS | Encounter Summary ---
Author Organization [facility] Address [address] [place] [address] Phone Care Team Providers Care Mathematics Academic Chair Name Role Phone Hanh Rodríguez MD Primary Care Provider Encounter Details Date Type Department Care Team (Late st Contact Info) Description 07/02/2020 Ancillary Orders [facility],Outside Imaging [address] [place] [address] System, Provider Not In, [facility] [address] [address] Social History Tobacco Use Types Packs/Day Years [...] on filedocumented in this encounter Care Teams Mathematics Academic Chair Relationship Specialty Start Date End Date Hanh Rodríguez MD [facility] [place] [address] PCP - General Internal Medicine 04/10/20 documented as of this encounter Additional Source Comments The information contained in this document represents components of the legal health record. It is not the complete legal health record.[facility]
--- OUTSIDE RECORDS SUMMARY | 2025-02-12 17:51 | XMS_ITS | Patient Health Record ---
Author Organization [facility] Address [address] [place] [address] Care Team Providers Care Safety Sealer Name Role Phone Anne WHALEY, Hanh Primary Care Provider Jamshid Yan [phone] Allergies Allergen (clinical drug ingredient) Drug/Non Drug [...] Problem Status W/U Status Risk Notes Problem [id number] Epigastric abdom inal pain (R10.13) Active confirmed Problem [id number] Encounter for screening for malignant neoplasm of colon (Z12.11) Active confirmed Problem 570574699 Nausea (R11.0) Active confirmed Problem 235729426 Gastroesophageal reflux disease, esophagitis presence not specified (K21.9) Active confirmed Plan Of Treatment Future Test Test Name Order Date COLONOSCOPY 08/18/2017 Insurance Providers Payer Name Payer Address Payer Phone Subscriber Number Group Number Insured Name Patient Relationship to Insured Coverage Start Date Coverage End Date [facility] [address] [place] [phone] [id number] ERIKA JOYCE Self - patient is the insured Medical (General) History Medical History History ICD Code Denies [place],DM,CVA,Lung disease,renal dise ase Herniated discs in neck and lower back Hyperlipidemia GERD Screening colonoscopy in 09/2017--hyperpl astic polyp only Surgical History Surgery Date(Month/Year) Hernia repair-right inguinal 1978
--- OUTSIDE RECORDS SUMMARY | 2025-02-12 17:51 | XMS_ITS | Encounter Summary ---
Author Organization [facility] Address [address] [place] [address] Phone Care Team Providers Care Systems Lead Name Role Phone Hanh Rodríguez MD Primary Care Provider Encounter Details Date Type Department Care Team (Late st Contact Info) Description 08/09/2024 Procedure Pass [facility], Ct Scan - [address] [address] Social History Tobacco Use Types Packs/Day Years [...] 5:21 PM EDT Nafisa Villanueva RN * [place] Suicide Severity Rating Scale (Screener/Recent Self-Report) Question [...] on filedocumented in this encounter Care Teams Systems Lead Relationship Specialty Start Date End Date Hanh Rodríguez MD [address] [facility] [place] [place] [address] PCP - General Internal Medicine 04/10/20 documented as of this encounter Additional Source Comments The information contained in this document represents components of the legal health record. It is not the complete legal health record.[facility]
== END 2025-02-12 15:55 | disposition home or self-care (01) ==
LOC: HO.HOS 14:03
PROVIDERS: PCP Internal Medicine; Visit Provider Orthopaedic Surgery
DX: M25.531 Pain in right wrist (principal)
CPT/HCPCS: 99214

== ENCOUNTER → 2025-02-12 15:17 | Outpatient (BNV) | payer OTHER, SELFPAY | PROVIDERS: PCP Internal Medicine; Visit Provider Radiology Diagnostic Radiology | DX: M24.031 Loose body in right wrist (principal) | CPT/HCPCS: 73100 ==

== ENCOUNTER 2025-03-20 09:36 | Outpatient (REF) | payer OTHER, SELFPAY ==
--- NOTE | ~2025-03-20 | XR_ITS ---
EXAMINATION: XR WRIST, RIGHT CLINICAL INFORMATION: M25.531 - Pain in right wrist COMPARISON: February 12, 2025 Correlated to MRI wrist dated February 06, 2025 demonstrated small loose bodies. TECHNIQUE: PA, lateral, and oblique views of the right wrist. FINDINGS: 7 mm well-corticated calcification in the dorsal aspect of the wrist. No acute cortical disruption or malalignment. No lytic or blastic lesions. Chondrocalcinosis carpal ulnar joint. No subcutaneous emphysema. XR/XR wrist RT min 3V IMPRESSION: No acute fracture or dislocation. Loose bodies, dorsal right wrist. Consider CPPD Electronically signed by: Aguilar Bruner MD 03/20/2025 10:54 AM EDT
--- OUTSIDE RECORDS SUMMARY | 2025-03-20 11:05 | XMS_ITS | Clinical Summary ---
Author Organization [facility] Address [address] [place] [address] Phone Care Team Providers Care Compensation And Benefits Manager Name Role Phone Hanh Rodríguez MD Primary [...] Additional history exists COVID-19 VACCINE (3 - 2024- season) 2025 07/07/2020, 06/10/2020 SCREENING FOR DIABETES 08/10/2027 08/09/2024 Adult Td,Tdap Booster 04/02/2030 04/02/2020 , 11/08/2016, 10/26/2012 RSV VACCINE (1 - 1-dose 75+ series) 2041 SMOKING STATUS SCREENING (Once After 26 Yrs) [...] Devices Not on file Insurance [facility] [place] [id number] [facility] [place] [address] [facility] [place] [address] [facility] Care Teams Compensation And Benefits Manager Relationship Specialty Start Date End Date Hanh Rodríguez MD [facility] [address], [place] [address] PCP - General Internal Medicine 04/10/20 Additional Source Comments The information contained in this document represents components of the legal health record. It is not the complete legal health record.[facility]
--- OUTSIDE RECORDS SUMMARY | 2025-03-20 11:06 | XMS_ITS | Patient Health Record ---
Author Organization [facility] Address [address] [facility] [address] Care Team Providers Care Consulting Solution Director Name Role Phone Anne WHALEY, Hanh Lee Primary Care Provider Un available Azra, Jeremy Unavailable [phone] Allergies Allergen (clinical drug ingredient) Drug/Non Drug [...] Insured Coverage Start Date Coverage End Date [facility] [address] [place] [address] [phone] [id number] Marlon Meek Self - patient is the insured Medical (General) History Medical History History ICD Code CAD (Cholesterol) Reflux ( GERD) Warts Surgical History Surgery Date(Month/Year) hernia 1976
--- OUTSIDE RECORDS SUMMARY | 2025-03-20 11:06 | XMS_ITS | Encounter Summary ---
Author Organization [facility] Address [address] [place] [address] Phone Care Team Providers Care Team Guide Name Role Phone Hanh Rodríguez MD Primary Care Provider Encounter Details Date Type Department Care Team (Late st Contact Info) Description 07/02/2020 Ancillary Orders [facility],Outside Imaging [address] [place] [address] System, Provider Not In, [facility] [address] [address] Social History Tobacco Use Types Packs/Day Years [...] on filedocumented in this encounter Care Teams Team Guide Relationship Specialty Start Date End Date Hanh Rodríguez MD [facility] [place] [address] PCP - General Internal Medicine 04/10/20 documented as of this encounter Additional Source Comments The information contained in this document represents components of the legal health record. It is not the complete legal health record.[facility]
--- OUTSIDE RECORDS SUMMARY | 2025-03-20 11:06 | XMS_ITS | Encounter Summary ---
Author Organization [facility] Address [address] [place] [address] Phone Care Team Providers Care Advanced Analytics Associate Name Role Phone Hanh Rodríguez MD Primary Care Provider Encounter Details Date Type Department Care Team (Late st Contact Info) Description 08/09/2024 Procedure Pass [facility], Ct Scan - [address] [address] Social History Tobacco Use Types Packs/Day Years [...] 5:21 PM EDT Nafisa Villanueva RN * [place] Suicide Severity Rating Scale (Screener/Recent Self-Report) Question [...] on filedocumented in this encounter Care Teams Advanced Analytics Associate Relationship Specialty Start Date End Date Hanh Rodríguez MD [address] [facility] [address] PCP - General Internal Medicine 04/10/20 documented as of this encounter Additional Source Comments The information contained in this document represents components of the legal health record. It is not the complete legal health record.[facility]
--- OUTSIDE RECORDS SUMMARY | 2025-03-20 11:06 | XMS_ITS | Patient Health Record ---
Author Organization [facility] Address [address] [place] [address] Care Team Providers Care Welder Explosion Name Role Phone Hanh Rodríguez MD Primary Care Provider Jamshid Yan [phone] Allergies Allergen (clinical drug ingredient) Drug/Non Drug Allergy documented on EMR Reaction Allergy Type Onset Date Status hydromorphone Dilaudid Unknown Drug Allergy Act dion Reason For Referral No Information Medications Medication SIG (Take, Route, Frequency, Duration) Notes Start Date End Date Status Omeprazole 20 MG 1 capsule Orally Onc e a day; Duration: 30 day(s) Started 04/2018 Active Lovastatin 20 MG 1 tablet with a meal Orally Once a day Active Problems Problem Type SNOMED Code ICD Code Onset Dates Problem Status W/U Status Risk Notes Problem Epigastric pain (41099463) Epigastric abdominal pain (R10.13) Active confirmed Problem Screening for malignant neoplasm of colon (773049761) Encounter for screening for malignant neoplasm of colon (Z12.11) Active confirmed Problem Nausea (256732827) Nausea (R11.0) Active confir med Problem Gastroesophageal reflux disease (645118094) Gastroesophageal reflux disease, esophagitis presence not specified (K21.9) Active confirmed Plan Of Treatment Future Test Test Name Order Date COLONOSCOPY 08/18/2017 Insurance Providers Payer Name Payer Address Payer Phone Subscriber Number Group Number Insured Name Patient Relationship to Insured Coverage Start Date Coverage End Date [facility] [address] [place] [phone] [id number] ERIKA JOYCE Self - patient is the insured Medical (General) History Medical History History ICD Code Denies [place],DM,CVA,Lung disease,renal dise ase Herniated discs in neck and lower back Hyperlipidemia GERD Screening colonoscopy in 09/2017--hyperpl astic polyp only Surgical History Surgery Date(Month/Year) Hernia repair-right inguinal 1978
--- OUTSIDE RECORDS SUMMARY | 2025-03-20 11:06 | XMS_ITS | Clinical Summary ---
Author Organization [facility] Address [address] [place] [address] Phone Care Team Providers Care Wallpaper Consultant Name Role Phone Hanh Rodríguez MD Primary Care Provider [phone] Allergies Active Allergy Reactions Criticality Noted Date [...] AM EDT Office Visit Thoracic Surgery - [place] [address] [facility] [address] [place] [id number] Pattie Herbert MD Pulmonary nodule (Primary Dx); Mediastinal mass 01/11/2025 10:32 AM EDT - 01/11/2025 11:59 PM EDT Hospital Encounter [facility] CT Scan [address] [place] [address] Pulmonary nodule Discharge Disposition: Home or Self Care from Last 3 Months Surgical History Surgery [...] Health Maintenance Due Date Last Done Comments Colorectal Cancer Screening: Colonoscopy 1966 Hepatitis B Vaccines (1 of 3 - 19+ 3-dose series) 1985 Pneumococcal Vaccine: 50+ Ye ars (1 of 1 - PCV) 2016 Zoster Vaccines (1 of 2) 2016 Depression Screening 05/30/2024 Cholesterol Screening (Lipid Panel) 11/21/2024 HIV Screening 11/21/2024 Hepatitis C Screening 11/21/2024 Social Influencers of Health Screening 11/21/2024 COVID-19 Vaccine ( - 2023-2 5 season) 2025 Influenza Vaccine (#1) 2025 DTaP,Tdap,and Td Vaccines (2 - Td or Tdap) 04/02/2030 04/02/2020 RSV Immunization Adult Patie nts (1 - 1-dose 75+ series) 2041 HIB Vaccines Aged Out No longer eligi [...] 2. No developing thoracic [place] ([id number]) -------- FINAL REPORT -------- Dictated By: Shelly Perea Dictated Date: 01/14/2025 15:10 ET Assigned Physician: Shelly Perea Reviewed and Electronically Signed By: Shelly Perea Signed Date: 01/14/2025 15:24 ET Workstation ID: [id number] Transcribed By: Self Edit Transcribed Date: 01/14/2025 15:10 ET Narrative 01/14/2025 3:24 PM EDT History: Lung nodule, 6 to 8 mm. Comparison: CT abdomen/pelvis 08/09/24 ([facility], [place], [place]), CT chest 07/31/21 ([facility], [place], [place]) Technique: Helical volumetric imaging of the thorax was performed, using low- dose technique, without IV contrast. DLP: 166.46 mGy/cm GE Lightspeed VCT Iterative reconstruction technique Findings: The small solid, noncalcified nodule being followed in the right middle lobe, 2 mm in diameter by my measurement, (image 172 series 4), is unchanged dating back to the [address] [facility] [address], consistent with a benign [...] to 8 mm. Comparison: CT abdomen/pelvis 08/09/24 ([facility],[place], [place]), CT chest 07/31/21 ([facility], [place], [place]) Technique: Helical volumetric imaging of the thorax was performed, usinglow-dose technique, without IV contrast. DLP: 166.46 mGy/cm GE FedBidpeed VCT Iterative reconstruction technique Findings: The small solid, noncalcified nodule being followed in the right middlelobe, 2 mm in diameter by my measurement, (image 172 series 4), isunchanged dating back to the [address] [facility] [address], consistentwith a benign process. [...] 2. No developing [place] ([id number]) -------- FINAL REPORT -------- Dictated By: Shelly Perea Dictated Date: 01/14/2025 15:10 ET Assigned Physician: Shelly Perea Reviewed and Electronically Signed By: Shelly Perea Signed Date: 01/14/2025 15:24 ET Workstation ID: [id number] Transcribed By: Self Edit Transcribed Date: 01/14/2025 15:10 ET Pattie Herbert MD IMG CT PROCEDURES Final Result from Last 3 Months Insurance [facility] [employer] Care Teams Wallpaper Consultant Relationship Specialty Start Date End Date Hanh Rodríguez MD [address] [address] PCP - General Internal Medicine 11/20/24
== END 2025-03-20 09:37 | disposition home or self-care (01) ==
LOC: HO.HOSX 09:36
PROVIDERS: Visit Provider Orthopaedic Surgery
DX: M25.531 Pain in right wrist (principal); M24.031 Loose body in right wrist
CPT/HCPCS: 73110

== ENCOUNTER 2025-03-20 10:43 | Outpatient (AMB) | payer OTHER, SELFPAY ==
--- NOTE | 2025-03-20 11:31 | MHC.OFFVIS ---
Intake Visit Reasons: OV- DRUJ pain Intake Note: Marlon is a 59 year old right hand dominant male who presents today for his follow up of his right distal radioulnar joint pain. At his last visit he was advise to give time to heal. 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 Today patient states his ROM is better, pain comes and goes when his wrist locks up, sharp pain on and off. 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 He complains of several months intermittent pain in his right dorsal ulnar wrist & elbow. He says his wrist feels like it locks for a few minutes. He says usually his wrist frees itself from locking and his pain resolves. His pain is worse when doing activities such as push-ups He says his pain has improved over the last month, and is episodes of locking and become less frequent. He says his ROM has improved somewhat as well. 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 [facility] Medical History Pulmonary nodule less than 1 cm in diameter with moderate to high risk for malignant neoplasm Impacted cerumen of both ears Vitamin D deficiency History of COVID-19 COVID-19 virus infection Impaired fasting glucose Annual visit for general adult medical examination with abnormal findings GERD (gastroesophageal reflux disease) Dyslipidemia (high LDL; low HDL) Recurrent cold sores Surgical History History of repair of laceration Hx of colonoscopy No pertinent past surgical history Family History Father HTN (hypertension) CVD (cardiovascular disease) Myocardial infarction Mother Diabetes mellitus Lung cancer Stroke Daughter No problems noted. Sister No problems noted. Sister No problems noted. Sister No problems noted. 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 Cognitive needs: No Hearing needs: No Vision needs: Yes Physical Exam Extrem Other: Evaluation of Right Upper Extremity: The patient is alert, oriented, and in no acute distress Neuro: Median, Ulnar, Radial nerves motor and sensory intact Vascular: Cap refill brisk ROM: He can make a tight fist with good strength & no pain No locking or catching He has improved his wrist flexion & extension No pain with wrist pronation When moving into supination, he feels a clicking sensation in the dorsal aspect of the DRUJ I may be able to palpate the loose body in the dorsal aspect of the DRUJ in slight pronation. DRUJ stable on exam Right wrist MRI: Impression: Small distal radioulnar joint effusion with an 8 mm loose body in the joint. Suspect old trauma of the ulnar aspect of the distal radius as described above. Ill-defined edema of the ulnomeniscal homologue. Suspect old trauma of the pisiform. Small amount of fluid in the radiocarpal joint with mild ill-defined soft tissue edema dorsal to the carpus. Mild extensor carpi ulnaris tendinopathy with a possible short-segment longitudinal split. Mild edema of the pronator quadratus muscle. This document has been electronically signed by: Yves Shaffer MD on 02/07/2025 17:13:58 Radiographs: 3 views of the right wrist were taken and viewed by me today in clinic. Some additional views were taken where the patient pointed to his area of pain. They show no acute fractures or dislocations. There is a loose body coming off the dorsal ulnar corner of the radius, measuring ~7mm*5mm on the PA view. There aso appears to be a small loose body on the volar aspect of the wrist. Assessment & Plan Assessment & Plan (1) Right wrist pain: Code(s): M25.531 - Pain in right wrist Category: Medical Plan Assessment & Plan: 1. Right wrist loose body ~8mm in diameter, in the distal radioulnar joint 2. Right dorsal ulnar wrist pain, more so dorsal to the DRUJ Onset several months ago I educated him about this condition I had a long discussion with him concerning operative treatment options, he is not ready to proceed with surgery at this time as he would be out of work for ~2 months in recovery. I recommend we wait & see if this improves at this time, and he is in agreement I suspect that a loose body in the DRUJ moved and caused painful locking of his DRUJ over the last few weeks. The question is whether this then resolves itself again or not. We clearly see a loose body in the volar aspect of the DRUJ on MRI. It is possible that we may be able to get the volar osteophyte through a dorsal approach to the DRUJ. There also appears to be another possible bony loose body in the dorsal aspect of the DRUJ, though this may be attached to something and not be loose. He is more tender dorsally, possibly over a dorsal loose body, versus bony osteophyte, versus dorsal aspect of the distal ulna. 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 He was given a note to return on light duty, with a 10lb weight limit with his RUE until his next appointment He will follow up in 4-6 weeks to see how he is doing, with X-rays, 3V R wrist Scribed for Lilliam Sosa MD by Pete Du, hospitalist medical director, on 03/20/25 at 11:35 AM, EST. Orders: Orders XR wrist RT min 3V 03/20/25 M25.531 - Pain in right wrist Coding Level of Care Code Est Pt Level 4 (45617) Diagnoses Right wrist pain M25.531
== END 2025-03-20 11:57 | disposition home or self-care (01) ==
LOC: HO.HOS 10:43
PROVIDERS: PCP Internal Medicine; Visit Provider Orthopaedic Surgery
DX: M25.531 Pain in right wrist (principal)
CPT/HCPCS: 99214

== ENCOUNTER → 2025-03-20 10:45 | Outpatient (BNV) | payer OTHER, SELFPAY | PROVIDERS: Visit Provider Radiology Diagnostic Radiology | DX: M25.531 Pain in right wrist (principal) | CPT/HCPCS: 73110 ==

== ENCOUNTER 2025-04-24 09:05 | Outpatient (REF) | payer OTHER, SELFPAY ==
--- NOTE | ~2025-04-24 | XR_ITS ---
EXAMINATION: XR WRIST, RIGHT CLINICAL INFORMATION: M25.531 - Pain in right wrist COMPARISON: 03/20/2025, 02/12/2025. MRI of the right wrist 02/06/2025. TECHNIQUE: PA, lateral, and oblique views of the right wrist. FINDINGS: No definite acute fracture or dislocation. Normal alignment of the carpal bones. Joint spaces appear preserved. Redemonstration of a 7 mm corticated osseous body dorsal to the medial aspect of the lunate, previously seen and unchanged. This may be sequela of trauma. Previously seen 8 mm corticated loose body in the volar aspect of the wrist, just anterior to the DRUJ is poorly seen on today's examination, largely obscured by overlapping structures. There is no soft tissue abnormality identified. XR/XR wrist RT min 3V IMPRESSION: No significant interval change. Stable examination from 03/20/2025. Electronically signed by: Nasim Bell MD 04/24/2025 10:42 AM MARINE
== END 2025-04-24 09:06 | disposition home or self-care (01) ==
LOC: HO.HOSX 09:05
PROVIDERS: Visit Provider Orthopaedic Surgery
DX: M25.531 Pain in right wrist (principal)
CPT/HCPCS: 73110

== ENCOUNTER 2025-04-24 09:05 | Outpatient (AMB) | payer OTHER, SELFPAY ==
[2025-04-24 09:38] VITALS: BMI 27.1
--- NOTE | 2025-04-24 09:38 | A.OFFVIS_ITS ---
Vital Signs 04/24/25 09:38 Height 6 ft Weight 200 lb BMI 27.1 Intake Visit Reasons: OV- DRUJ pain Intake Note: Marlon is a 59 year old right hand dominant male who presents today for his follow up of his right distal radioulnar joint pain. At his last visit he was advise to give time to heal on its own. 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 He was given a note to return on light duty, with a 10lb weight limit with his RUE until his next appointment. Today patient states his wrist has not locked since his last visit. States he feels ready to return to work full duty as long as his wrist no longer locks. Denies numbness or tingling in hand or fingers. 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 He says his pain has improved over the last month, and is episodes of locking and become less frequent, and in fact he says he has not had his wrist lock since his last appointment. He says his ROM has improved somewhat as well. 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 [facility] Medical History Pulmonary nodule less than 1 cm in diameter with moderate to high risk for malignant neoplasm Impacted cerumen of both ears Vitamin D deficiency History of COVID-19 COVID-19 virus infection Impaired fasting glucose Annual visit for general adult medical examination with abnormal findings GERD (gastroesophageal reflux disease) Dyslipidemia (high LDL; low HDL) Recurrent cold sores Surgical History History of repair of laceration Hx of colonoscopy No pertinent past surgical history Family History Father HTN (hypertension) CVD (cardiovascular disease) Myocardial infarction Mother Diabetes mellitus Lung cancer Stroke Daughter No problems noted. Sister No problems noted. Sister No problems noted. Sister No problems noted. 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 No pain with any wrist ROM DRUJ stable on exam Right wrist MRI: Impression: Small distal radioulnar joint effusion with an 8 mm loose body in the joint. Suspect old trauma of the ulnar aspect of the distal radius as described above. Ill-defined edema of the ulnomeniscal homologue. Suspect old trauma of the pisiform. Small amount of fluid in the radiocarpal joint with mild ill-defined soft tissue edema dorsal to the carpus. Mild extensor carpi ulnaris tendinopathy with a possible short-segment longitudinal split. Mild edema of the pronator quadratus muscle. This document has been electronically signed by: Yves Shaffer MD on 02/07/2025 17:13:58 Radiographs: 3 views of the right wrist were taken and viewed by me today in clinic. Some additional views were taken where the patient pointed to his area of pain. They show no acute fractures or dislocations. There is a loose body coming off the dorsal ulnar corner of the radius, measuring ~7mm*5mm on the PA view. There aso appears to be a small loose body on the volar aspect of the wrist. Assessment & Plan Assessment & Plan (1) Right wrist pain: Code(s): M25.531 - Pain in right wrist Category: Medical Plan Assessment & Plan: 1. Right wrist loose body ~8mm in diameter, in the distal radioulnar joint 2. Right dorsal ulnar wrist pain, more so dorsal to the DRUJ Onset several months ago I educated him about this condition This has improved since his last appointment and the patient reports no episodes of locking since his last appointment. I suspect that a loose body in the DRUJ moved and caused painful locking of his DRUJ. The question is whether this then resolves itself again or not. We clearly see a loose body in the volar aspect of the DRUJ on MRI. It is possible that we may be able to get the volar osteophyte through a dorsal approach to the DRUJ. There also appears to be another possible bony loose body in the dorsal aspect of the DRUJ, though this may be attached to something and not be loose. He is more tender dorsally, possibly over a dorsal loose body, versus bony osteophyte, versus dorsal aspect of the distal ulna. At present it looks like we can still treat this non operatively as long as he remains asymptomatic. 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 Possible return to full duty if he is still does not have any more episodes of painful wrist locking Scribed for Lilliam Sosa MD by Pete uD, medical massage therapist, on 04/24/25 at 10:00 AM, EST. Orders: Orders XR wrist RT min 3V Today M25.531 - Pain in right wrist Coding Level of Care Code Est Pt Level 3 (50233) Diagnoses Right wrist pain M25.531
--- OUTSIDE RECORDS SUMMARY | 2025-04-24 09:50 | XMS_ITS | Clinical Summary ---
Author Organization [facility] Address [address] [place] [phone] Phone Care Team Providers Care Reclamation Kettle Tender Name Role Phone Hanh Rodríguez MD Primary [...] topic Medical Devices Not on file Insurance [facility] [place] [address] [facility] [place] [address] [facility] [address] [facility] Care Teams Reclamation Kettle Tender Relationship Specialty Start Date End Date Hanh Rodríguez MD [facility] [address], [place] [address] PCP - General Internal Medicine 04/10/20 Additional Source Comments The information contained in this document represents components of the legal health record. It is not the complete legal health record.[facility]
--- OUTSIDE RECORDS SUMMARY | 2025-04-24 09:50 | XMS_ITS | Patient Health Record ---
Author Organization [facility] Address [address] [place] [address] Care Team Providers Care Sales Department Supervisor Name Role Phone Anne WHALEY, Hanh Lee Primary Care Provider Un available Azra, Jeremy Unavailable [phone] Allergies Allergen (clinical drug ingredient) Drug/Non Drug [...] Insured Coverage Start Date Coverage End Date [facility] [address] [place] [address] [id number] Marlon Meek Self - patient is the insured Medical (General) History Medical History History ICD Code CAD (Cholesterol) Reflux ( GERD) Warts Surgical History Surgery Date(Month/Year) hernia 1976
--- OUTSIDE RECORDS SUMMARY | 2025-04-24 09:51 | XMS_ITS | Patient Health Record ---
Author Organization [facility] Address [address] [place] [address] Care Team Providers Care Calibration Checker Name Role Phone Anne WHALEY, Hanh Primary Care Provider Jamshid Yan [phone] Allergies Allergen (clinical drug ingredient) Drug/Non Drug Allergy documented on EMR Reaction Allergy Type Onset Date Status hydromorphone Dilaudid Unknown Drug Allergy Act dion Reason For Referral No Information Medications Medication SIG (Take, Route, Frequency, Duration) Notes Start Date End Date Status Omeprazole 20 MG Capsule Delayed Release 1 capsule Orally Once a day; Duration: 30 day(s) Started 04/2018 Active Lovastatin 20 MG Tablet 1 tablet with a meal Orally Once a day Active Social History Social History Additional Details Category Social Info Options Details Miscellaneous: Marital status: 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 Section Notes: Nonsmoker; no sig alcohol Nonsmoker; no sig alcohol Nonsmoker; no sig alcohol Problems Problem Type SNOMED Code ICD Code Onset Dates Problem Status W/U Status Risk Notes Problem Epigastric pain (08122401) Epigastric abdominal pain (R10.13) Active confirmed Problem Screening for malignant neoplasm of colon (434306799) Encounter for screening for malignant neoplasm of colon (Z12.11) Active confirmed Problem Nausea (050444602) Nausea (R11.0) Active confir med Problem Gastroesophageal reflux disease (378112648) Gastroesophageal reflux disease, esophagitis presence not specified (K21.9) Active confirmed Plan Of Treatment Future Test Test Name Order Date COLONOSCOPY 08/18/2017 Insurance Providers Payer Name Payer Address Payer Phone Subscriber Number Group Number Insured Name Patient Relationship to Insured Coverage Start Date Coverage End Date [facility] [address] [place] [phone] [id number] PAGE, ERIKA Self - patient is the insured Medical (General) History Medical History History ICD Code Denies AR,DM,CVA,Lung disease,renal dise ase Herniated discs in neck and lower back Hyperlipidemia GERD Screening colonoscopy in 09/2017--hyperpl astic polyp only Surgical History Surgery Date(Month/Year) Hernia repair-right inguinal 1978
--- OUTSIDE RECORDS SUMMARY | 2025-04-24 09:51 | XMS_ITS | Clinical Summary ---
Author Organization [facility] [address] [facility] Address [address] [place] [address] Phone Care Team Providers Care Heel Cementer Name Role Phone Hanh Rodríguez MD Primary Care Provider [phone] Allergies Active Allergy Reactions Criticality Noted Date [...] Date Mediastinal mass 01/18/2025 Pulmonary nodule 12/06/2024 Surgical History Surgery Date Site/Laterality Comments OTHER [...] Health Screening 11/21/2024 COVID-19 Vaccine (1 - 2024-2 6 season) 2025 Influenza Vaccine (#1) 2025 DTaP,Tdap,and [...] patient's age to complete this topic Insurance [facility] [employer] Care Teams Heel Cementer Relationship Specialty Start Date End Date Hanh Rodríguez MD [address] [place] [address] PCP - General Internal Medicine 11/20/24
--- OUTSIDE RECORDS SUMMARY | 2025-04-24 09:51 | XMS_ITS | Encounter Summary ---
Author Organization [facility] Address [address] [place] [phone] Phone Care Team Providers Care Wireless Retail Manager Name Role Phone Hanh Rodríguez MD Primary Care Provider Encounter Details Date Type Department Care Team (Late st Contact Info) Description 08/09/2024 Procedure Pass [facility], Ct Scan - [address] [address] Social History Tobacco Use Types Packs/Day Years [...] 5:21 PM EDT Nafisa Villanueva RN * [place] Suicide Severity Rating Scale (Screener/Recent Self-Report) Question [...] on filedocumented in this encounter Care Teams Wireless Retail Manager Relationship Specialty Start Date End Date Hanh Rodríguez MD [address] [place] [address] PCP - General Internal Medicine 04/10/20 documented as of this encounter Additional Source Comments The information contained in this document represents components of the legal health record. It is not the complete legal health record.[facility]
--- OUTSIDE RECORDS SUMMARY | 2025-04-24 09:51 | XMS_ITS | Encounter Summary ---
Author Organization [facility] Address [address] [place] [address] Phone Care Team Providers Care Automotive Hardware Engineer Name Role Phone Hanh Rodríguez MD Primary Care Provider Encounter Details Date Type Department Care Team (Late st Contact Info) Description 07/02/2020 Ancillary Orders [facility],Outside Imaging [address] [place] [address] System, Provider Not In, [facility] [address] [address] Social History Tobacco Use Types Packs/Day Years [...] on filedocumented in this encounter Care Teams Automotive Hardware Engineer Relationship Specialty Start Date End Date Hanh Rodríguez MD [facility] [place] [address] PCP - General Internal Medicine 04/10/20 documented as of this encounter Additional Source Comments The information contained in this document represents components of the legal health record. It is not the complete legal health record.[facility]
== END 2025-04-24 10:13 | disposition home or self-care (01) ==
LOC: HO.HOS 09:07
PROVIDERS: Visit Provider Orthopaedic Surgery
DX: M25.531 Pain in right wrist (principal)
CPT/HCPCS: 99213

== ENCOUNTER → 2025-04-24 09:28 | Outpatient (BNV) | payer OTHER, SELFPAY | PROVIDERS: Visit Provider Radiology Diagnostic Radiology | DX: M25.531 Pain in right wrist (principal) | CPT/HCPCS: 73110 ==